=== PATIENT | female | born 1965 | race Caucasian/White ===

== ENCOUNTER 2016-09-18 08:17 | Inpatient (IN) | payer OTHER ==
--- NOTE | 2016-09-18 08:24 | PDOC ---
History of Present Illness - General Chief Complaint: Respiratory Stated Complaint: FEVER,CHILLS Time Seen by Provider: 09/18/16 08:22 History Source: Patient Exam Limitations: No Limitations - History of Present Illness Initial Comments: 09/18/16 08:30 This is a 50 yo F with a history oc Mental retardation, hypothyroidism, prior admission for pneumonia and sepsis Pt has an aspiration risk based on swallowing evaluation and eats pureed foods Pt presents with her aid due to shivering Pt temp checked and noted to be 100.3 No influenza in fellow residents Pt has a history of recurrent pneumonia PMH: Mental retardation, hypothyroidism PSH: denies Meds: please see MAR ALL: Naltrexone Social: lives at a detention 09/18/16 08:31 Limited given pt mental retardation This was obtained from staff members GENERAL/CONSTITUTIONAL: Yes:fever No: weakness, loss of appetite. HEAD, EYES, EARS, NOSE AND THROAT: No: change in vision, ear pain, discharge, sore throat, throat swelling. CARDIOVASCULAR: No: chest pain, syncope RESPIRATORY: Yes: cough No: shortness of breath, wheezing GASTROINTESTINAL: No: nausea, vomiting, diarrhea, abdominal pain GENITOURINARY: No: dysuria, hematuria, frequency, urgency, flank pain. MUSCULOSKELETAL: No: back pain, neck pain, joint pain, muscle swelling or pain SKIN : No: rahs NEUROLOGIC: No: headache, vertigo, paresthesias, weakness ENDOCRINE: No: unexplained weight gain or loss HEMATOLOGIC/LYMPHATIC: No: anemia, easy bleeding, swelling nodes. GENERAL: The patient is in no acute distress. HEAD: Normal with no signs of trauma. EYES: PERRLA, EOMI, sclera anicteric, conjunctiva clear. ENT: Ears normal, nares patent, oropharynx clear without exudates. Moist mucous membranes. NECK: Normal range of motion, supple without lymphadenopathy, JVD, or masses. LUNGS: Bilateral rhonchi at bases, No wheezes, and no crackles. HEART: Tachycardiac, regular, ? murmur LSB ABDOMEN: Soft, nontender, normoactive bowel sounds. No guarding, no rebound. No masses palpable. EXTREMITIES: Normal range of motion, no edema. No clubbing or cyanosis. No erythema, or tenderness. NEUROLOGICAL: Cranial nerves II through XII grossly intact. Normal speech. No focal neurological deficits. MUSCULOSKELETAL: Back non-tender to palpation, no CVA tenderness SKIN: Warm, Dry, normal turgor, no rashes or lesions noted. 09/18/16 09:14 Past History - Past Medical History Allergies/Adverse Reactions: Allergies Allergy/AdvReac Type Severity Reaction Status Date / Time naltrexone HCl [From Trexan] Allergy Unknown Verified 09/18/16 08:19 Home Medications: Ambulatory Orders Buspirone HCl [Buspar -] 15 mg PO TID 09/05/15 Cetirizine HCl 10 mg PO DAILY 09/05/15 Levothyroxine [Synthroid -] 75 mcg PO DAILY 09/05/15 Lovastatin 20 mg PO DAILY 09/05/15 Alendronate Sodium [Binosto] 70 mg PO WEEKLY 09/06/15 Omeprazole [Prilosec] 20 mg PO BID 12/17/15 Aripiprazole [Abilify] 20 mg PO DAILY 07/04/16 Montelukast Na [Singulair -] 10 mg PO HS 07/04/16 Albuterol 2.5/Ipratropium 0.5 [Duoneb -] 1 amp NEB Q4H PRN #0 amp 08/12/16 Acetaminophen [Tylenol] 325 mg PO QID PRN 09/18/16 Aripiprazole [Abilify] 20 mg PO DAILY 09/18/16 Ascorbate Calcium [Vitamin C] 500 mg PO DAILY 09/18/16 Calcium Carb/Vitamin D3/Vit K1 [Calcium + D Soft Chewable Tab] 1 each PO DAILY 09/18/16 Sodium Chloride 1,000 mg PO TID 09/18/16 Valproate Sodium [Depakene -] 25 ml PO HS 09/18/16 Asthma: Yes Hypercholesterolemia: Yes Psychiatric Problems: Yes (INTELLECTUAL DISABILITY, BEHAVIOR DISORDER) Thyroid Disease: Yes (hypo) - Surgical History Abdominal Surgery: No - Immunization History Immunization Up to Date: Yes - Psycho/Social/Smoking Cessation Hx Anxiety: No Suicidal Ideation: No Smoking History: Never smoked Have you smoked in the past 12 months: No Hx Alcohol Use: No Drug/Substance Use Hx: No Substance Use Type: None Hx Substance Use Treatment: No Heart Score/ECG Review #1 ECG reviewed & interpreted by me at: 10:27 09/18/16 10:27 Twelve-lead EKG was performed and reviewed by me. There is normal sinus rhythm with a tachycardiac rate of 105 bpm. The axis is normal. The intervals are normal - pr:134ms, QRS:72ms, QTc:401ms. J point elevation v2, v3. T wave flattening V4-v6 ED Treatment Course - LABORATORY CBC & Chemistry Diagram: 09/18/16 08:28 09/18/16 08:49 Medical Decision Making - Medical Decision Making 09/18/16 08:32 Selected Entries 09/18/16 08:18 Temperature 101 F H Pulse Rate 132 H Blood Pressure 117/63 O2 Sat by Pulse 94 L Oximetry (%) 09/18/16 09:19 09/18/16 09:49 Laboratory Tests 09/18/16 09/18/16 09/18/16 08:28 08:39 08:40 WBC 32.5 H* D Hgb 10.9 Hct 33.5 Plt Count 382 D VBG pH 7.37 POC VBG pCO2 48.4 POC VBG pO2 26.6 L Sodium Potassium Chloride Carbon Dioxide BUN Creatinine Random Glucose Ur Leukocyte Esterase Trace H Urine RBC 0-3 Urine WBC 0-3 09/18/16 08:49 WBC Hgb Hct Plt Count VBG pH POC VBG pCO2 POC VBG pO2 Sodium 133 L D Potassium 4.6 Chloride 98 D Carbon Dioxide 26 D BUN 15 Creatinine 1.0 D Random Glucose 180 H D Ur Leukocyte Esterase Urine RBC Urine WBC CXR: RUL infiltrates noted Pt ordered for vanc and Zosyn (based on chart review) Call placed to hospitalist Given pt history of resp failure and acute decompensation would rather have pt at [facility] 09/18/16 10:34 Pt BP dropped to 78/50 Will give additional fluids Case reviewed with Dr Davis Accepted to ICU 09/18/16 10:34 *DC/Admit/Observation/Transfer Diagnosis at time of Disposition: Sepsis Qualifiers: Sepsis type: sepsis due to unspecified organism Qualified Code(s): A41.9 - Sepsis, unspecified organism Pneumonia Qualifiers: Pneumonia type: due to unspecified organism Laterality: right Lung location: upper lobe of lung Qualified Code(s): J18.9 - Pneumonia, unspecified organism - Discharge Dispostion Condition at time of disposition: Guarded Admit: Yes
[2016-09-18 08:25] VITALS: BMI 23.4
[2016-09-18] MEDS ORDERED: SODIUM CHLORIDE 1,000 ML IV STA ×2 (08:28→10:15)
[2016-09-18] MEDS ORDERED: IBUPROFEN 800 MG/8 ML IJ IVPB ONE ×2 (08:32→09:01)
[2016-09-18 08:47] LABS: URINE APPEARANCE Clear; URINE BILIRUBIN Negative (NEGATIVE); URINE BLOOD Negative (NEGATIVE); URINE GLUCOSE (UA) Negative (NEGATIVE); URINE KETONE Negative (NEGATIVE); URINE NITRITE Negative (NEGATIVE); URINE PROTEIN Negative (NEGATIVE); URINE UROBILINOGEN 0.2 E.U/dl (0.2-1.0)
[2016-09-18 08:50] LABS: URINE COLOR YELLOW; URINE LEUK ESTERASE TRACE (NEGATIVE)
[2016-09-18 08:51] LABS: URINE BACTERIA FEW /hpf (NEGATIVE); URINE RBC 0-3 /hpf (0-3); URINE WBC 0-3 (3-5)
[2016-09-18 09:01] LABS: MEAN PLT VOLUME 8.3 fl (7.5-11.1)
[2016-09-18 09:09] LABS: MCH 30.2 pg (25.7-33.7); MCHC 32.7 g/dl (32.0-36.0); MEAN CELL VOLUME 92.4 fl (80-96); PLATELET COUNT 382 K/MM3 (134-434); RDW 20.8 % (11.6-15.6)
[2016-09-18 09:15] LABS: VENOUS PH 7.37 (7.31-7.41)
[2016-09-18 09:17] LABS: VENOUS BLOOD GAS HCO3 27.5 meq/L (22-29)
[2016-09-18 09:23] LABS: WHITE BLOOD COUNT 32.5 K/mm3 (4.0-10.0)
[2016-09-18 09:37] LABS: ACTIVATED PTT 26.4 SECONDS (24.0-38.9)
[2016-09-18] MEDS ORDERED: MEROPENEM 1 GM in DEXTROSE 5%-WATER - 250 ML IVPB ONE (09:37)
[2016-09-18] MEDS ORDERED: VANCOMYCIN 1,000 MG in DEXTROSE 5%-WATER - 250 ML IVPB ONE (09:37)
[2016-09-18 09:40] LABS: ALBUMIN 2.8 g/dl (3.5-5.0); BILIRUBIN,TOTAL 0.9 mg/dl (0.2-1.0); CALCIUM 8.6 mg/dl (8.4-10.2)
[2016-09-18] MEDS ORDERED: PIPERACILLIN/TAZOB 3.375 GM/50 ML PRE-DOCKED IVPB ONE (09:48)
[2016-09-18] MEDS ORDERED: PIPERACILLIN/TAZOBACTAM 3.375 GM VIAL IVPB ONE (09:56)
[2016-09-18] MEDS ORDERED: VANCOMYCIN 1,000 MG VIAL (RESTRICTED TO ID ONLY) ONE (09:56)
[2016-09-18 10:03] LABS: CPK(DFH) 84 IU/L (26-140)
[2016-09-18 10:10] LABS: INR 1.2 (0.82-1.09); PROTHROMBIN TIME (PATIENT) 13.1 SEC (10.2-13.0)
[2016-09-18 10:53] LABS: TROPONIN I (DFP) < 0.03 ng/ml (0.03-0.50)
[2016-09-18] MEDS ORDERED: SODIUM CHLORIDE 1,000 ML IV ONE (11:35)
--- NOTE | 2016-09-18 14:29 | HP ---
PCP: Emery Cadet CHIEF COMPLAINT: Shivering HISTORY OF PRESENT ILLNESS: This is a 50-year-old woman who was brought in to the ER today because she was noted to be shivering and was found to have a temp of 100.3. She has a history of Down syndrome and mental retardation and is unable to provide a history. She has a history of recurrent pneumonia, aspiration. In the ER, her temp was 101 and HR 132. Chest x-ray showed a right- sided infiltrate. She was treated with Zosyn and Vancomycin. PAST MEDICAL HISTORY Hyperlipidemia Hypothyroidism Hyponatremia Down syndrome PAST SURGICAL HISTORY Unobtainable Allergies naltrexone HCl [From Trexan] Allergy (Unknown, Verified 09/18/16 08:19) HOME MEDICATIONS 3 Medication Instructions Recorded Buspirone HCl [Buspar -] 15 mg PO TID 09/05/15 Cetirizine HCl 10 mg PO DAILY 09/05/15 Levothyroxine [Synthroid -] 75 mcg PO DAILY 09/05/15 Lovastatin 20 mg PO DAILY 09/05/15 Alendronate Sodium [Binosto] 70 mg PO WEEKLY 09/06/15 Omeprazole [Prilosec] 20 mg PO BID 12/17/15 Aripiprazole [Abilify] 20 mg PO DAILY 07/04/16 Montelukast Na [Singulair -] 10 mg PO HS 07/04/16 Albuterol 2.5/Ipratropium 0.5 1 amp NEB Q4H PRN #0 amp 08/12/16 [Duoneb -] Acetaminophen [Tylenol] 325 mg PO QID PRN 09/18/16 Aripiprazole [Abilify] 20 mg PO DAILY 09/18/16 Ascorbate Calcium [Vitamin C] 500 mg PO DAILY 09/18/16 Calcium Carb/Vitamin D3/Vit K1 1 each PO DAILY 09/18/16 [Calcium + D Soft Chewable Tab] Sodium Chloride 1,000 mg PO TID 09/18/16 Valproate Sodium [Depakene -] 25 ml PO HS 09/18/16 Social History Smoking: Never smoked Alcohol: None Drugs: None Recent Travel: No Family History: Unobtainable REVIEW OF SYSTEMS Unobtainable PHYSICAL EXAMINATION Vital Signs Period Temp Pulse Resp BP Sys/Chinchilla Pulse Ox Last 24 Hr 98.3 F-101 F 75-132 16-26 78-126/41-92 94-98 GENERAL: Awake, alert, non-verbal, in no acute distress. HEAD: Normal with no signs of trauma. EYES: Pupils equal, round and reactive to light, sclerae anicteric, conjunctivae clear. EARS, NOSE, THROAT: Ears normal, nares patent, oropharynx clear without exudates. Moist mucous membranes. NECK: Normal range of motion, supple without lymphadenopathy, JVD, or masses. LUNGS: Breath sounds equal, bibasilar crackles. No wheezes. No accessory muscle use. HEART: Regular rate and rhythm, normal S1 and S2 without murmur, rub or gallop. ABDOMEN: Soft, no apparent tenderness, not distended, normoactive bowel sounds, no guarding, no rebound, no masses. No hepatomegaly or splenomegaly. MUSCULOSKELETAL: Normal range of motion at all joints. No bony deformities or tenderness. No CVA tenderness. UPPER EXTREMITIES: 2+ pulses, warm, well-perfused. No cyanosis. No clubbing. Cap refill <2 seconds. No peripheral edema. LOWER EXTREMITIES: 2+ pulses, warm, well-perfused. No calf tenderness. No peripheral edema. NEUROLOGICAL: Unable to assess. PSYCHIATRIC: Unable to assess. SKIN: Warm, dry, normal turgor, no rashes or lesions noted. Laboratory Tests 09/18/16 09/18/16 09/18/16 08:28 08:39 08:40 WBC 32.5 H* D RBC 3.62 Hgb 10.9 Hct 33.5 MCV 92.4 MCHC 32.7 RDW 20.8 H Plt Count 382 D MPV 8.3 Neutrophils % 64.0 D Lymphocytes % 3.0 L D Monocytes % 2.0 L Band Neutrophils 31.0 H D INR PTT (Actin FS) VBG pH 7.37 POC VBG pCO2 48.4 POC VBG pO2 26.6 L Sodium Potassium Chloride Carbon Dioxide Anion Gap BUN Creatinine Creat Clearance w eGFR Random Glucose Lactic Acid Calcium Total Bilirubin AST ALT Alkaline Phosphatase Creatine Kinase Troponin I Total Protein Albumin Urine Color Yellow Urine Appearance Clear Urine pH 7.0 Ur Specific [place] 1.015 Urine Protein Negative Urine Glucose (UA) Negative Urine Ketones Negative Urine Blood Negative Urine Nitrite Negative Urine Bilirubin Negative Urine Urobilinogen 0.2 e.u/dl Ur Leukocyte Esterase Trace H Urine RBC 0-3 Urine WBC 0-3 Ur Epithelial Cells Few Urine Bacteria Few Blood Type Antibody Screen 09/18/16 09/18/16 09/18/16 08:49 08:49 08:49 WBC RBC Hgb Hct MCV MCHC RDW Plt Count MPV Neutrophils % Lymphocytes % Monocytes % Band Neutrophils INR 1.20 PTT (Actin FS) 26.4 VBG pH POC VBG pCO2 POC VBG pO2 Sodium 133 L D Potassium 4.6 Chloride 98 D Carbon Dioxide 26 D Anion Gap 9 BUN 15 Creatinine 1.0 D Creat Clearance w eGFR 58.45 Random Glucose 180 H D Lactic Acid 2.810 H* Calcium 8.6 Total Bilirubin 0.9 D AST 42 D ALT 10 D Alkaline Phosphatase 60 Creatine Kinase Troponin I Total Protein 7.0 Albumin 2.8 L Urine Color Urine Appearance Urine pH Ur Specific [place] Urine Protein Urine Glucose (UA) Urine Ketones Urine Blood Urine Nitrite Urine Bilirubin Urine Urobilinogen Ur Leukocyte Esterase Urine RBC Urine WBC Ur Epithelial Cells Urine Bacteria Blood Type Antibody Screen 09/18/16 09/18/16 09/18/16 08:49 09:38 12:30 WBC RBC Hgb Hct MCV MCHC RDW Plt Count MPV Neutrophils % Lymphocytes % Monocytes % Band Neutrophils INR PTT (Actin FS) VBG pH POC VBG pCO2 POC VBG pO2 Sodium Potassium Chloride Carbon Dioxide Anion Gap BUN Creatinine Creat Clearance w eGFR Random Glucose Lactic Acid 1.353 Calcium Total Bilirubin AST ALT Alkaline Phosphatase Creatine Kinase 84 Troponin I < 0.03 L Total Protein Albumin Urine Color Urine Appearance Urine pH Ur Specific [place] Urine Protein Urine Glucose (UA) Urine Ketones Urine Blood Urine Nitrite Urine Bilirubin Urine Urobilinogen Ur Leukocyte Esterase Urine RBC Urine WBC Ur Epithelial Cells Urine Bacteria Blood Type B POSITIVE Antibody Screen Negative EKG: Sinus tachycardia, rate 105, no ischemic changes. Chest x-ray: Infiltrates at both bases. ASSESSMENT/PLAN: This is a 50-year-old woman with a history of hypothyroidism, hyperlipidemia, hyponatremia, Down syndrome, and recurrent pneumonia likely from aspiration who was brought in to the ER for shivering and a temp of 100.3. In the ER, she was found to have temp 101, HR 132, WBC 32.5 with 31% bands, sodium 133, lactic acid 2.81. She is being admitted now for treatment of an emergent condition. 1. Sepsis secondary to healthcare-associated pneumonia, probable aspiration - Admit to ICU - Continue Zosyn, Vancomycin - DuoNeb as needed - IV fluid - ID consult - Pulmonary/critical care consult 2. Lactic acidemia - Secondary to sepsis - Improved with IV fluid 3. Hyponatremia - IV normal saline - Continue sodium chloride tabs 4. Hypothyroidism - Continue Synthroid 5. Hyperlipidemia - Continue Mevacor 6. Down syndrome with severe mental retardation - Continue Jimmy Phillips BuSpar Visit type - Emergency Visit Emergency Visit: Yes ED Registration Date: 09/18/16 Care time: The patient presented to the Emergency Department on the above date and was hospitalized for further evaluation of their emergent condition. - New Patient This patient is new to me today: Yes Date on this admission: 09/18/16 - Critical Care Critical Care patient: Yes Total Critical Care Time (in minutes): 45 Critical Care Statement: The care of this patient involved high complexity decision making to prevent further life threatening deterioration of the patient 's condition and/or to evalute & treat vital organ system(s) failure or risk of failure.
[2016-09-18] MEDS ORDERED: ALBUTEROL SO4 2.5/IPRATROPIUM 0.5 INH SOL 3 ML VIAL.NEB. NEB PRN (14:30)
[2016-09-18] MEDS ORDERED: ACETAMINOPHEN 325 MG TABLET (FP) PO PRN (14:32)
[2016-09-18] MEDS ORDERED: ONDANSETRON 4 MG/2 ML VIAL IVPB PRN (14:32)
[2016-09-18] MEDS ORDERED: SODIUM CHLORIDE 1,000 ML IV SCH (14:45)
--- NOTE | 2016-09-18 15:15 | EKG ---
Test Reason : Blood Pressure : / mmHG Vent. Rate : 105 BPM Atrial Rate : 105 BPM P-R Int : 134 ms QRS Dur : 072 ms QT Int : 304 ms P-R-T Axes : 065 047 078 degrees QTc Int : 401 ms SINUS TACHYCARDIA MINIMAL VOLTAGE CRITERIA FOR LVH, MAY BE NORMAL VARIANT NONSPECIFIC T WAVE ABNORMALITY ABNORMAL ECG WHEN COMPARED WITH ECG OF 31-JUL-2016 15:27, Criteria for septal infarct is not present Confirmed by TRAVIS HYATT, UZMA ([id number]) on 09/18/2016 3:14:39 PM Referred By: MERY BUCKLEY Confirmed By:UZMA ROBLES MD
--- NOTE | 2016-09-18 15:40 | CONSULT ---
Consult Consult Specialty:: PULMONARY/CCM Referred by:: Dr. Solis Reason for Consultation:: sepsis - History of Present Illness Chief Complaint: fever History of Present Illness: 50yo female with h/o mental retardation, hypothyroidism, recurrent pneumonia, [facility] resident who presents with fever. She is unable to provide further history at this time. Febrile to 101 on admission, found to have bibasilar infiltrates on CXR. Hypotensive and with lactic acidosis, started on IVF and transferred to the ICU for further monitoring. Per aide, no sick contacts at the [facility]. She is on a pureed diet normally. 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) Pulmonary: Yes: Pneumonia Gastrointestinal: Yes: Other (see CT-chest results regarding esophageal dilation ) Endocrine: Yes: Hypothyroidism - Alcohol/Substance Use Hx Alcohol Use: No History of Substance Use: reports: None - Smoking History Smoking history: Never smoked Have you smoked in the past 12 months: No - Social History ADL: Support Services Occupation: disabled History of Recent Travel: No Home Medications - Allergies Allergies/Adverse Reactions: Allergies Allergy/AdvReac Type Severity Reaction Status Date / Time naltrexone HCl [From Trexan] Allergy Unknown Verified 09/18/16 08:19 - Home Medications Home Medications: Ambulatory Orders Buspirone HCl [Buspar -] 15 mg PO TID 09/05/15 Cetirizine HCl 10 mg PO DAILY 09/05/15 Levothyroxine [Synthroid -] 75 mcg PO DAILY 09/05/15 Lovastatin 20 mg PO DAILY 09/05/15 Alendronate Sodium [Binosto] 70 mg PO WEEKLY 09/06/15 Omeprazole [Prilosec] 20 mg PO BID 12/17/15 Aripiprazole [Abilify] 20 mg PO DAILY 07/04/16 Montelukast Na [Singulair -] 10 mg PO HS 07/04/16 Albuterol 2.5/Ipratropium 0.5 [Duoneb -] 1 amp NEB Q4H PRN #0 amp 08/12/16 Acetaminophen [Tylenol] 325 mg PO QID PRN 09/18/16 Aripiprazole [Abilify] 20 mg PO DAILY 09/18/16 Ascorbate Calcium [Vitamin C] 500 mg PO DAILY 09/18/16 Calcium Carb/Vitamin D3/Vit K1 [Calcium + D Soft Chewable Tab] 1 each PO DAILY 09/18/16 Sodium Chloride 1,000 mg PO TID 09/18/16 Valproate Sodium [Depakene -] 25 ml PO HS 09/18/16 Family Disease History - Family Disease History Family History: Unable to Obtain Review of Systems Unable to obtain ROS, reason: pt nonverbal Physical Exam Vital Sings: Vital Signs Temperature 98.3 F 09/18/16 12:35 Pulse Rate 75 09/18/16 12:35 Respiratory Rate 25 H 09/18/16 12:35 Blood Pressure 126/92 09/18/16 12:35 O2 Sat by Pulse Oximetry (%) 95 09/18/16 13:09 Constitutional: Yes: Calm Eyes: Yes: Conjunctiva Clear, EOM Intact HENT: Yes: Atraumatic, Normocephalic Neck: Yes: Supple, Trachea Midline Cardiovascular: Yes: Regular Rate and Rhythm Respiratory: Yes: Rales (scattered) ...Clubbing: No Gastrointestinal: Yes: Normal Bowel Sounds, Soft. No: Tenderness Peripheral Pulses WNL: No Imaging - Results Chest X-ray: Report Reviewed, Image Reviewed (bibasilar infiltrates) Problem List - Problems (1) Pneumonia Code(s): J18.9 - PNEUMONIA, UNSPECIFIED ORGANISM Qualifiers: Pneumonia type: due to unspecified organism Laterality: right Lung location: upper lobe of lung Qualified Code(s): J18.9 - Pneumonia, unspecified organism (2) Severe sepsis Code(s): A41.9 - SEPSIS, UNSPECIFIED ORGANISM R65.20 - SEVERE SEPSIS WITHOUT SEPTIC SHOCK (3) Lactic acidosis Code(s): E87.2 - ACIDOSIS (4) Hyponatremia Code(s): E87.1 - HYPO-OSMOLALITY AND HYPONATREMIA (5) Hypothyroidism Code(s): E03.9 - HYPOTHYROIDISM, UNSPECIFIED Qualifiers: Hypothyroidism type: acquired Qualified Code(s): E03.9 - Hypothyroidism, unspecified (6) Mental retardation Code(s): F79 - UNSPECIFIED INTELLECTUAL DISABILITIES Assessment/Plan Recurrent Pneumonia r/o Aspiration Severe Sepsis Lactic Acidosis Mental Retardation Hypothyroidism - antibiotics to cover health care acquired organisms - f/u cultures - flu swab - IVF resuscitation - monitor urine output, creatinine - aspiration precautions - PO as tolerated - DVT prophylaxis - ICU monitoring for now Thank you for this consult Michael Davis MD
[2016-09-18] MEDS: PIPERACILLIN/TAZOB 3.375 GM/50 ML PRE-DOCKED IVPB SCH ×2 (16:12→17:37)
--- NOTE | 2016-09-18 17:41 | CONSULT ---
Consult Consult Specialty:: infectious diseases Reason for Consultation:: fever,hypotension - History of Present Illness Chief Complaint: fever History of Present Illness: history obtained from the charts and the aid patient was found to be febrile in the snf and was brought to the hospital and was found to be hypotensive and was admitted to the hospital patient has been known to me and she gets repeated pneumonias because of her condition currently patient looks stable and according to the aid feeling better patients blood pressure is settling down patient has a history of megaoesophagus and multiple aspiration pna on work up patient had severe leukocytosis and lactic acidosis patient was in sepsis - History Source History Provided By: Medical Record Limitations to Obtaining History: Clinical Condition - 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) Pulmonary: Yes: Pneumonia Gastrointestinal: Yes: Other (see CT-chest results regarding esophageal dilation ) Endocrine: Yes: Hypothyroidism - Alcohol/Substance Use Hx Alcohol Use: No History of Substance Use: reports: None - Smoking History Smoking history: Never smoked Have you smoked in the past 12 months: No - Social History ADL: Support Services Occupation: disabled History of Recent Travel: No Home Medications - Allergies Allergies/Adverse Reactions: Allergies Allergy/AdvReac Type Severity Reaction Status Date / Time naltrexone HCl [From Trexan] Allergy Unknown Verified 09/18/16 08:19 - Home Medications Home Medications: Ambulatory Orders Buspirone HCl [Buspar -] 15 mg PO TID 09/05/15 Cetirizine HCl 10 mg PO DAILY 09/05/15 Levothyroxine [Synthroid -] 75 mcg PO DAILY 09/05/15 Lovastatin 20 mg PO DAILY 09/05/15 Alendronate Sodium [Binosto] 70 mg PO WEEKLY 09/06/15 Omeprazole [Prilosec] 20 mg PO BID 12/17/15 Aripiprazole [Abilify] 20 mg PO DAILY 07/04/16 Montelukast Na [Singulair -] 10 mg PO HS 07/04/16 Albuterol 2.5/Ipratropium 0.5 [Duoneb -] 1 amp NEB Q4H PRN #0 amp 08/12/16 Acetaminophen [Tylenol] 325 mg PO QID PRN 09/18/16 Aripiprazole [Abilify] 20 mg PO DAILY 09/18/16 Ascorbate Calcium [Vitamin C] 500 mg PO DAILY 09/18/16 Calcium Carb/Vitamin D3/Vit K1 [Calcium + D Soft Chewable Tab] 1 each PO DAILY 09/18/16 Sodium Chloride 1,000 mg PO TID 09/18/16 Valproate Sodium [Depakene -] 25 ml PO HS 09/18/16 Review of Systems - Review of Systems Constitutional: reports: Fever Eyes: reports: No Symptoms HENT: reports: No Symptoms Neck: reports: No Symptoms Cardiovascular: reports: No Symptoms Respiratory: reports: No Symptoms Gastrointestinal: reports: No Symptoms Genitourinary: reports: No Symptoms Neurological: reports: No Symptoms Physical Exam Vital Signs: Vital Signs Temperature 98.7 F 09/18/16 14:00 Pulse Rate 82 09/18/16 14:00 Respiratory Rate 32 H 09/18/16 14:00 Blood Pressure 98/58 09/18/16 14:00 O2 Sat by Pulse Oximetry (%) 95 09/18/16 13:09 Constitutional: Yes: No Distress, Calm Eyes: Yes: Conjunctiva Clear Cardiovascular: Yes: Regular Rate and Rhythm Respiratory: Yes: Regular, Poor Air Entry Gastrointestinal: Yes: Normal Bowel Sounds, Soft Musculoskeletal: Yes: WNL Extremities: Yes: WNL Neurological: Yes: Alert, Other Psychiatric: Yes: Alert Imaging - Results Chest X-ray: Report Reviewed, Image Reviewed Assessment/Plan Problem List - Problems (1) Pneumonia Code(s): J18.9 - PNEUMONIA, UNSPECIFIED ORGANISM Qualifiers: Pneumonia type: due to unspecified organism Laterality: right Lung location: upper lobe of lung Qualified Code(s): J18.9 - Pneumonia, unspecified organism (2) Severe sepsis Code(s): A41.9 - SEPSIS, UNSPECIFIED ORGANISM R65.20 - SEVERE SEPSIS WITHOUT SEPTIC SHOCK (3) Lactic acidosis Code(s): E87.2 - ACIDOSIS (4) Hyponatremia Code(s): E87.1 - HYPO-OSMOLALITY AND HYPONATREMIA (5) Hypothyroidism Code(s): E03.9 - HYPOTHYROIDISM, UNSPECIFIED Qualifiers: Hypothyroidism type: acquired Qualified Code(s): E03.9 - Hypothyroidism, unspecified (6) Mental retardation Code(s): F79 - UNSPECIFIED INTELLECTUAL DISABILITIES plan we will continue zosyn for now follow lactic acid and wbc if either dont improve will add another abx await for cx to be back aspiration precautions cc time 40 min
[2016-09-18] MEDS: SODIUM CHLORIDE 1,000 ML IV SCH (17:45)
[2016-09-18] MEDS ORDERED: PT OWN MED DRAWER 7, Y5N ONE (21:26)
[2016-09-18] MEDS: MUPIROCIN 2% TOPICAL OINTMENT FOR DECOLONIZATION NS SCH (21:43)
[2016-09-18] MEDS: busPIRone HCL 5 MG TABLET PO SCH (21:43)
[2016-09-18] MEDS: MONTELUKAST NA 10 MG TABLET PO SCH (21:44)
[2016-09-18] MEDS: PANTOPRAZOLE 20 MG TABLET (FP) PO SCH (21:44)
[2016-09-18] MEDS: VALPROATE SODIUM 250 MG/5 ML UNIT DOSE CUP PO SCH (21:44)
[2016-09-18] MEDS: ATORVASTATIN CA 10 MG TABLET (FP) PO SCH (21:44)
[2016-09-18] MEDS: HEPARIN NA (PORCINE) 5,000 UNITS/ML 1ML VIAL SQ SCH (21:45)
[2016-09-18] MEDS: ARIPiprazole 10 MG TABLET PO SCH (21:45)
[2016-09-18] MEDS: SODIUM CHLORIDE 1 GM TABLET PO SCH (21:45)
[2016-09-18] MEDS: CHLORHEXIDINE GLUCONATE 4% CLEANSER FOR DECOLONIZATION TP SCH (21:45)
[2016-09-18] MEDS ORDERED: SODIUM CHLORIDE 1000 MG PO SCH (22:00)
[2016-09-18] MEDS ORDERED: ARIPiprazole 20 MG TABLET PO SCH (22:00)
[2016-09-18] MEDS ORDERED: [UNRECOGNIZED DRUG - OTHER] PO SCH (22:00)
[2016-09-18] MEDS ORDERED: PATIENT'S OWN MEDICATION (NON-FORMULARY) (Omeprazole Pediatric Solution 20 MG) PO SCH (22:00)
[2016-09-18] MEDS ORDERED: busPIRone HCL 10 MG TABLET (FP) PO SCH (22:00)
[2016-09-19] MEDS: PIPERACILLIN/TAZOB 3.375 GM/50 ML PRE-DOCKED IVPB SCH ×3 (01:34→17:35)
[2016-09-19] MEDS ORDERED: PT OWN MED DRAWER 7, Y5N ONE ×6 (05:24→15:07)
[2016-09-19] MEDS: busPIRone HCL 5 MG TABLET PO SCH ×3 (06:05→21:20)
[2016-09-19] MEDS: HEPARIN NA (PORCINE) 5,000 UNITS/ML 1ML VIAL SQ SCH ×3 (06:05→21:21)
[2016-09-19] MEDS: SODIUM CHLORIDE 1 GM TABLET PO SCH ×3 (06:07→21:23)
[2016-09-19 06:26] LABS: BASOPHIL 0.4 % (0-2.0); EOSINOPHIL 0.8 % (0-4.5); MCH 29.8 pg (25.7-33.7); MCHC 31.2 g/dl (32.0-36.0); MEAN CELL VOLUME 95.5 fl (80-96); MEAN PLT VOLUME 8.7 fl (7.5-11.1); NEUTROPHILS 85.5 % (42.8-82.8); PLATELET COUNT 304 K/MM3 (134-434); RDW 21.8 % (11.6-15.6); WHITE BLOOD COUNT 18.6 K/mm3 (4.0-10.0)
[2016-09-19] MEDS ORDERED: LEVOTHYROXINE NA 75 MCG TABLET (FP) PO SCH (07:00)
[2016-09-19] MEDS: SODIUM CHLORIDE 1,000 ML IV SCH (07:16)
[2016-09-19 07:49] LABS: ANISOCYTOSIS 2+; HYPOCHROMIA 1+; MICROCYTOSIS 1+
[2016-09-19 08:31] LABS: CALCIUM 7.4 mg/dL (8.5-10.1); CREATININE 0.7 mg/dL (0.55-1.02); MAGNESIUM 2.1 mg/dL (1.8-2.4); PHOSPHOROUS 2.7 mg/dL (2.5-4.9)
[2016-09-19] MEDS: PANTOPRAZOLE 20 MG TABLET (FP) PO SCH ×2 (09:51→21:23)
[2016-09-19] MEDS: MUPIROCIN 2% TOPICAL OINTMENT FOR DECOLONIZATION NS SCH (09:53)
[2016-09-19] MEDS ORDERED: LORATADINE 10 MG TABLET PO SCH (10:00)
[2016-09-19] MEDS ORDERED: ASCORBIC ACID 500 MG TABLET (FP) PO SCH (10:00)
[2016-09-19] MEDS ORDERED: PATIENT'S OWN MEDICATION (NON-FORMULARY) (Ascorbate Calcium [Vitamin C] 500 MG) PO SCH (10:00)
[2016-09-19] MEDS ORDERED: PATIENT'S OWN MEDICATION (NON-FORMULARY) (Cetirizine Hcl [Cetirizine Hcl] 10 MG) PO SCH (10:00)
[2016-09-19] MEDS ORDERED: PATIENT'S OWN MEDICATION (NON-FORMULARY) (Lovastatin [Lovastatin] 20 MG) PO SCH (10:00)
[2016-09-19] MEDS ORDERED: CALCIUM 500MG/VIT-D 200 UNITS COMBO TABLET (FP) PO SCH (10:00)
[2016-09-19] MEDS ORDERED: PATIENT'S OWN MEDICATION (NON-FORMULARY) (Calcium Carb/Vitamin D3/Vit K1 [Calcium + D Soft PO SCH (10:00)
[2016-09-19] MEDS ORDERED: SODIUM CHLORIDE 1,000 ML IV SCH (11:11)
--- NOTE | 2016-09-19 13:02 | PN ---
Teaching Attending Note Name of Resident: Juan Valerio ATTENDING PHYSICIAN STATEMENT I saw and evaluated the patient. I reviewed the resident's note and discussed the case with the resident. I agree with the resident's findings and plan as documented. SUBJECTIVE: Patient seen and examined in the ICU. Awake and responsive. Some dry cough is noted. CXR: some increase bibasilar effusions Intake & Output 09/16/16 09/17/16 09/18/16 09/19/16 23:59 23:59 23:59 23:59 Intake Total 3300 1000 Output Total 650 Balance 2650 1000 Weight 109 lb 12.643 oz Last Vital Signs Temp Pulse Resp BP Pulse Ox 98.4 F 54 L 16 86/49 95 09/19/16 07:35 09/19/16 10:00 09/19/16 10:00 09/19/16 10:00 09/19/16 09:00 Active Medications Acetaminophen (Tylenol -) 650 mg PO Q4H PRN PRN Reason: FEVER OR PAIN Albuterol/Ipratropium (Duoneb -) 1 amp NEB Q4H PRN PRN Reason: SHORTNESS OF BREATH Aripiprazole (Abilify) 20 mg PO [facility] Last Admin: 09/18/16 21:45 Dose: 20 mg Ascorbic Acid (Vitamin C -) 500 mg PO DAILY [facility] Last Admin: 09/19/16 09:51 Dose: 500 mg Atorvastatin Calcium (Lipitor -) 10 mg PO HS [facility] Last Admin: 09/18/16 21:44 Dose: 10 mg Buspirone HCl (Buspar -) 15 mg PO TID [facility] Last Admin: 09/19/16 06:05 Dose: 15 mg Calcium Carbonate/Cholecalciferol (Os-Christian 500+D -) 1 tab PO DAILY [facility] Last Admin: 09/19/16 09:50 Dose: 1 tab Chlorhexidine Gluconate (Hibiclens For Decolonization -) 1 applic TP [facility] Last Admin: 09/18/16 21:45 Dose: 1 applic Heparin Sodium (Porcine) (Heparin -) 5,000 unit SQ TID [facility] Last Admin: 09/19/16 06:05 Dose: 5,000 unit Levothyroxine Sodium (Synthroid -) 75 mcg PO ACBK [facility] Last Admin: 09/19/16 06:07 Dose: 75 mcg Loratadine (Claritin -) 10 mg PO DAILY [facility] Last Admin: 09/19/16 09:46 Dose: 10 mg Montelukast Sodium (Singulair -) 10 mg PO [facility] Last Admin: 09/18/16 21:44 Dose: 10 mg Mupirocin (Bactroban Ointment (For Decolonization) -) 1 applic NS BID [facility] Stop: 09/23/16 21:59 Last Admin: 09/19/16 09:53 Dose: 1 applic Ondansetron HCl (Zofran Injection) 4 mg IVPB Q4H PRN PRN Reason: NAUSEA Pantoprazole Sodium (Protonix -) 20 mg PO BID [facility] Last Admin: 09/19/16 09:51 Dose: 20 mg Piperacillin Sod/Tazobactam Sod (Zosyn 3.375gm Ivpb (Pre-Docked)) 3.375 gm IVPB Q8H-IV [facility] Last Admin: 09/19/16 09:51 Dose: 3.375 gm Sodium Chloride (Sodium Chloride Tablet -) 1 gm PO TID [facility] Last Admin: 09/19/16 06:07 Dose: 1 gm Valproate Sodium (Depakene -) 1,250 mg PO [facility] Last Admin: 09/18/16 21:44 Dose: 1,250 mg Constitutional: Yes: NAD Eyes: Yes: Conjunctiva Clear, EOM Intact HENT: Yes: Atraumatic, Normocephalic Neck: Yes: Supple, Trachea Midline Cardiovascular: Yes: Regular Rate and Rhythm Respiratory: Yes: Bibasilar rhonchi ...Clubbing: No Gastrointestinal: Yes: Normal Bowel Sounds, Soft. No: Tenderness Peripheral Pulses WNL: No Laboratory Results - last 24 hr 09/18/16 09/19/16 09/19/16 12:30 05:05 05:05 WBC 18.6 H D RBC 3.29 L Hgb 9.8 L D Hct 31.4 L MCV 95.5 MCHC 31.2 L RDW 21.8 H Plt Count 304 D MPV 8.7 Neutrophils % 85.5 H Lymphocytes % 8.6 D Monocytes % 4.7 Eosinophils % 0.8 Basophils % 0.4 Hypochromic-Microcytic 1+ Anisocytosis 2+ Microcytosis 1+ Macrocytosis 1+ Sodium 144 Potassium 4.6 D Chloride 108 H Carbon Dioxide 29 Anion Gap 7 L BUN 9 Creatinine 0.7 D Random Glucose 92 Lactic Acid 1.353 Calcium 7.4 L Phosphorus 2.7 D Magnesium 2.1 Problem List - Problems (1) Pneumonia Code(s): J18.9 - PNEUMONIA, UNSPECIFIED ORGANISM Qualifiers: Pneumonia type: due to unspecified organism Laterality: right Lung location: upper lobe of lung Qualified Code(s): J18.9 - Pneumonia, unspecified organism (2) Severe sepsis Code(s): A41.9 - SEPSIS, UNSPECIFIED ORGANISM R65.20 - SEVERE SEPSIS WITHOUT SEPTIC SHOCK (3) Lactic acidosis Code(s): E87.2 - ACIDOSIS (4) Hyponatremia Code(s): E87.1 - HYPO-OSMOLALITY AND HYPONATREMIA (5) Hypothyroidism Code(s): E03.9 - HYPOTHYROIDISM, UNSPECIFIED Qualifiers: Hypothyroidism type: acquired Qualified Code(s): E03.9 - Hypothyroidism, unspecified (6) Mental retardation Code(s): F79 - UNSPECIFIED INTELLECTUAL DISABILITIES Assessment/Plan Recurrent Pneumonia (?) Aspiration Severe Sepsis Lactic Acidosis Mental Retardation Hypothyroidism - antibiotics to cover health care acquired organisms - f/u cultures - flu swab - D/C IVF - monitor urine output, creatinine - aspiration precautions - PO as tolerated - DVT prophylaxis - Floor Dr Joshua CCTime 35"
--- NOTE | 2016-09-19 14:10 | PN ---
Progress Note, Physician History of Present Illness: patient doing much better no issues tolerated diet - Current Medication List Current Medications: Active Medications Acetaminophen (Tylenol -) 650 mg PO Q4H PRN PRN Reason: FEVER OR PAIN Albuterol/Ipratropium (Duoneb -) 1 amp NEB Q4H PRN PRN Reason: SHORTNESS OF BREATH Aripiprazole (Abilify) 20 mg PO [facility] Last Admin: 09/18/16 21:45 Dose: 20 mg Ascorbic Acid (Vitamin C -) 500 mg PO DAILY [facility] Last Admin: 09/19/16 09:51 Dose: 500 mg Atorvastatin Calcium (Lipitor -) 10 mg PO [facility] Last Admin: 09/18/16 21:44 Dose: 10 mg Buspirone HCl (Buspar -) 15 mg PO TID [facility] Last Admin: 09/19/16 06:05 Dose: 15 mg Calcium Carbonate/Cholecalciferol (Os-Christian 500+D -) 1 tab PO DAILY [facility] Last Admin: 09/19/16 09:50 Dose: 1 tab Chlorhexidine Gluconate (Hibiclens For Decolonization -) 1 applic TP [facility] Last Admin: 09/18/16 21:45 Dose: 1 applic Heparin Sodium (Porcine) (Heparin -) 5,000 unit SQ TID [facility] Last Admin: 09/19/16 06:05 Dose: 5,000 unit Levothyroxine Sodium (Synthroid -) 75 mcg PO ACBK [facility] Last Admin: 09/19/16 06:07 Dose: 75 mcg Loratadine (Claritin -) 10 mg PO DAILY [facility] Last Admin: 09/19/16 09:46 Dose: 10 mg Montelukast Sodium (Singulair -) 10 mg PO [facility] Last Admin: 09/18/16 21:44 Dose: 10 mg Mupirocin (Bactroban Ointment (For Decolonization) -) 1 applic NS BID [facility] Stop: 09/23/16 21:59 Last Admin: 09/19/16 09:53 Dose: 1 applic Ondansetron HCl (Zofran Injection) 4 mg IVPB Q4H PRN PRN Reason: NAUSEA Pantoprazole Sodium (Protonix -) 20 mg PO BID [facility] Last Admin: 09/19/16 09:51 Dose: 20 mg Piperacillin Sod/Tazobactam Sod (Zosyn 3.375gm Ivpb (Pre-Docked)) 3.375 gm IVPB Q8H-IV [facility] Last Admin: 09/19/16 09:51 Dose: 3.375 gm Sodium Chloride (Sodium Chloride Tablet -) 1 gm PO TID [facility] Last Admin: 09/19/16 06:07 Dose: 1 gm Valproate Sodium (Depakene -) 1,250 mg PO HS [facility] Last Admin: 09/18/16 21:44 Dose: 1,250 mg - Objective Vital Signs: Vital Signs Temperature 98.4 F 09/19/16 07:35 Pulse Rate 54 L 09/19/16 10:00 Respiratory Rate 16 09/19/16 10:00 Blood Pressure 86/49 09/19/16 10:00 O2 Sat by Pulse Oximetry (%) 95 09/19/16 09:00 Constitutional: Yes: No Distress, Calm Cardiovascular: Yes: Regular Rate and Rhythm Respiratory: Yes: Regular, Poor Air Entry Gastrointestinal: Yes: Normal Bowel Sounds, Soft Musculoskeletal: Yes: WNL Extremities: Yes: WNL Neurological: Yes: Alert, Other Labs: CBC, BMP 09/19/16 05:05 09/19/16 05:05 INR, PTT INR 1.20 (0.82-1.09) 09/18/16 08:49 Assessment/Plan Problem List - Problems (1) Pneumonia Code(s): J18.9 - PNEUMONIA, UNSPECIFIED ORGANISM Qualifiers: Pneumonia type: due to unspecified organism Laterality: right Lung location: upper lobe of lung Qualified Code(s): J18.9 - Pneumonia, unspecified organism (2) Severe sepsis Code(s): A41.9 - SEPSIS, UNSPECIFIED ORGANISM R65.20 - SEVERE SEPSIS WITHOUT SEPTIC SHOCK (3) Lactic acidosis Code(s): E87.2 - ACIDOSIS (4) Hyponatremia Code(s): E87.1 - HYPO-OSMOLALITY AND HYPONATREMIA (5) Hypothyroidism Code(s): E03.9 - HYPOTHYROIDISM, UNSPECIFIED Qualifiers: Hypothyroidism type: acquired Qualified Code(s): E03.9 - Hypothyroidism, unspecified (6) Mental retardation Code(s): F79 - UNSPECIFIED INTELLECTUAL DISABILITIES plan continue abx wbc trending down cx no growth so far aspiration precautions cc time 40 min
--- NOTE | 2016-09-19 16:03 | PN ---
Physical Exam: SUBJECTIVE: Patient seen and examined in the ICU. Non verbal at baseline, arousable with touch. Aid at bedside, states pt did not sleep well overnight. OBJECTIVE: Vital Signs Period Temp Pulse Resp BP Sys/Chinchilla Pulse Ox Last 24 Hr 97.2 F-99 F 50-120 12-24 86-149/47-95 95-100 Pe Neuro: awake, alert, cn 2-12intact, NAD HEENT: protruding tongue, epicanthal folds Pulm: diminished based R>L CV: s1 s2 rrr no mrg Abd: s nt nd + bs Ext: warm, no edema Laboratory Results - last 24 hr 09/19/16 09/19/16 05:05 05:05 WBC 18.6 H D RBC 3.29 L Hgb 9.8 L D Hct 31.4 L MCV 95.5 MCHC 31.2 L RDW 21.8 H Plt Count 304 D MPV 8.7 Neutrophils % 85.5 H Lymphocytes % 8.6 D Monocytes % 4.7 Eosinophils % 0.8 Basophils % 0.4 Hypochromic-Microcytic 1+ Anisocytosis 2+ Microcytosis 1+ Macrocytosis 1+ Sodium 144 Potassium 4.6 D Chloride 108 H Carbon Dioxide 29 Anion Gap 7 L BUN 9 Creatinine 0.7 D Random Glucose 92 Calcium 7.4 L Phosphorus 2.7 D Magnesium 2.1 Active Medications Generic Name Dose Route Start Last Admin Trade Name Freq PRN Reason Stop Dose Admin Acetaminophen 650 mg 09/18/16 14:32 Tylenol - PO Q4H PRN FEVER OR PAIN Albuterol/Ipratropium 1 amp 09/18/16 14:30 Duoneb - NEB Q4H PRN SHORTNESS OF BREATH Aripiprazole 20 mg 09/18/16 22:00 09/18/16 21:45 Abilify PO 20 mg HS [facility] Administration Ascorbic Acid 500 mg 09/19/16 10:00 09/19/16 09:51 Vitamin C - PO 500 mg DAILY [facility] Administration Atorvastatin Calcium 10 mg 09/18/16 22:00 09/18/16 21:44 Lipitor - PO 10 mg HS [facility] Administration Buspirone HCl 15 mg 09/18/16 22:00 09/19/16 15:02 Buspar - PO 15 mg TID [facility] Administration Calcium Carbonate/Cholecalciferol 1 tab 09/19/16 10:00 09/19/16 09:50 Os-Christian 500+D - PO 1 tab DAILY [facility] Administration Chlorhexidine Gluconate 1 applic 09/18/16 22:00 09/18/16 21:45 Hibiclens For Decolonization - TP 1 applic HS [facility] Administration Heparin Sodium (Porcine) 5,000 unit 09/18/16 22:00 09/19/16 15:03 Heparin - SQ 5,000 unit TID [facility] Administration Levothyroxine Sodium 75 mcg 09/19/16 07:00 09/19/16 06:07 Synthroid - PO 75 mcg ACBK [facility] Administration Loratadine 10 mg 09/19/16 10:00 09/19/16 09:46 Claritin - PO 10 mg DAILY [facility] Administration Montelukast Sodium 10 mg 09/18/16 22:00 09/18/16 21:44 Singulair - PO 10 mg HS [facility] Administration Mupirocin 1 applic 09/18/16 22:00 09/19/16 09:53 Bactroban Ointment (For Decolonization) - NS 09/23/16 21:59 1 applic BID [facility] Administration Ondansetron HCl 4 mg 09/18/16 14:32 Zofran Injection IVPB Q4H PRN NAUSEA Pantoprazole Sodium 20 mg 09/18/16 22:00 09/19/16 09:51 Protonix - PO 20 mg BID [facility] Administration Piperacillin Sod/Tazobactam Sod 3.375 gm 09/18/16 16:00 09/19/16 09:51 Zosyn 3.375gm Ivpb (Pre-Docked) IVPB 3.375 gm Q8H-IV [facility] Administration Sodium Chloride 1 gm 09/18/16 22:00 09/19/16 15:03 Sodium Chloride Tablet - PO 1 gm TID [facility] Administration Valproate Sodium 1,250 mg 09/18/16 22:00 09/18/16 21:44 Depakene - PO 1,250 mg HS [facility] Administration Assessment: 50 year old female with pmhx hypothyroidism, hyperlipidemia, hyponatremia, Down syndrome, and recurrent pneumonia likely from aspiration admitted with rigors and fever, found to be septic. Plan: 1. Sepsis secondary to healthcare-associated pneumonia, probable aspiration - Improved - Lactic acid wnl - Will stop fluids, worsening right pleural effusion - Continue Zosyn per ID - Duonebs PRN 2. Lactic acidemia - Secondary to sepsis; now resolved 3. Hyponatremia - Resolved - Continue sodium chloride tabs 4. Hypothyroidism - Continue Synthroid - Check TSH 5. Hyperlipidemia - Continue Mevacor 6. Down syndrome with severe mental retardation - Continue [facility] BuSpar Visit type - Emergency Visit Emergency Visit: Yes ED Registration Date: 09/18/16 Care time: The patient presented to the Emergency Department on the above date and was hospitalized for further evaluation of their emergent condition. - New Patient This patient is new to me today: Yes Date on this admission: 09/19/16 - Critical Care Critical Care patient: No
[2016-09-19] MEDS ORDERED: methylPREDNISolone NA SUCC 125 MG/2 ML VIAL IVPB ONE (18:47)
[2016-09-19] MEDS ORDERED: ALBUTEROL SO4 2.5/IPRATROPIUM 0.5 INH SOL 3 ML VIAL.NEB. NEB SCH (19:00)
[2016-09-19] MEDS: ARIPiprazole 10 MG TABLET PO SCH (21:20)
[2016-09-19] MEDS: VALPROATE SODIUM 250 MG/5 ML UNIT DOSE CUP PO SCH (21:21)
[2016-09-19] MEDS: ATORVASTATIN CA 10 MG TABLET (FP) PO SCH (21:22)
[2016-09-19] MEDS: CHLORHEXIDINE GLUCONATE 4% CLEANSER FOR DECOLONIZATION TP SCH (21:22)
[2016-09-19] MEDS: MONTELUKAST NA 10 MG TABLET PO SCH (21:23)
[2016-09-19] MEDS ORDERED: ONDANSETRON 4 MG/2 ML VIAL IVPB PRN (23:10)
[2016-09-20] MEDS: PIPERACILLIN/TAZOB 3.375 GM/50 ML PRE-DOCKED IVPB SCH ×3 (01:54→17:28)
[2016-09-20] MEDS: busPIRone HCL 5 MG TABLET PO SCH ×3 (05:36→23:02)
[2016-09-20] MEDS: SODIUM CHLORIDE 1 GM TABLET PO SCH ×3 (05:37→23:04)
[2016-09-20] MEDS: HEPARIN NA (PORCINE) 5,000 UNITS/ML 1ML VIAL SQ SCH ×2 (05:37→15:51)
[2016-09-20 05:47] LABS: BASOPHIL 0.2 % (0-2.0); MCH 29.9 pg (25.7-33.7); MCHC 31.7 g/dl (32.0-36.0); MEAN CELL VOLUME 94.2 fl (80-96); MEAN PLT VOLUME 8.5 fl (7.5-11.1); NEUTROPHILS 93.3 % (42.8-82.8); PLATELET COUNT 401 K/MM3 (134-434); RDW 21.5 % (11.6-15.6); WHITE BLOOD COUNT 17.8 K/mm3 (4.0-10.0)
[2016-09-20 06:10] LABS: CALCIUM 8.7 mg/dL (8.5-10.1); CREATININE 0.8 mg/dL (0.55-1.02); PHOSPHOROUS 3.2 mg/dL (2.5-4.9)
[2016-09-20 06:19] LABS: THYROID STIMULATING HORMONE 0.39 uIU/ml (0.358-3.74)
[2016-09-20] MEDS: LEVOTHYROXINE NA 75 MCG TABLET (FP) PO SCH (06:21)
[2016-09-20] MEDS ORDERED: MUPIROCIN 2% TOPICAL OINTMENT FOR DECOLONIZATION NS SCH (10:00)
[2016-09-20] MEDS ORDERED: PATIENT'S OWN MEDICATION (NON-FORMULARY) (Alendronate Sodium [Binosto] 70 MG) PO SCH (10:00)
[2016-09-20] MEDS: PANTOPRAZOLE 20 MG TABLET (FP) PO SCH ×2 (10:07→23:03)
[2016-09-20] MEDS: ASCORBIC ACID 500 MG TABLET (FP) PO SCH (10:08)
[2016-09-20] MEDS: CALCIUM 500MG/VIT-D 200 UNITS COMBO TABLET (FP) PO SCH (10:08)
[2016-09-20] MEDS: LORATADINE 10 MG TABLET PO SCH (10:08)
[2016-09-20] MEDS: AMOX TR/POT CLAV 875MG/125MG TABLETS (FP) PO SCH ×2 (11:30→18:00)
--- NOTE | 2016-09-20 11:36 | PN ---
Teaching Attending Note Name of Resident: Juan Valerio ATTENDING PHYSICIAN STATEMENT I saw and evaluated the patient. I reviewed the resident's note and discussed the case with the resident. I agree with the resident's findings and plan as documented. SUBJECTIVE: Patient seen and examined in the ICU. Awake and responsive. Some dry cough is noted. CXR: poor quality / bibasilar effusions Intake & Output 09/17/16 09/18/16 09/19/16 09/20/16 23:59 23:59 23:59 23:59 Intake Total 3300 2500 Output Total 650 Balance 2650 2500 Weight 109 lb 12.643 oz 107 lb 3 oz Last Vital Signs Temp Pulse Resp BP Pulse Ox 97.4 F L 108 H 22 150/88 92 L 09/20/16 06:00 09/20/16 10:40 09/20/16 10:00 09/20/16 10:00 09/20/16 10:40 Active Medications Acetaminophen (Tylenol -) 650 mg PO Q4H PRN PRN Reason: FEVER OR PAIN Albuterol/Ipratropium (Duoneb -) 1 amp NEB Q4H PRN PRN Reason: SHORTNESS OF BREATH Amoxicillin/Clavulanate Potassium (Augmentin - 875mg Tablet) 1 tab PO BIDWM [facility] Aripiprazole (Abilify) 20 mg PO HS [facility] Ascorbic Acid (Vitamin C -) 500 mg PO DAILY [facility] Last Admin: 09/20/16 10:08 Dose: 500 mg Atorvastatin Calcium (Lipitor -) 10 mg PO HS [facility] Buspirone HCl (Buspar -) 15 mg PO TID [facility] Last Admin: 09/20/16 05:36 Dose: 15 mg Calcium Carbonate/Cholecalciferol (Os-Christian 500+D -) 1 tab PO DAILY [facility] Last Admin: 09/20/16 10:08 Dose: 1 tab Chlorhexidine Gluconate (Hibiclens For Decolonization -) 1 applic TP HS [facility] Heparin Sodium (Porcine) (Heparin -) 5,000 unit SQ TID [facility] Last Admin: 09/20/16 05:37 Dose: 5,000 unit Levothyroxine Sodium (Synthroid -) 75 mcg PO ACBK [facility] Last Admin: 09/20/16 06:21 Dose: 75 mcg Loratadine (Claritin -) 10 mg PO DAILY [facility] Last Admin: 09/20/16 10:08 Dose: 10 mg Montelukast Sodium (Singulair -) 10 mg PO [facility] Mupirocin (Bactroban Ointment (For Decolonization) -) 1 applic NS BID [facility] Stop: 09/23/16 21:59 Last Admin: 09/20/16 10:08 Dose: 1 applic Ondansetron HCl (Zofran Injection) 4 mg IVPB Q4H PRN PRN Reason: NAUSEA Pantoprazole Sodium (Protonix -) 20 mg PO BID [facility] Last Admin: 09/20/16 10:07 Dose: 20 mg Sodium Chloride (Sodium Chloride Tablet -) 1 gm PO TID [facility] Last Admin: 09/20/16 05:37 Dose: 1 gm Valproate Sodium (Depakene -) 1,250 mg PO [facility] Constitutional: Yes: NAD Eyes: Yes: Conjunctiva Clear, EOM Intact HENT: Yes: Atraumatic, Normocephalic Neck: Yes: Supple, Trachea Midline Cardiovascular: Yes: Regular Rate and Rhythm Respiratory: Yes: Bibasilar rhonchi ...Clubbing: No Gastrointestinal: Yes: Normal Bowel Sounds, Soft. No: Tenderness Peripheral Pulses WNL: No Laboratory Results - last 24 hr 09/20/16 09/20/16 05:00 05:00 WBC 17.8 H RBC 3.82 Hgb 11.4 D Hct 36.0 MCV 94.2 MCHC 31.7 L RDW 21.5 H Plt Count 401 D MPV 8.5 Neutrophils % 93.3 H Lymphocytes % 5.5 L D Monocytes % 1.0 L Eosinophils % 0.0 D Basophils % 0.2 Sodium 140 Potassium 5.0 Chloride 102 Carbon Dioxide 31 Anion Gap 7 L BUN 9 Creatinine 0.8 Random Glucose 151 H D Calcium 8.7 Phosphorus 3.2 Magnesium 2.0 TSH 0.39 D Problem List - Problems (1) Pneumonia Code(s): J18.9 - PNEUMONIA, UNSPECIFIED ORGANISM Qualifiers: Pneumonia type: due to unspecified organism Laterality: right Lung location: upper lobe of lung Qualified Code(s): J18.9 - Pneumonia, unspecified organism (2) Severe sepsis Code(s): A41.9 - SEPSIS, UNSPECIFIED ORGANISM R65.20 - SEVERE SEPSIS WITHOUT SEPTIC SHOCK (3) Lactic acidosis Code(s): E87.2 - ACIDOSIS (4) Hyponatremia Code(s): E87.1 - HYPO-OSMOLALITY AND HYPONATREMIA (5) Hypothyroidism Code(s): E03.9 - HYPOTHYROIDISM, UNSPECIFIED Qualifiers: Hypothyroidism type: acquired Qualified Code(s): E03.9 - Hypothyroidism, unspecified (6) Mental retardation Code(s): F79 - UNSPECIFIED INTELLECTUAL DISABILITIES Assessment/Plan Recurrent Pneumonia (?) Aspiration Severe Sepsis Lactic Acidosis Mental Retardation Hypothyroidism - ABX per ID - Monitor off IVF - monitor urine output, creatinine - aspiration precautions - Daily assessment for Lasix need - PO as tolerated - DVT prophylaxis - Floor Dr Joshua CCTime 35"
[2016-09-20] MEDS: ALBUTEROL SO4 2.5/IPRATROPIUM 0.5 INH SOL 3 ML VIAL.NEB. NEB PRN (11:37)
--- NOTE | 2016-09-20 11:47 | PN ---
Physical Exam: SUBJECTIVE: Patient seen and examined in the ICU. Non verbal at baseline, arousable with touch. Aid at bedside, states pt did not sleep well overnight. She desaturated last night and fluids were stopped. Currently breathing well and comfortable. OBJECTIVE: Vital Signs Period Temp Pulse Resp BP Sys/Chinchilla Pulse Ox Last 24 Hr 97.4 F-98.8 F 52-120 16-24 109-150/54-95 92-96 GENERAL: Comfortable, NAD HEAD: Normal with no signs of trauma. HEENT: protruding tongue, epicanthal folds Pulm: diminished based R>L CV: s1 s2 rrr no mrg Abd: s nt nd + bs Ext: warm, no edema Laboratory Results - last 24 hr 09/20/16 09/20/16 05:00 05:00 WBC 17.8 H RBC 3.82 Hgb 11.4 D Hct 36.0 MCV 94.2 MCHC 31.7 L RDW 21.5 H Plt Count 401 D MPV 8.5 Neutrophils % 93.3 H Lymphocytes % 5.5 L D Monocytes % 1.0 L Eosinophils % 0.0 D Basophils % 0.2 Sodium 140 Potassium 5.0 Chloride 102 Carbon Dioxide 31 Anion Gap 7 L BUN 9 Creatinine 0.8 Random Glucose 151 H D Calcium 8.7 Phosphorus 3.2 Magnesium 2.0 TSH 0.39 D Active Medications Generic Name Dose Route Start Last Admin Trade Name Freq PRN Reason Stop Dose Admin Acetaminophen 650 mg 09/19/16 23:10 Tylenol - PO Q4H PRN FEVER OR PAIN Albuterol/Ipratropium 1 amp 09/19/16 23:10 09/20/16 11:37 Duoneb - NEB 1 amp Q4H PRN Administration SHORTNESS OF BREATH Amoxicillin/Clavulanate Potassium 1 tab 09/20/16 17:30 Augmentin - 875mg Tablet PO BIDWM [facility] Aripiprazole 20 mg 09/20/16 22:00 Abilify PO HS [facility] Ascorbic Acid 500 mg 09/20/16 10:00 09/20/16 10:08 Vitamin C - PO 500 mg DAILY [facility] Administration Atorvastatin Calcium 10 mg 09/20/16 22:00 Lipitor - PO HS [facility] Buspirone HCl 15 mg 09/20/16 06:00 09/20/16 05:36 Buspar - PO 15 mg TID [facility] Administration Calcium Carbonate/Cholecalciferol 1 tab 09/20/16 10:00 09/20/16 10:08 Os-Christian 500+D - PO 1 tab DAILY [facility] Administration Chlorhexidine Gluconate 1 applic 09/20/16 22:00 Hibiclens For Decolonization - TP HS [facility] Heparin Sodium (Porcine) 5,000 unit 09/20/16 06:00 09/20/16 05:37 Heparin - SQ 5,000 unit TID [facility] Administration Levothyroxine Sodium 75 mcg 09/20/16 07:00 09/20/16 06:21 Synthroid - PO 75 mcg ACBK [facility] Administration Loratadine 10 mg 09/20/16 10:00 09/20/16 10:08 Claritin - PO 10 mg DAILY [facility] Administration Montelukast Sodium 10 mg 09/20/16 22:00 Singulair - PO [facility] Mupirocin 1 applic 09/20/16 10:00 09/20/16 10:08 Bactroban Ointment (For Decolonization) - NS 09/23/16 21:59 1 applic BID [facility] Administration Ondansetron HCl 4 mg 09/19/16 23:10 Zofran Injection IVPB Q4H PRN NAUSEA Pantoprazole Sodium 20 mg 09/20/16 10:00 09/20/16 10:07 Protonix - PO 20 mg BID [facility] Administration Sodium Chloride 1 gm 09/20/16 06:00 09/20/16 05:37 Sodium Chloride Tablet - PO 1 gm TID [facility] Administration Valproate Sodium 1,250 mg 09/20/16 22:00 Depakene - PO [facility] ASSESSMENT/PLAN: 50 year old female with pmhx hypothyroidism, hyperlipidemia, hyponatremia, Down syndrome, and recurrent pneumonia likely from aspiration admitted with rigors and fever, found to be septic. Plan: NEURO: -at baseline. Pulmonary: - Duonebs PRN - Lactic acid wnl - Will stop fluids, worsening right pleural effusion ID: Sepsis secondary to healthcare-associated pneumonia, probable aspiration - Continue Zosyn per ID F/E/N -fluids held due to TACO -lytes WNL - mechanical soft diet. DISPO: to be transferred to [place] Visit type - Emergency Visit Emergency Visit: Yes ED Registration Date: 09/18/16 Care time: The patient presented to the Emergency Department on the above date and was hospitalized for further evaluation of their emergent condition. - New Patient This patient is new to me today: No - Critical Care Critical Care patient: Yes Total Critical Care Time (in minutes): 33 Critical Care Statement: The care of this patient involved high complexity decision making to prevent further life threatening deterioration of the patient 's condition and/or to evalute & treat vital organ system(s) failure or risk of failure.
--- NOTE | 2016-09-20 14:27 | PN ---
Progress Note, Physician History of Present Illness: patient keeps on pulling iv and not able to take abx iv because of that stable no distress calm - Current Medication List Current Medications: Active Medications Acetaminophen (Tylenol -) 650 mg PO Q4H PRN PRN Reason: FEVER OR PAIN Albuterol/Ipratropium (Duoneb -) 1 amp NEB Q4H PRN PRN Reason: SHORTNESS OF BREATH Last Admin: 09/20/16 11:37 Dose: 1 amp Amoxicillin/Clavulanate Potassium (Augmentin - 875mg Tablet) 1 tab PO BIDWM [facility] Aripiprazole (Abilify) 20 mg PO HS [facility] Ascorbic Acid (Vitamin C -) 500 mg PO DAILY [facility] Last Admin: 09/20/16 10:08 Dose: 500 mg Atorvastatin Calcium (Lipitor -) 10 mg PO HS [facility] Buspirone HCl (Buspar -) 15 mg PO TID [facility] Last Admin: 09/20/16 05:36 Dose: 15 mg Calcium Carbonate/Cholecalciferol (Os-Christian 500+D -) 1 tab PO DAILY [facility] Last Admin: 09/20/16 10:08 Dose: 1 tab Chlorhexidine Gluconate (Hibiclens For Decolonization -) 1 applic TP HS [facility] Heparin Sodium (Porcine) (Heparin -) 5,000 unit SQ TID [facility] Last Admin: 09/20/16 05:37 Dose: 5,000 unit Levothyroxine Sodium (Synthroid -) 75 mcg PO ACBK [facility] Last Admin: 09/20/16 06:21 Dose: 75 mcg Loratadine (Claritin -) 10 mg PO DAILY [facility] Last Admin: 09/20/16 10:08 Dose: 10 mg Montelukast Sodium (Singulair -) 10 mg PO HS [facility] Mupirocin (Bactroban Ointment (For Decolonization) -) 1 applic NS BID [facility] Stop: 09/23/16 21:59 Last Admin: 09/20/16 10:08 Dose: 1 applic Ondansetron HCl (Zofran Injection) 4 mg IVPB Q4H PRN PRN Reason: NAUSEA Pantoprazole Sodium (Protonix -) 20 mg PO BID [facility] Last Admin: 09/20/16 10:07 Dose: 20 mg Sodium Chloride (Sodium Chloride Tablet -) 1 gm PO TID [facility] Last Admin: 09/20/16 05:37 Dose: 1 gm Valproate Sodium (Depakene -) 1,250 mg PO HS [facility] - Objective Vital Signs: Vital Signs Temperature 97.4 F L 09/20/16 06:00 Pulse Rate 108 H 09/20/16 10:40 Respiratory Rate 22 09/20/16 10:00 Blood Pressure 150/88 09/20/16 10:00 O2 Sat by Pulse Oximetry (%) 92 L 09/20/16 10:40 Constitutional: Yes: No Distress, Calm Neck: Yes: Supple Cardiovascular: Yes: Regular Rate and Rhythm Respiratory: Yes: Regular, Poor Air Entry Musculoskeletal: Yes: WNL Extremities: Yes: WNL Integumentary: Yes: WNL Neurological: Yes: Alert Psychiatric: Yes: Alert, Other Labs: CBC, BMP 09/20/16 05:00 09/20/16 05:00 INR, PTT INR 1.20 (0.82-1.09) 09/18/16 08:49 - ....Imaging Chest X-ray: Report Reviewed, Image Reviewed Assessment/Plan Problem List - Problems (1) Pneumonia Code(s): J18.9 - PNEUMONIA, UNSPECIFIED ORGANISM Qualifiers: Pneumonia type: due to unspecified organism Laterality: right Lung location: upper lobe of lung Qualified Code(s): J18.9 - Pneumonia, unspecified organism (2) Severe sepsis Code(s): A41.9 - SEPSIS, UNSPECIFIED ORGANISM R65.20 - SEVERE SEPSIS WITHOUT SEPTIC SHOCK (3) Lactic acidosis Code(s): E87.2 - ACIDOSIS (4) Hyponatremia Code(s): E87.1 - HYPO-OSMOLALITY AND HYPONATREMIA (5) Hypothyroidism Code(s): E03.9 - HYPOTHYROIDISM, UNSPECIFIED Qualifiers: Hypothyroidism type: acquired Qualified Code(s): E03.9 - Hypothyroidism, unspecified (6) Mental retardation Code(s): F79 - UNSPECIFIED INTELLECTUAL DISABILITIES plan continue abx switched to oral wbc trending down but still on higher side cx no growth so far aspiration precautions if wbc does not come down will add clinda to the regimen cc time 40 min
[2016-09-20] MEDS ORDERED: PT OWN MED DRAWER 7, Y5N ONE ×3 (15:50→20:07)
--- NOTE | 2016-09-20 16:13 | PN ---
Physical Exam: SUBJECTIVE: Patient seen and examined. She ate lunch per aid. She appears calm, hand motions she did eat, pointed to mouth OBJECTIVE: Vital Signs Period Temp Pulse Resp BP Sys/Chinchilal Pulse Ox Last 24 Hr 97.4 F-98.2 F 52-113 18-24 126-150/78-94 92-96 PE Neuro: awake, alert, cn 2-12intact, NAD HEENT: protruding tongue, epicanthal folds Pulm: diminished based R>L CV: s1 s2 rrr no mrg Abd: s nt nd + bs Ext: warm, no edema Laboratory Results - last 24 hr 09/20/16 09/20/16 05:00 05:00 WBC 17.8 H RBC 3.82 Hgb 11.4 D Hct 36.0 MCV 94.2 MCHC 31.7 L RDW 21.5 H Plt Count 401 D MPV 8.5 Neutrophils % 93.3 H Lymphocytes % 5.5 L D Monocytes % 1.0 L Eosinophils % 0.0 D Basophils % 0.2 Sodium 140 Potassium 5.0 Chloride 102 Carbon Dioxide 31 Anion Gap 7 L BUN 9 Creatinine 0.8 Random Glucose 151 H D Calcium 8.7 Phosphorus 3.2 Magnesium 2.0 TSH 0.39 D Active Medications Generic Name Dose Route Start Last Admin Trade Name Freq PRN Reason Stop Dose Admin Acetaminophen 650 mg 09/19/16 23:10 Tylenol - PO Q4H PRN FEVER OR PAIN Albuterol/Ipratropium 1 amp 09/19/16 23:10 09/20/16 11:37 Duoneb - NEB 1 amp Q4H PRN Administration SHORTNESS OF BREATH Amoxicillin/Clavulanate Potassium 1 tab 09/20/16 17:30 Augmentin - 875mg Tablet PO BIDWM [facility] Aripiprazole 20 mg 09/20/16 22:00 Abilify PO HS [facility] Ascorbic Acid 500 mg 09/20/16 10:00 09/20/16 10:08 Vitamin C - PO 500 mg DAILY [facility] Administration Atorvastatin Calcium 10 mg 09/20/16 22:00 Lipitor - PO HS [facility] Buspirone HCl 15 mg 09/20/16 06:00 09/20/16 15:51 Buspar - PO 15 mg TID [facility] Administration Calcium Carbonate/Cholecalciferol 1 tab 09/20/16 10:00 09/20/16 10:08 Os-Christian 500+D - PO 1 tab DAILY [facility] Administration Chlorhexidine Gluconate 1 applic 09/20/16 22:00 Hibiclens For Decolonization - TP HS [facility] Heparin Sodium (Porcine) 5,000 unit 09/20/16 06:00 09/20/16 15:51 Heparin - SQ 5,000 unit TID [facility] Administration Levothyroxine Sodium 75 mcg 09/20/16 07:00 09/20/16 06:21 Synthroid - PO 75 mcg ACBK [facility] Administration Loratadine 10 mg 09/20/16 10:00 09/20/16 10:08 Claritin - PO 10 mg DAILY [facility] Administration Montelukast Sodium 10 mg 09/20/16 22:00 Singulair - PO HS [facility] Mupirocin 1 applic 09/20/16 10:00 09/20/16 10:08 Bactroban Ointment (For Decolonization) - NS 09/23/16 21:59 1 applic BID [facility] Administration Ondansetron HCl 4 mg 09/19/16 23:10 Zofran Injection IVPB Q4H PRN NAUSEA Pantoprazole Sodium 20 mg 09/20/16 10:00 09/20/16 10:07 Protonix - PO 20 mg BID [facility] Administration Sodium Chloride 1 gm 09/20/16 06:00 09/20/16 15:51 Sodium Chloride Tablet - PO 1 gm TID [facility] Administration Valproate Sodium 1,250 mg 09/20/16 22:00 Depakene - PO [facility] Assessment: 50 year old female with pmhx hypothyroidism, hyperlipidemia, hyponatremia, Down syndrome, and recurrent pneumonia likely from aspiration admitted with rigors and fever, found to be septic. Plan: 1. Sepsis secondary to healthcare-associated pneumonia, probable aspiration - Leukocytosis mild improvement - Pt continues to pull out IV - Zosyn stopped - Start [id number] BID - Add clinda if worsens per ID - CXR in am - Duonebs prn - Appreciate ID consult 2. Lactic acidemia - Secondary to sepsis; now resolved 3. Hyponatremia - Resolved - Continue sodium chloride tabs 4. Hypothyroidism - Continue Synthroid - TSH wnl 5. Hyperlipidemia - Continue Mevacor 6. Down syndrome with severe mental retardation - Continue Jimmy Phillips BuSpar Visit type - Emergency Visit Emergency Visit: Yes ED Registration Date: 09/18/16 Care time: The patient presented to the Emergency Department on the above date and was hospitalized for further evaluation of their emergent condition. - New Patient This patient is new to me today: No - Critical Care Critical Care patient: No
[2016-09-20] MEDS ORDERED: CHLORHEXIDINE GLUCONATE 4% CLEANSER FOR DECOLONIZATION TP SCH (22:00)
[2016-09-20] MEDS: ARIPiprazole 10 MG TABLET PO SCH (23:02)
[2016-09-20] MEDS: ATORVASTATIN CA 10 MG TABLET (FP) PO SCH (23:03)
[2016-09-20] MEDS: MONTELUKAST NA 10 MG TABLET PO SCH (23:04)
[2016-09-20] MEDS: VALPROATE SODIUM 250 MG/5 ML UNIT DOSE CUP PO SCH (23:05)
[2016-09-21] MEDS: busPIRone HCL 5 MG TABLET PO SCH ×3 (06:24→21:45)
[2016-09-21] MEDS: SODIUM CHLORIDE 1 GM TABLET PO SCH ×3 (06:24→21:48)
[2016-09-21] MEDS: LEVOTHYROXINE NA 75 MCG TABLET (FP) PO SCH (06:25)
[2016-09-21 07:57] LABS: MCH 31.1 pg (25.7-33.7); MEAN CELL VOLUME 94.1 fl (80-96); MEAN PLT VOLUME 8.3 fl (7.5-11.1); PLATELET COUNT 363 K/MM3 (134-434); RDW 21.5 % (11.6-15.6); WHITE BLOOD COUNT 23.6 K/mm3 (4.0-10.0)
[2016-09-21] MEDS ORDERED: PT OWN MED DRAWER 7, Y5N ONE ×2 (09:51→18:08)
[2016-09-21] MEDS: ENOXAPARIN NA (PORCINE) 40 MG/0.4 ML DISP.SYRIN SQ SCH (09:57)
[2016-09-21] MEDS: PANTOPRAZOLE 20 MG TABLET (FP) PO SCH ×2 (09:58→21:48)
[2016-09-21] MEDS: LORATADINE 10 MG TABLET PO SCH (09:58)
[2016-09-21] MEDS: AMOX TR/POT CLAV 875MG/125MG TABLETS (FP) PO SCH (09:58)
[2016-09-21] MEDS: ASCORBIC ACID 500 MG TABLET (FP) PO SCH (09:58)
[2016-09-21] MEDS: ACETAMINOPHEN 325 MG TABLET (FP) PO PRN ×2 (09:58→21:49)
[2016-09-21] MEDS: CALCIUM 500MG/VIT-D 200 UNITS COMBO TABLET (FP) PO SCH (09:58)
[2016-09-21] MEDS: ALBUTEROL SO4 2.5/IPRATROPIUM 0.5 INH SOL 3 ML VIAL.NEB. NEB PRN (10:15)
[2016-09-21 10:49] LABS: CALCIUM 8.3 mg/dL (8.5-10.1); CREATININE 0.8 mg/dL (0.55-1.02)
[2016-09-21 11:35] LABS: METAMYELOCYTE 1 % (0-2); PLATELET ESTIMATE NC (NORMAL)
[2016-09-21 11:36] LABS: ANISOCYTOSIS 1+; POLYCHROMASIA 1+
--- NOTE | 2016-09-21 12:19 | PN ---
Physical Exam: SUBJECTIVE: Patient seen and examined. Appears comfortable. No requiring supplemental o2. OBJECTIVE: Vital Signs Period Temp Pulse Resp BP Sys/Chinchilla Pulse Ox Last 24 Hr 97.2 F-98.9 F 88-134 16-20 122-147/70-88 95-96 PE Neuro: awake, alert, cn 2-12intact, NAD HEENT: protruding tongue, epicanthal folds Pulm: diminished based R>L CV: s1 s2 rrr no mrg Abd: s nt nd + bs Ext: warm, no edema Laboratory Results - last 24 hr 09/21/16 09/21/16 06:35 06:35 WBC 23.6 H D RBC 3.02 L D Hgb 9.4 L D Hct 28.4 L D MCV 94.1 MCHC 33.0 RDW 21.5 H Plt Count 363 MPV 8.3 Neutrophils % 65.0 D Lymphocytes % 11.0 D Monocytes % 9.0 D Eosinophils % 1.0 D Band Neutrophils 10.0 D Metamyelocytes 1 Differential Comment A Reactive Lymphocytes 3 Platelet Estimate Nc Platelet Comment No clotting detected Polychromasia 1+ Anisocytosis 1+ Macrocytosis 1+ Morphology Comment Slide scanned Sodium 134 L Potassium 5.5 H Chloride 98 Carbon Dioxide 30 Anion Gap 6 L BUN 15 D Creatinine 0.8 Random Glucose 108 H D Calcium 8.3 L Active Medications Generic Name Dose Route Start Last Admin Trade Name Freq PRN Reason Stop Dose Admin Acetaminophen 650 mg 09/19/16 23:10 09/21/16 09:58 Tylenol - PO 650 mg Q4H PRN Administration FEVER OR PAIN Albuterol/Ipratropium 1 amp 09/19/16 23:10 09/20/16 11:37 Duoneb - NEB 1 amp Q4H PRN Administration SHORTNESS OF BREATH Amoxicillin/Clavulanate Potassium 1 tab 09/20/16 17:30 09/21/16 09:58 Augmentin - 875mg Tablet PO 1 tab BIDWM [facility] Administration Aripiprazole 20 mg 09/20/16 22:00 09/20/16 23:02 Abilify PO 20 mg HS [facility] Administration Ascorbic Acid 500 mg 09/20/16 10:00 09/21/16 09:58 Vitamin C - PO 500 mg DAILY [facility] Administration Atorvastatin Calcium 10 mg 09/20/16 22:00 09/20/16 23:03 Lipitor - PO 10 mg HS [facility] Administration Buspirone HCl 15 mg 09/20/16 06:00 09/21/16 06:24 Buspar - PO 15 mg TID [facility] Administration Calcium Carbonate/Cholecalciferol 1 tab 09/20/16 10:00 09/21/16 09:58 Os-Christian 500+D - PO 1 tab DAILY [facility] Administration Clindamycin HCl 600 mg 09/21/16 12:15 Cleocin - PO Q8H [facility] Enoxaparin Sodium 40 mg 09/21/16 10:00 09/21/16 09:57 Lovenox - SQ 40 mg DAILY [facility] Administration Levothyroxine Sodium 75 mcg 09/20/16 07:00 09/21/16 06:25 Synthroid - PO 75 mcg ACBK [facility] Administration Loratadine 10 mg 09/20/16 10:00 09/21/16 09:58 Claritin - PO 10 mg DAILY [facility] Administration Montelukast Sodium 10 mg 09/20/16 22:00 09/20/16 23:04 Singulair - PO 10 mg HS [facility] Administration Ondansetron HCl 4 mg 09/19/16 23:10 Zofran Injection IVPB Q4H PRN NAUSEA Pantoprazole Sodium 20 mg 09/20/16 10:00 09/21/16 09:58 Protonix - PO 20 mg BID [facility] Administration Sodium Chloride 1 gm 09/20/16 06:00 09/21/16 06:24 Sodium Chloride Tablet - PO 1 gm TID [facility] Administration Valproate Sodium 1,250 mg 09/20/16 22:00 09/20/16 23:05 Depakene - PO 1,250 mg HS [facility] Administration Assessment: 50 year old female with pmhx hypothyroidism, hyperlipidemia, hyponatremia, Down syndrome, and recurrent pneumonia likely from aspiration admitted with rigors and fever, found to be septic. Plan: 1. Sepsis secondary to healthcare-associated pneumonia, probable aspiration - Worsening leukocytosis - Start clinda 600mg q8 - Continue Augmentin - D/w Surgical PA, will attempt to place central line and place restraints - Stat cxr - ID aware, will see pt 2. Lactic acidemia - Secondary to sepsis; now resolved 3. Electrolytes Hyponatremia - Will repeat BMP - Continue sodium chloride tabs Hyperkalemia 4. Hypothyroidism - Continue Synthroid 5. Hyperlipidemia - Continue Mevacor 6. Down syndrome with severe mental retardation - Continue Jimmy Phillips BuSpar Visit type - Emergency Visit Emergency Visit: Yes ED Registration Date: 09/18/16 Care time: The patient presented to the Emergency Department on the above date and was hospitalized for further evaluation of their emergent condition. - New Patient This patient is new to me today: No - Critical Care Critical Care patient: No
--- NOTE | 2016-09-21 12:53 | PN ---
Progress Note (short form) - Note Progress Note: PULMONARY CHART REVIEWED HEALTH AIDE IN ATTENDANCE LOW GRADE TEMP PALE/CHRONICALLY ILL ANICTERIC SCATTERED RIGHT RHONCHI S1S2 BS+ NO EDEMA LABS/MEDS/NOTES/IMAGING REVIEWED Recurrent Pneumonia (?) Aspiration Severe Sepsis Lactic Acidosis Mental Retardation Hypothyroidism - ABX per ID - Monitor off IVF - monitor urine output, creatinine - aspiration precautions - Daily assessment for Lasix need - PO as tolerated - DVT prophylaxis WILL FOLLOW THANK YOU Anselmo MARTINEZ MD
[2016-09-21] MEDS ORDERED: PIPERACILLIN/TAZOB 3.375 GM 50 ML IVPB ONE (13:00)
[2016-09-21 13:46] LABS: CALCIUM 8.4 mg/dL (8.5-10.1); CREATININE 0.9 mg/dL (0.55-1.02)
[2016-09-21] MEDS ORDERED: CLINDAMYCIN HCL 150 MG CAPSULE (FP) PO SCH (14:00)
--- NOTE | 2016-09-21 14:29 | PN ---
Progress Note, Physician History of Present Illness: patient with low grade temp increase in wbc - Current Medication List Current Medications: Active Medications Acetaminophen (Tylenol -) 650 mg PO Q4H PRN PRN Reason: FEVER OR PAIN Last Admin: 09/21/16 09:58 Dose: 650 mg Albuterol/Ipratropium (Duoneb -) 1 amp NEB Q4H PRN PRN Reason: SHORTNESS OF BREATH Last Admin: 09/21/16 10:15 Dose: 1 amp Aripiprazole (Abilify) 20 mg PO [facility] Last Admin: 09/20/16 23:02 Dose: 20 mg Ascorbic Acid (Vitamin C -) 500 mg PO DAILY [facility] Last Admin: 09/21/16 09:58 Dose: 500 mg Atorvastatin Calcium (Lipitor -) 10 mg PO [facility] Last Admin: 09/20/16 23:03 Dose: 10 mg Buspirone HCl (Buspar -) 15 mg PO TID [facility] Last Admin: 09/21/16 13:41 Dose: 15 mg Calcium Carbonate/Cholecalciferol (Os-Christian 500+D -) 1 tab PO DAILY [facility] Last Admin: 09/21/16 09:58 Dose: 1 tab Enoxaparin Sodium (Lovenox -) 40 mg SQ DAILY [facility] Last Admin: 09/21/16 09:57 Dose: 40 mg Piperacillin Sod/Tazobactam (Sod 3.375 gm/ Dextrose) 50 mls @ 100 mls/hr IVPB Q8H-IV [facility] Levothyroxine Sodium (Synthroid -) 75 mcg PO ACBK [facility] Last Admin: 09/21/16 06:25 Dose: 75 mcg Loratadine (Claritin -) 10 mg PO DAILY [facility] Last Admin: 09/21/16 09:58 Dose: 10 mg Montelukast Sodium (Singulair -) 10 mg PO HS [facility] Last Admin: 09/20/16 23:04 Dose: 10 mg Ondansetron HCl (Zofran Injection) 4 mg IVPB Q4H PRN PRN Reason: NAUSEA Pantoprazole Sodium (Protonix -) 20 mg PO BID [facility] Last Admin: 09/21/16 09:58 Dose: 20 mg Sodium Chloride (Sodium Chloride Tablet -) 1 gm PO TID [facility] Last Admin: 09/21/16 13:42 Dose: 1 gm Valproate Sodium (Depakene -) 1,250 mg PO HS [facility] Last Admin: 09/20/16 23:05 Dose: 1,250 mg - Objective Vital Signs: Vital Signs Temperature 99.2 F 09/21/16 10:00 Pulse Rate 108 H 09/21/16 10:00 Respiratory Rate 22 09/21/16 10:00 Blood Pressure 141/78 09/21/16 10:00 O2 Sat by Pulse Oximetry (%) 96 09/21/16 09:00 Constitutional: Yes: No Distress, Calm Cardiovascular: Yes: Regular Rate and Rhythm Respiratory: Yes: Regular, Poor Air Entry, Rhonchi Gastrointestinal: Yes: Normal Bowel Sounds, Soft Musculoskeletal: Yes: WNL Extremities: Yes: WNL Neurological: Yes: Alert Psychiatric: Yes: Alert Labs: CBC, BMP 09/21/16 06:35 09/21/16 12:45 INR, PTT INR 1.20 (0.82-1.09) 09/18/16 08:49 Assessment/Plan Problem List - Problems (1) Pneumonia Code(s): J18.9 - PNEUMONIA, UNSPECIFIED ORGANISM Qualifiers: Pneumonia type: due to unspecified organism Laterality: right Lung location: upper lobe of lung Qualified Code(s): J18.9 - Pneumonia, unspecified organism (2) Severe sepsis Code(s): A41.9 - SEPSIS, UNSPECIFIED ORGANISM R65.20 - SEVERE SEPSIS WITHOUT SEPTIC SHOCK (3) Lactic acidosis Code(s): E87.2 - ACIDOSIS (4) Hyponatremia Code(s): E87.1 - HYPO-OSMOLALITY AND HYPONATREMIA (5) Hypothyroidism Code(s): E03.9 - HYPOTHYROIDISM, UNSPECIFIED Qualifiers: Hypothyroidism type: acquired Qualified Code(s): E03.9 - Hypothyroidism, unspecified (6) Mental retardation Code(s): F79 - UNSPECIFIED INTELLECTUAL DISABILITIES plan switched abx back to iv suggest keeping patient npo
[2016-09-21] MEDS: PIPERACILLIN/TAZOB 3.375 GM 50 ML IVPB SCH (17:43)
[2016-09-21] MEDS ORDERED: PIPERACILLIN/TAZOB 3.375 GM 3.375 GM in DEXTROSE 5%-WATER - 50 ML IVPB SCH (18:00)
[2016-09-21] MEDS ORDERED: SODIUM CHLORIDE 1,000 ML IV SCH (19:15)
[2016-09-21] MEDS: ARIPiprazole 10 MG TABLET PO SCH (21:45)
[2016-09-21] MEDS: ATORVASTATIN CA 10 MG TABLET (FP) PO SCH (21:47)
[2016-09-21] MEDS: VALPROATE SODIUM 250 MG/5 ML UNIT DOSE CUP PO SCH (21:47)
[2016-09-21] MEDS: MONTELUKAST NA 10 MG TABLET PO SCH (21:48)
[2016-09-22] MEDS: PIPERACILLIN/TAZOB 3.375 GM 50 ML IVPB SCH ×4 (02:25→17:40)
[2016-09-22] MEDS: busPIRone HCL 5 MG TABLET PO SCH ×3 (05:54→22:41)
[2016-09-22] MEDS: SODIUM CHLORIDE 1 GM TABLET PO SCH ×3 (05:54→22:44)
[2016-09-22] MEDS: LEVOTHYROXINE NA 75 MCG TABLET (FP) PO SCH (06:41)
--- NOTE | 2016-09-22 08:40 | PN ---
Physical Exam: SUBJECTIVE: Patient seen and examined. She is awake in bed, playing with a backpack. Wet cough noted. Aid at bedside Events: Afebrile Per overnight RN, pt went wild and pull out IV OBJECTIVE: Vital Signs Period Temp Pulse Resp BP Sys/Chinchilla Pulse Ox Last 24 Hr 98.4 F-99.2 F 87-108 18-22 96-141/51-85 96-97 PE Neuro: awake, alert, cn 2-12 intact Pulm: diminished based R>L, left base crackles CV: s1 s2 rrr no mrg Abd: s nt nd + bs Ext: warm, no edema CBCD WBC 10.9 K/mm3 (4.0-10.0) H D 09/22/16 07:00 RBC 3.33 M/mm3 (3.60-5.2) L 09/22/16 07:00 Hgb 10.6 GM/dL (10.7-15.3) L D 09/22/16 07:00 Hct 31.3 % (32.4-45.2) L 09/22/16 07:00 MCV 94.0 fl (80-96) 09/22/16 07:00 MCHC 33.9 g/dl (32.0-36.0) 09/22/16 07:00 RDW 22.2 % (11.6-15.6) H 09/22/16 07:00 Plt Count 359 K/MM3 (134-434) 09/22/16 07:00 MPV 8.1 fl (7.5-11.1) 09/22/16 07:00 CMP Sodium 139 mmol/L (136-145) 09/22/16 07:00 Potassium 4.4 mmol/L (3.5-5.1) 09/22/16 07:00 Chloride 98 mmol/L (98-107) 09/22/16 07:00 Carbon Dioxide 35 mmol/L (21-32) H 09/22/16 07:00 Anion Gap 6 (8-16) L 09/22/16 07:00 BUN 16 mg/dL (7-18) 09/22/16 07:00 Creatinine 0.9 mg/dL (0.55-1.02) 09/22/16 07:00 Creat Clearance w eGFR 58.45 (>60) 09/18/16 08:49 Calcium 8.6 mg/dL (8.5-10.1) 09/22/16 07:00 Total Bilirubin 0.9 mg/dl (0.2-1.0) D 09/18/16 08:49 AST 42 U/L (10-42) D 09/18/16 08:49 ALT 10 U/L (10-40) D 09/18/16 08:49 Alkaline Phosphatase 60 U/L (32-92) 09/18/16 08:49 Total Protein 7.0 g/dl (6.4-8.3) 09/18/16 08:49 Albumin 2.8 g/dl (3.5-5.0) L 09/18/16 08:49 Active Medications Generic Name Dose Route Start Last Admin Trade Name Freq PRN Reason Stop Dose Admin Acetaminophen 650 mg 09/19/16 23:10 09/21/16 21:49 Tylenol - PO 650 mg Q4H PRN Administration FEVER OR PAIN Albuterol/Ipratropium 1 amp 09/19/16 23:10 09/21/16 10:15 Duoneb - NEB 1 amp Q4H PRN Administration SHORTNESS OF BREATH Aripiprazole 20 mg 09/20/16 22:00 09/21/16 21:45 Abilify PO 20 mg HS [facility] Administration Ascorbic Acid 500 mg 09/20/16 10:00 09/21/16 09:58 Vitamin C - PO 500 mg DAILY [facility] Administration Atorvastatin Calcium 10 mg 09/20/16 22:00 09/21/16 21:47 Lipitor - PO 10 mg HS [facility] Administration Buspirone HCl 15 mg 09/20/16 06:00 09/22/16 05:54 Buspar - PO 15 mg TID [facility] Administration Calcium Carbonate/Cholecalciferol 1 tab 09/20/16 10:00 09/21/16 09:58 Os-Christian 500+D - PO 1 tab DAILY [facility] Administration Enoxaparin Sodium 40 mg 09/21/16 10:00 09/21/16 09:57 Lovenox - SQ 40 mg DAILY [facility] Administration Piperacillin Sod/Tazobactam Sod 50 mls @ 100 mls/hr 09/21/16 18:00 09/22/16 02: 56 Zosyn 3.375gm Ivpb (Pre-Docked) IVPB Not Given Q8H-IV [facility] Levothyroxine Sodium 75 mcg 09/20/16 07:00 09/22/16 06:41 Synthroid - PO 75 mcg ACBK [facility] Administration Loratadine 10 mg 09/20/16 10:00 09/21/16 09:58 Claritin - PO 10 mg DAILY [facility] Administration Montelukast Sodium 10 mg 09/20/16 22:00 09/21/16 21:48 Singulair - PO 10 mg HS [facility] Administration Ondansetron HCl 4 mg 09/19/16 23:10 Zofran Injection IVPB Q4H PRN NAUSEA Pantoprazole Sodium 20 mg 09/20/16 10:00 09/21/16 21:48 Protonix - PO 20 mg BID [facility] Administration Sodium Chloride 1 gm 09/20/16 06:00 09/22/16 05:54 Sodium Chloride Tablet - PO 1 gm TID [facility] Administration Valproate Sodium 1,250 mg 09/20/16 22:00 09/21/16 21:47 Depakene - PO 1,250 mg HS [facility] Administration Assessment: 50 year old female with pmhx hypothyroidism, hyperlipidemia, hyponatremia, Down syndrome, and recurrent pneumonia likely from aspiration admitted with rigors and fever, found to be septic. Plan: 1. Sepsis secondary to healthcare-associated pneumonia, probable aspiration - WBC greatly improved - x1 dose zosyn yesterday - Will attempt to replace IV when calm, before switching to PO - If unable, will restart clindamycin and augmentin PO - Trial lasix prn d/t r lobe pleural changes - Await ID recs 2. Electrolytes Hyponatremia - Continue sodium chloride tabs Hyperkalemia 3. Hypothyroidism - Continue Synthroid 4. Hyperlipidemia - Continue Mevacor 5. Down syndrome with severe mental retardation - Continue Depakene, Abilify, BuSpar 6. Lactic acidemia - Secondary to sepsis; now resolved Visit type - Emergency Visit Emergency Visit: Yes ED Registration Date: 09/18/16 Care time: The patient presented to the Emergency Department on the above date and was hospitalized for further evaluation of their emergent condition. - New Patient This patient is new to me today: No - Critical Care Critical Care patient: No
[2016-09-22 08:41] LABS: MCH 31.9 pg (25.7-33.7); MCHC 33.9 g/dl (32.0-36.0); MEAN PLT VOLUME 8.1 fl (7.5-11.1); PLATELET COUNT 359 K/MM3 (134-434); RDW 22.2 % (11.6-15.6); WHITE BLOOD COUNT 10.9 K/mm3 (4.0-10.0)
[2016-09-22 09:06] LABS: CALCIUM 8.6 mg/dL (8.5-10.1); CREATININE 0.9 mg/dL (0.55-1.02)
[2016-09-22] MEDS: ASCORBIC ACID 500 MG TABLET (FP) PO SCH (09:50)
[2016-09-22] MEDS: LORATADINE 10 MG TABLET PO SCH (09:50)
[2016-09-22] MEDS: PANTOPRAZOLE 20 MG TABLET (FP) PO SCH ×2 (09:50→22:43)
[2016-09-22] MEDS: CALCIUM 500MG/VIT-D 200 UNITS COMBO TABLET (FP) PO SCH (09:50)
[2016-09-22] MEDS: ENOXAPARIN NA (PORCINE) 40 MG/0.4 ML DISP.SYRIN SQ SCH (09:50)
--- NOTE | 2016-09-22 09:56 | PN ---
Progress Note (short form) - Note Progress Note: PULMONARY CHART REVIEWED HEALTH AIDE IN ATTENDANCE AFEBRILE PALE/CHRONICALLY ILL ANICTERIC SCATTERED RIGHT RHONCHI S1S2 BS+ NO EDEMA LABS/MEDS/NOTES/IMAGING REVIEWED Recurrent Pneumonia (?) Aspiration Severe Sepsis Lactic Acidosis Mental Retardation Hypothyroidism - ABX per ID - Monitor off IVF - monitor urine output, creatinine - aspiration precautions - Daily assessment for Lasix need - PO as tolerated - DVT prophylaxis WILL FOLLOW THANK YOU Anselmo MARTINEZ MD
[2016-09-22 09:57] LABS: METAMYELOCYTE 9 % (0-2)
--- NOTE | 2016-09-22 13:48 | CONSULT ---
Admitting History and Physical - Primary Care Physician PCP: Nohemi Robb - Admission History of Present Illness: Per EMR: "HISTORY OF PRESENT ILLNESS: This is a 50-year-old woman who was brought in to the ER today because she was noted to be shivering and was found to have a temp of 100.3. She has a history of Down syndrome and mental retardation and is unable to provide a history. She has a history of recurrent pneumonia, aspiration. In the ER, her temp was 101 and HR 132. Chest x-ray showed a right- sided infiltrate. She was treated with Zosyn and Vancomycin. PAST MEDICAL HISTORY Hyperlipidemia Hypothyroidism Hyponatremia Down syndrome" Pt known to me from recurrent admissions. Previous rec on 08/09/16 were trial of : Dysphagia puree, magic cup, honey thick liquid on a tsp, a few tsp at a time,(5?), allowing time to pass through the esophagus, (possibly walking after PO intake), Small amounts throughout day/every hour. No PO intake within 2 hr of bedtime Pt overtly tolerated puree and honey thick liquid on a tsp from 09/18 to .With reported good tolerance 09/21-patient with low grade temp increase in wbc Made NPO. Pt calm. No overt congestion. Readily accepted pudding with good overt tolerance. Previous admission with suspicion for retrograde aspiratrion sec intermittently impaired esoph emptying. 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 MEDICAL ASSISTANT: Yes: Other (MR) Pulmonary: Yes: Pneumonia Gastrointestinal: Yes: Other (see CT-chest results regarding esophageal dilation ) Endocrine: Yes: Hypothyroidism - Smoking History Smoking history: Never smoked Have you smoked in the past 12 months: No - Alcohol/Substance Use Hx Alcohol Use: No History of Substance Use: reports: None - Social History ADL: Support Services Occupation: disabled History of Recent Travel: No History - Admission Reason For Visit: PNEUMONIA,SEPSIS - Diagnostics X-ray: Report Reviewed Modified Barium Swallow: Report Reviewed (08/05 trace aspiration on nectar. Impaired esophageal emptying, suspected to be intermittent.) - General Mental Status: Awake and Alert, Able to Follow Commands Attention: Intact Ability to Follow Directions: Fair Head/Neck Control: Good Speech Evaluation - Communication Primary Language: [place] Oral Expression Ability: Yes: Non-Verbal (sign language) - Language/Auditory Comprehension Observation: Comprehends Conversational Speech: Yes (understands some directives ) - Swallow Evaluation/Bedside Assessment Current Nutritional Intake: NPO Oral Secretions: Yes: WFL Dentition: Yes: Edentulous Facial Symmetry at Rest: Symmetrical Facial Symmetry on Retraction: Symmetrical Jaw Position: Open at Rest Against Resistance Closing: Normal Pucker Lips: Normal Smile: Normal Lingual Movement: Normal, Symmetric Lingual Speed of Movement: Normal Lingual Movement Strgth Against Opposition: Normal Lingual Movement Characteristics: Normal Laryngeal Movement: Labored,delay initiation Rate of Intake: WFL Bolus Size: WFL Oral Prep Time: WFL A-P Transit: WFL Pocketing: None Timing of Swallow: Delayed Coughing/Throat Clear: No Recommendations - Speech Evaluation, Impression/Plan Impression: Last MBS 08/05/16 trace aspiration on nectar. Impaired esophageal emptying, suspected to be intermittent. Retrograde aspiration risk suspected. Pt known to me from recurrent admissions. Previous rec on 08/09/16 were trial of : Dysphagia puree, magic cup, honey thick liquid on a tsp,. a few tsp at a time,(5?),. allowing time to pass through the esophagus,. (possibly walking after PO intake),. Small amounts throughout day/every hour. No PO intake within 2 hr of bedtime. Pt overtly tolerated puree and honey thick liquid on a tsp from 09/18 to 09/21.With reported good tolerance. 09/21-patient with low grade temp. increase in wbc. Made NPO. Pt calm. No overt congestion. Readily accepted pudding with good overt tolerance. Previous admission with suspicion for retrograde aspiratrion sec intermittently impaired esoph emptying. - Dysphagia Impressions/Plan Dysphagia Impressions: Ongoing Evaluation *Silent aspiration: cannot be R/O at bedside Recommendations: MBS w Esophagus (if persistant difficulty suspected), Other ( Dysphagia puree, magic cup, honey thick liquid on a tsp, a few tsp at a time,(5? ), allowing time to pass through the esophagus, (possibly walking after PO intake), Small amounts throughout day/every hour. No PO intake within 2 hr of bedtime (possibly walking after PO intake),) - Recommendations Diet Consistency: Dysphagia Pureed Medication Administration: Crushed with applesauce Liquids: Honey Thick (on tsp) Supplement: Magic Cup
[2016-09-22] MEDS ORDERED: PT OWN MED DRAWER 7, Y5N ONE ×2 (14:38→22:14)
--- NOTE | 2016-09-22 15:46 | PN ---
Progress Note, Physician History of Present Illness: patient looks much better no events - Current Medication List Current Medications: Active Medications Acetaminophen (Tylenol -) 650 mg PO Q4H PRN PRN Reason: FEVER OR PAIN Last Admin: 09/21/16 21:49 Dose: 650 mg Albuterol/Ipratropium (Duoneb -) 1 amp NEB Q4H PRN PRN Reason: SHORTNESS OF BREATH Last Admin: 09/21/16 10:15 Dose: 1 amp Aripiprazole (Abilify) 20 mg PO HS [facility] Last Admin: 09/21/16 21:45 Dose: 20 mg Ascorbic Acid (Vitamin C -) 500 mg PO DAILY [facility] Last Admin: 09/22/16 09:50 Dose: 500 mg Atorvastatin Calcium (Lipitor -) 10 mg PO HS [facility] Last Admin: 09/21/16 21:47 Dose: 10 mg Buspirone HCl (Buspar -) 15 mg PO TID [facility] Last Admin: 09/22/16 14:37 Dose: 15 mg Calcium Carbonate/Cholecalciferol (Os-Christian 500+D -) 1 tab PO DAILY [facility] Last Admin: 09/22/16 09:50 Dose: 1 tab Enoxaparin Sodium (Lovenox -) 40 mg SQ DAILY [facility] Last Admin: 09/22/16 09:50 Dose: 40 mg Piperacillin Sod/Tazobactam Sod (Zosyn 3.375gm Ivpb (Pre-Docked)) 50 mls @ 100 mls/hr IVPB Q8H-IV [facility] Last Admin: 09/22/16 09:50 Dose: 100 mls/hr Levothyroxine Sodium (Synthroid -) 75 mcg PO ACBK [facility] Last Admin: 09/22/16 06:41 Dose: 75 mcg Loratadine (Claritin -) 10 mg PO DAILY [facility] Last Admin: 09/22/16 09:50 Dose: 10 mg Montelukast Sodium (Singulair -) 10 mg PO HS [facility] Last Admin: 09/21/16 21:48 Dose: 10 mg Ondansetron HCl (Zofran Injection) 4 mg IVPB Q4H PRN PRN Reason: NAUSEA Pantoprazole Sodium (Protonix -) 20 mg PO BID [facility] Last Admin: 09/22/16 09:50 Dose: 20 mg Sodium Chloride (Sodium Chloride Tablet -) 1 gm PO TID [facility] Last Admin: 09/22/16 14:38 Dose: 1 gm Valproate Sodium (Depakene -) 1,250 mg PO HS [facility] Last Admin: 09/21/16 21:47 Dose: 1,250 mg - Objective Vital Signs: Vital Signs Temperature 98.2 F 09/22/16 10:00 Pulse Rate 92 H 09/22/16 15:32 Respiratory Rate 18 09/22/16 10:00 Blood Pressure 120/90 09/22/16 15:32 O2 Sat by Pulse Oximetry (%) 97 09/22/16 09:00 Constitutional: Yes: No Distress, Calm Neck: Yes: Supple Cardiovascular: Yes: Regular Rate and Rhythm Respiratory: Yes: Regular, Poor Air Entry Gastrointestinal: Yes: Normal Bowel Sounds, Soft Musculoskeletal: Yes: WNL Extremities: Yes: WNL Neurological: Yes: Alert, Other Labs: CBC, BMP 09/22/16 07:00 09/22/16 07:00 INR, PTT INR 1.20 (0.82-1.09) 09/18/16 08:49 Assessment/Plan Problem List - Problems (1) Pneumonia Code(s): J18.9 - PNEUMONIA, UNSPECIFIED ORGANISM Qualifiers: Pneumonia type: due to unspecified organism Laterality: right Lung location: upper lobe of lung Qualified Code(s): J18.9 - Pneumonia, unspecified organism (2) Severe sepsis Code(s): A41.9 - SEPSIS, UNSPECIFIED ORGANISM R65.20 - SEVERE SEPSIS WITHOUT SEPTIC SHOCK (3) Lactic acidosis Code(s): E87.2 - ACIDOSIS (4) Hyponatremia Code(s): E87.1 - HYPO-OSMOLALITY AND HYPONATREMIA (5) Hypothyroidism Code(s): E03.9 - HYPOTHYROIDISM, UNSPECIFIED Qualifiers: Hypothyroidism type: acquired Qualified Code(s): E03.9 - Hypothyroidism, unspecified (6) Mental retardation Code(s): F79 - UNSPECIFIED INTELLECTUAL DISABILITIES plan continue iv abx wbc trended down
[2016-09-22] MEDS: ARIPiprazole 10 MG TABLET PO SCH (22:41)
[2016-09-22] MEDS: VALPROATE SODIUM 250 MG/5 ML UNIT DOSE CUP PO SCH (22:42)
[2016-09-22] MEDS: ATORVASTATIN CA 10 MG TABLET (FP) PO SCH (22:42)
[2016-09-22] MEDS: MONTELUKAST NA 10 MG TABLET PO SCH (22:43)
[2016-09-22] MEDS: ACETAMINOPHEN 325 MG TABLET (FP) PO PRN (23:44)
[2016-09-23] MEDS: PIPERACILLIN/TAZOB 3.375 GM 50 ML IVPB SCH ×3 (01:48→17:22)
[2016-09-23] MEDS: busPIRone HCL 5 MG TABLET PO SCH ×3 (06:48→23:00)
[2016-09-23] MEDS: LEVOTHYROXINE NA 75 MCG TABLET (FP) PO SCH (06:49)
[2016-09-23] MEDS: SODIUM CHLORIDE 1 GM TABLET PO SCH ×3 (06:49→23:02)
[2016-09-23] MEDS: ACETAMINOPHEN 325 MG TABLET (FP) PO PRN ×2 (06:50→23:02)
[2016-09-23 07:04] LABS: MCH 31.2 pg (25.7-33.7); MEAN CELL VOLUME 94.5 fl (80-96); MEAN PLT VOLUME 7.9 fl (7.5-11.1); PLATELET COUNT 359 K/MM3 (134-434); RDW 21.9 % (11.6-15.6); WHITE BLOOD COUNT 9.6 K/mm3 (4.0-10.0)
--- NOTE | 2016-09-23 09:16 | PN ---
Progress Note (short form) - Note Progress Note: NAD on NC O2. No acute events overnight. Intake & Output 09/20/16 09/21/16 09/22/16 09/23/16 23:59 23:59 23:59 23:59 Intake Total 9200 954 9877 Balance 2486 817 4194 Weight 107 lb 3 oz 110 lb 107 lb 6.4 oz 107 lb 9.6 oz Last Vital Signs Temp Pulse Resp BP Pulse Ox 97.5 F L 76 18 170/95 98 09/23/16 06:00 09/23/16 06:00 09/23/16 06:00 09/23/16 06:00 09/22/16 21:00 Active Medications Acetaminophen (Tylenol -) 650 mg PO Q4H PRN PRN Reason: FEVER OR PAIN Last Admin: 09/23/16 06:50 Dose: 650 mg Albuterol/Ipratropium (Duoneb -) 1 amp NEB Q4H PRN PRN Reason: SHORTNESS OF BREATH Last Admin: 09/21/16 10:15 Dose: 1 amp Aripiprazole (Abilify) 20 mg PO HS [facility] Last Admin: 09/22/16 22:41 Dose: 20 mg Ascorbic Acid (Vitamin C -) 500 mg PO DAILY [facility] Last Admin: 09/22/16 09:50 Dose: 500 mg Atorvastatin Calcium (Lipitor -) 10 mg PO HS [facility] Last Admin: 09/22/16 22:42 Dose: 10 mg Buspirone HCl (Buspar -) 15 mg PO TID [facility] Last Admin: 09/23/16 06:48 Dose: 15 mg Calcium Carbonate/Cholecalciferol (Os-Christian 500+D -) 1 tab PO DAILY [facility] Last Admin: 09/22/16 09:50 Dose: 1 tab Enoxaparin Sodium (Lovenox -) 40 mg SQ DAILY [facility] Last Admin: 09/22/16 09:50 Dose: 40 mg Piperacillin Sod/Tazobactam Sod (Zosyn 3.375gm Ivpb (Pre-Docked)) 50 mls @ 100 mls/hr IVPB Q8H-IV [facility] Last Admin: 09/23/16 01:48 Dose: 100 mls/hr Levothyroxine Sodium (Synthroid -) 75 mcg PO ACBK [facility] Last Admin: 09/23/16 06:49 Dose: 75 mcg Loratadine (Claritin -) 10 mg PO DAILY [facility] Last Admin: 09/22/16 09:50 Dose: 10 mg Montelukast Sodium (Singulair -) 10 mg PO [facility] Last Admin: 09/22/16 22:43 Dose: 10 mg Ondansetron HCl (Zofran Injection) 4 mg IVPB Q4H PRN PRN Reason: NAUSEA Pantoprazole Sodium (Protonix -) 20 mg PO BID [facility] Last Admin: 09/22/16 22:43 Dose: 20 mg Sodium Chloride (Sodium Chloride Tablet -) 1 gm PO TID [facility] Last Admin: 09/23/16 06:49 Dose: 1 gm Valproate Sodium (Depakene -) 1,250 mg PO [facility] Last Admin: 09/22/16 22:42 Dose: 1,250 mg Constitutional: Yes: NAD Eyes: Yes: Conjunctiva Clear, EOM Intact HENT: Yes: Atraumatic, Normocephalic Neck: Yes: Supple, Trachea Midline Cardiovascular: Yes: Regular Rate and Rhythm Respiratory: Yes: Scattered Bibasilar rhonchi ...Clubbing: No Gastrointestinal: Yes: Normal Bowel Sounds, Soft. No: Tenderness Peripheral Pulses WNL: No Laboratory Results - last 24 hr 09/22/16 09/23/16 07:00 06:05 WBC 9.6 RBC 3.73 Hgb 11.6 Hct 35.3 MCV 94.5 MCHC 33.0 RDW 21.9 H Plt Count 359 MPV 7.9 Neutrophils % 52.0 Y Lymphocytes % 12.0 Y Monocytes % 7.0 Basophils % 2.0 D Band Neutrophils 3.0 D Metamyelocytes 9 H D Myelocytes 15 H D Nucleated RBCs 2 H Differential Comment Manual diff done Problem List - Problems (1) Pneumonia Code(s): J18.9 - PNEUMONIA, UNSPECIFIED ORGANISM Qualifiers: Pneumonia type: due to unspecified organism Laterality: right Lung location: upper lobe of lung Qualified Code(s): J18.9 - Pneumonia, unspecified organism (2) Severe sepsis Code(s): A41.9 - SEPSIS, UNSPECIFIED ORGANISM R65.20 - SEVERE SEPSIS WITHOUT SEPTIC SHOCK (3) Lactic acidosis Code(s): E87.2 - ACIDOSIS (4) Hyponatremia Code(s): E87.1 - HYPO-OSMOLALITY AND HYPONATREMIA (5) Hypothyroidism Code(s): E03.9 - HYPOTHYROIDISM, UNSPECIFIED Qualifiers: Hypothyroidism type: acquired Qualified Code(s): E03.9 - Hypothyroidism, unspecified (6) Mental retardation Code(s): F79 - UNSPECIFIED INTELLECTUAL DISABILITIES Assessment/Plan Recurrent Pneumonia (?) Aspiration Severe Sepsis Lactic Acidosis Mental Retardation Hypothyroidism - ABX per ID -> consider deescalate - Monitor off IVF - monitor urine output, creatinine - aspiration precautions - Daily assessment for Lasix need - PO as tolerated - DVT prophylaxis - D/C planning Dr Joshua
--- NOTE | 2016-09-23 10:03 | PN ---
Physical Exam: SUBJECTIVE: Patient seen and examined. Pt was sitting up in bed, in no acute distress, tolerating room air. Aide is at the bedside and provided the history since pt has developmental delays. Pt pulled out peripheral IV line. OBJECTIVE: Vital Signs Period Temp Pulse Resp BP Sys/Chinchilla Pulse Ox Last 24 Hr 97.5 F-98.9 F 76-92 16-18 120-170/60-95 98 GENERAL: The patient is awake, alert. She is has developmental delays (down syndrome), unable to participate in the exam. HEAD: Normal with no signs of trauma. EYES: conjunctiva clear. No ptosis. ENT: Ears normal, nares patent, oropharynx clear without exudates, NECK: Trachea midline, full range of motion, supple. LUNGS: Right lower lobe with rales, left lower lobe with fine crackles at the base, tolerating room air HEART: Regular rate and rhythm ABDOMEN: Soft, nontender, nondistended, normoactive bowel sounds, no guarding EXTREMITIES: 2+ pulses, warm, well-perfused, no edema. NEUROLOGICAL: Normal speech, gait not observed. PSYCH: At baseline SKIN: Warm, dry, normal turgor, no rashes or lesions noted Laboratory Results - last 24 hr 09/23/16 09/23/16 06:05 07:00 WBC 9.6 RBC 3.73 Hgb 11.6 Hct 35.3 MCV 94.5 MCHC 33.0 RDW 21.9 H Plt Count 359 MPV 7.9 Neutrophils % Y Lymphocytes % Y Sodium Cancelled Potassium Cancelled Chloride Cancelled Carbon Dioxide Cancelled Anion Gap Cancelled BUN Cancelled Creatinine Cancelled Creat Clearance w eGFR Cancelled Random Glucose Cancelled Calcium Cancelled Total Bilirubin Cancelled AST Cancelled ALT Cancelled Alkaline Phosphatase Cancelled Total Protein Cancelled Albumin Cancelled Active Medications Generic Name Dose Route Start Last Admin Trade Name Freq PRN Reason Stop Dose Admin Acetaminophen 650 mg 09/19/16 23:10 09/23/16 06:50 Tylenol - PO 650 mg Q4H PRN Administration FEVER OR PAIN Albuterol/Ipratropium 1 amp 09/19/16 23:10 09/21/16 10:15 Duoneb - NEB 1 amp Q4H PRN Administration SHORTNESS OF BREATH Aripiprazole 20 mg 09/20/16 22:00 09/22/16 22:41 Abilify PO 20 mg HS [facility] Administration Ascorbic Acid 500 mg 09/20/16 10:00 09/22/16 09:50 Vitamin C - PO 500 mg DAILY [facility] Administration Atorvastatin Calcium 10 mg 09/20/16 22:00 09/22/16 22:42 Lipitor - PO 10 mg HS [facility] Administration Buspirone HCl 15 mg 09/20/16 06:00 09/23/16 06:48 Buspar - PO 15 mg TID [facility] Administration Calcium Carbonate/Cholecalciferol 1 tab 09/20/16 10:00 09/22/16 09:50 Os-Christian 500+D - PO 1 tab DAILY [facility] Administration Enoxaparin Sodium 40 mg 09/21/16 10:00 09/22/16 09:50 Lovenox - SQ 40 mg DAILY [facility] Administration Piperacillin Sod/Tazobactam Sod 50 mls @ 100 mls/hr 09/21/16 18:00 09/23/16 01: 48 Zosyn 3.375gm Ivpb (Pre-Docked) IVPB 100 mls/hr Q8H-IV [facility] Administration Levothyroxine Sodium 75 mcg 09/20/16 07:00 09/23/16 06:49 Synthroid - PO 75 mcg ACBK [facility] Administration Loratadine 10 mg 09/20/16 10:00 09/22/16 09:50 Claritin - PO 10 mg DAILY [facility] Administration Montelukast Sodium 10 mg 09/20/16 22:00 09/22/16 22:43 Singulair - PO 10 mg HS [facility] Administration Ondansetron HCl 4 mg 09/19/16 23:10 Zofran Injection IVPB Q4H PRN NAUSEA Pantoprazole Sodium 20 mg 09/20/16 10:00 09/22/16 22:43 Protonix - PO 20 mg BID [facility] Administration Sodium Chloride 1 gm 09/20/16 06:00 09/23/16 06:49 Sodium Chloride Tablet - PO 1 gm TID [facility] Administration Valproate Sodium 1,250 mg 09/20/16 22:00 09/22/16 22:42 Depakene - PO 1,250 mg HS [facility] Administration ASSESSMENT/PLAN: Patient is a 50 year old female (from a [place] [facility]) with a significant past medical history of mental retardation, down syndrome, hypothyroidism and pneumonia. Patient is unable to provide a history as she has down syndrome with MR. She was brought into the ED on 09/18/2016. In the ER she was noted to have a temp of 101F, bibasilar infiltrates, hypotension with an elevated lactic acid. She was started on IV hydration, IV antibiotics and transferred to the ICU for closer monitoring. On 09/20/2016 she was transferred to a Med surg floor. ID: Sepsis secondary to Pneumonia - resolved Assessment/Plan: She is s/p ICU monitoring and has been on medical surgical since 09/20/2016. She is tolerating room air, vitals are stable, has adequate I&Os. As per ID, she will continue IV Zosyn and can be switched to Augmentin 875mg tomorrow WBC normalized Blood cultures and urine cultures negative Lactic Acidosis - resolved Assessment/Plan: On admission lactic levels were 2.8, since have resolved Neuro: Down Syndrome/MR Assessment/Plan: Back to baseline as per her aide. F.E.N: Fluids: honey thickened fluids - aspiration precautions Electrolytes: within normal limits Hyponatremia: resolved, on sodium tablets Hypothyroidism: On Synthroid 75mcgs Hyperlipidemia: On Lipitor Hyperkalemia: resolved Nutrition: Dysphagia pureed, aspiration precautions Prophylaxis: DVT: Lovenox 40mg daily GI: daily colace Disposition: Anticipate discharge tomorrow on PO antibiotics. Full code. Visit type - Emergency Visit Emergency Visit: Yes ED Registration Date: 09/18/16 Care time: The patient presented to the Emergency Department on the above date and was hospitalized for further evaluation of their emergent condition. - New Patient This patient is new to me today: Yes Date on this admission: 09/23/16 - Critical Care Critical Care patient: No - Discharge Referral Referred to [facility] Med P.C.: No
--- NOTE | 2016-09-23 11:42 | PN ---
Progress Note, [employer] - Note Progress Note: Selected Entries 09/22/16 09/22/16 09/22/16 06:00 10:00 15:32 Lunch NPO Temperature 98.4 F 98.2 F 09/22/16 09/22/16 09/23/16 17:42 21:00 01:00 Lunch Temperature 98.5 F 98.8 F 98.9 F 09/23/16 06:00 Lunch Temperature 97.5 F L Laboratory Tests 09/22/16 09/23/16 07:00 06:05 WBC 10.9 H D 9.6 Puree and honey thick liquids initiated last night. Nurse Rn Bsn walked her after dinner. Completed and tolerated breakfast as well. Counseled staff re swallowing rec.
[2016-09-23] MEDS: LORATADINE 10 MG TABLET PO SCH (11:43)
[2016-09-23] MEDS: CALCIUM 500MG/VIT-D 200 UNITS COMBO TABLET (FP) PO SCH (11:43)
[2016-09-23] MEDS: ENOXAPARIN NA (PORCINE) 40 MG/0.4 ML DISP.SYRIN SQ SCH (11:44)
[2016-09-23] MEDS: ASCORBIC ACID 500 MG TABLET (FP) PO SCH (11:44)
[2016-09-23] MEDS: PANTOPRAZOLE 20 MG TABLET (FP) PO SCH ×2 (11:44→23:01)
[2016-09-23 11:49] LABS: METAMYELOCYTE 10 % (0-2)
--- NOTE | 2016-09-23 13:06 | PN ---
Progress Note, Physician History of Present Illness: patient doing better has remained stable - Current Medication List Current Medications: Active Medications Acetaminophen (Tylenol -) 650 mg PO Q4H PRN PRN Reason: FEVER OR PAIN Last Admin: 09/23/16 06:50 Dose: 650 mg Albuterol/Ipratropium (Duoneb -) 1 amp NEB Q4H PRN PRN Reason: SHORTNESS OF BREATH Last Admin: 09/21/16 10:15 Dose: 1 amp Aripiprazole (Abilify) 20 mg PO HS [facility] Last Admin: 09/22/16 22:41 Dose: 20 mg Ascorbic Acid (Vitamin C -) 500 mg PO DAILY [facility] Last Admin: 09/23/16 11:44 Dose: 500 mg Atorvastatin Calcium (Lipitor -) [address] [facility] Last Admin: 09/22/16 22:42 Dose: 10 mg Buspirone HCl (Buspar -) 15 mg PO TID [facility] Last Admin: 09/23/16 06:48 Dose: 15 mg Calcium Carbonate/Cholecalciferol (Os-Christian 500+D -) 1 tab PO DAILY [facility] Last Admin: 09/23/16 11:43 Dose: 1 tab Enoxaparin Sodium (Lovenox -) 40 mg SQ DAILY [facility] Last Admin: 09/23/16 11:44 Dose: 40 mg Piperacillin Sod/Tazobactam Sod (Zosyn 3.375gm Ivpb (Pre-Docked)) 50 mls @ 100 mls/hr IVPB Q8H-IV [facility] Last Admin: 09/23/16 12:22 Dose: 100 mls/hr Levothyroxine Sodium (Synthroid -) 75 mcg PO ACBK [facility] Last Admin: 09/23/16 06:49 Dose: 75 mcg Loratadine (Claritin -) 10 mg PO DAILY [facility] Last Admin: 09/23/16 11:43 Dose: 10 mg Montelukast Sodium (Singulair -) 10 mg PO HS [facility] Last Admin: 09/22/16 22:43 Dose: 10 mg Ondansetron HCl (Zofran Injection) 4 mg IVPB Q4H PRN PRN Reason: NAUSEA Pantoprazole Sodium (Protonix -) 20 mg PO BID [facility] Last Admin: 09/23/16 11:44 Dose: 20 mg Sodium Chloride (Sodium Chloride Tablet -) 1 gm PO TID [facility] Last Admin: 09/23/16 06:49 Dose: 1 gm Valproate Sodium (Depakene -) 1,250 mg PO HS [facility] Last Admin: 09/22/16 22:42 Dose: 1,250 mg - Objective Vital Signs: Vital Signs Temperature 97.5 F L 09/23/16 06:00 Pulse Rate 76 09/23/16 06:00 Respiratory Rate 18 09/23/16 06:00 Blood Pressure 170/95 09/23/16 06:00 O2 Sat by Pulse Oximetry (%) 98 09/22/16 21:00 Constitutional: Yes: No Distress, Calm Cardiovascular: Yes: Regular Rate and Rhythm Respiratory: Yes: Regular, CTA Bilaterally Gastrointestinal: Yes: Normal Bowel Sounds, Soft Musculoskeletal: Yes: WNL Extremities: Yes: WNL Neurological: Yes: Alert, Other Psychiatric: Yes: Alert Labs: CBC, BMP 09/23/16 06:05 09/23/16 07:00 INR, PTT INR 1.20 (0.82-1.09) 09/18/16 08:49 Assessment/Plan Problem List - Problems (1) Pneumonia Code(s): J18.9 - PNEUMONIA, UNSPECIFIED ORGANISM Qualifiers: Pneumonia type: due to unspecified organism Laterality: right Lung location: upper lobe of lung Qualified Code(s): J18.9 - Pneumonia, unspecified organism (2) Severe sepsis Code(s): A41.9 - SEPSIS, UNSPECIFIED ORGANISM R65.20 - SEVERE SEPSIS WITHOUT SEPTIC SHOCK (3) Lactic acidosis Code(s): E87.2 - ACIDOSIS (4) Hyponatremia Code(s): E87.1 - HYPO-OSMOLALITY AND HYPONATREMIA (5) Hypothyroidism Code(s): E03.9 - HYPOTHYROIDISM, UNSPECIFIED Qualifiers: Hypothyroidism type: acquired Qualified Code(s): E03.9 - Hypothyroidism, unspecified (6) Mental retardation Code(s): F79 - UNSPECIFIED INTELLECTUAL DISABILITIES plan continue iv abx wbc normal will change to oral tomorrow incentive mason avoid aspiration
[2016-09-23] MEDS ORDERED: PT OWN MED DRAWER 7, Y5N ONE (22:17)
[2016-09-23] MEDS: ARIPiprazole 10 MG TABLET PO SCH (22:59)
[2016-09-23] MEDS: ATORVASTATIN CA 10 MG TABLET (FP) PO SCH (23:01)
[2016-09-23] MEDS: VALPROATE SODIUM 250 MG/5 ML UNIT DOSE CUP PO SCH (23:01)
[2016-09-23] MEDS: MONTELUKAST NA 10 MG TABLET PO SCH (23:02)
[2016-09-24] MEDS: PIPERACILLIN/TAZOB 3.375 GM 50 ML IVPB SCH ×2 (02:19→09:55)
[2016-09-24 06:36] VITALS: BP 152/92; PULSE 78; TEMP 98.6
[2016-09-24] MEDS: busPIRone HCL 5 MG TABLET PO SCH (06:45)
[2016-09-24] MEDS: LEVOTHYROXINE NA 75 MCG TABLET (FP) PO SCH (06:46)
[2016-09-24] MEDS: SODIUM CHLORIDE 1 GM TABLET PO SCH (06:46)
[2016-09-24 08:29] LABS: MCH 31.9 pg (25.7-33.7); MCHC 33.8 g/dl (32.0-36.0); MEAN CELL VOLUME 94.4 fl (80-96); MEAN PLT VOLUME 7.9 fl (7.5-11.1); PLATELET COUNT 332 K/MM3 (134-434)
[2016-09-24 08:30] LABS: ALBUMIN 2.4 g/dl (3.4-5.0); CALCIUM 8.2 mg/dL (8.5-10.1)
--- NOTE | 2016-09-24 08:34 | DS ---
Physical Exam: SUBJECTIVE: Patient seen and examined. Pt was sitting up in bed, in no acute distress, tolerating room air. Aide is at the bedside and provided the history since pt has developmental delays. OBJECTIVE: Vital Signs Period Temp Pulse Resp BP Sys/Chinchilla Pulse Ox Last 24 Hr 97.3 F-98.9 F 76-82 16-22 112-152/61-92 93-95 PHYSICAL EXAM GENERAL: The patient is awake, alert. She is has developmental delays (down syndrome), unable to participate in the exam. HEAD: Normal with no signs of trauma. EYES: conjunctiva clear. No ptosis. ENT: Ears normal, nares patent, oropharynx clear without exudates, NECK: Trachea midline, full range of motion, supple. LUNGS: Right lower lobe with rales, left lower lobe with fine crackles at the base, tolerating room air HEART: Regular rate and rhythm ABDOMEN: Soft, nontender, nondistended, normoactive bowel sounds, no guarding EXTREMITIES: 2+ pulses, warm, well-perfused, no edema. NEUROLOGICAL: Normal speech, gait not observed. PSYCH: At baseline SKIN: Warm, dry, normal turgor, no rashes or lesions noted LABS Laboratory Results - last 24 hr 09/23/16 09/23/16 06:05 07:00 WBC 9.6 RBC 3.73 Hgb 11.6 Hct 35.3 MCV 94.5 MCHC 33.0 RDW 21.9 H Plt Count 359 MPV 7.9 Neutrophils % 28.0 L D Lymphocytes % 21.0 D Monocytes % 8.0 Eosinophils % 6.0 H D Band Neutrophils 9.0 D Metamyelocytes 10 H Myelocytes 16 H Differential Comment Manual diff done Reactive Lymphocytes 2 D Sodium Cancelled Potassium Cancelled Chloride Cancelled Carbon Dioxide Cancelled Anion Gap Cancelled BUN Cancelled Creatinine Cancelled Creat Clearance w eGFR Cancelled Random Glucose Cancelled Calcium Cancelled Total Bilirubin Cancelled AST Cancelled ALT Cancelled Alkaline Phosphatase Cancelled Total Protein Cancelled Albumin Cancelled HOSPITAL COURSE: Date of Admission:09/18/16 Date of Discharge: 09/24/16 ASSESSMENT/PLAN: Patient is a 50 year old female (from a snf) with a significant past medical history of mental retardation, down syndrome, hypothyroidism and pneumonia. Patient is unable to provide a history as she has down syndrome with MR. She was brought into the ED on 09/18/2016. In the ER she was noted to have a temp of 101F, bibasilar infiltrates, hypotension with an elevated lactic acid. She was started on IV hydration, IV antibiotics and transferred to the ICU for closer monitoring. On 09/20/2016 she was transferred to a Med surg floor. ID: Sepsis secondary to Pneumonia - resolved Assessment/Plan: She is s/p ICU monitoring and has been on medical surgical since 09/20/2016. She is tolerating room air, vitals are stable, has adequate I&Os. To continue Augmentin 875mg - 125 BID for 4 days Blood cultures and urine cultures negative Lactic Acidosis - resolved Assessment/Plan: On admission lactic levels were 2.8, since have resolved Neuro: Down Syndrome/MR Assessment/Plan: Back to baseline as per her aide. F.E.N: Fluids: honey thickened fluids - aspiration precautions to continue in snf Electrolytes: within normal limits Hyponatremia: resolved Hypothyroidism: On Synthroid 75mcgs Hyperlipidemia: On Lipitor Hyperkalemia: resolved Nutrition: Dysphagia pureed, aspiration precautions, honey thick Disposition: Stable for discharge back to snf. Full code. 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) Down's syndrome (Chronic) Hyperlipidemia (Chronic) Hyponatremia (Chronic) Hypothyroidism (Chronic) Mental retardation (Chronic) Psychiatric disorder (Chronic) Condition: Stable - Instructions Diet, Activity, Other Instructions: Diet Recommendations: Dysphagia pureed diet with magic cup honey thick liquid on a tablespoon a few times per day allow time to pass through the esophagus small amounts throughout the day/hour Nothing to eat within 2 hours of bedtime to avoid aspiration Allow pt to sit up when eating, do not place flat after eating, wait apx 2 hours before laying flat needs supervision Return to the ER if you experience any of the following: Shortness of breath Fevers Disposition: HOME - Home Medications Comprehensive Discharge Medication List: Ambulatory Orders Buspirone HCl [Buspar -] 15 mg PO TID 09/05/15 Cetirizine HCl 10 mg PO DAILY 09/05/15 Levothyroxine [Synthroid -] 75 mcg PO DAILY 09/05/15 Lovastatin 20 mg PO DAILY 09/05/15 Alendronate Sodium [Binosto] 70 mg PO WEEKLY 09/06/15 Omeprazole [Prilosec] 20 mg PO BID 12/17/15 Aripiprazole [Abilify] 20 mg PO DAILY 07/04/16 Montelukast Na [Singulair -] 10 mg PO HS 07/04/16 Albuterol 2.5/Ipratropium 0.5 [Duoneb -] 1 amp NEB Q4H PRN #0 amp 08/12/16 Acetaminophen [Tylenol] 325 mg PO QID PRN 09/18/16 Aripiprazole [Abilify] 20 mg PO DAILY 09/18/16 Ascorbate Calcium [Vitamin C] 500 mg PO DAILY 09/18/16 Calcium Carb/Vitamin D3/Vit K1 [Calcium + D Soft Chewable Tab] 1 each PO DAILY 09/18/16 Sodium Chloride 1,000 mg PO TID 09/18/16 Valproate Sodium [Depakene -] 25 ml PO HS 09/18/16 Amoxicillin/Potassium Clav [Amox-Clav 875-125 mg Tablet] 1 each PO BID #8 tablet 09/24/16 This patient is new to me today: No Emergency Visit: Yes ED Registration Date: 09/18/16 Care time: The patient presented to the Emergency Department on the above date and was hospitalized for further evaluation of their emergent condition. Critical Care patient: No - Discharge Referral Referred to [facility] Med P.C.: No
[2016-09-24 08:35] LABS: BILIRUBIN,TOTAL 0.3 mg/dL (0.2-1.0); TOT PROT 6.3 g/dl (6.4-8.2)
--- NOTE | 2016-09-24 09:06 | PN ---
Progress Note (short form) - Note Progress Note: NAD. No acute events overnight. Afebrile. Intake & Output 09/21/16 09/22/16 09/23/16 09/24/16 23:59 23:59 23:59 23:59 Intake Total 900 1472 1420 230 Balance 900 1472 1420 230 Weight 110 lb 107 lb 6.4 oz 107 lb 9.6 oz 108 lb 4.8 oz Last Vital Signs Temp Pulse Resp BP Pulse Ox 98.6 F 78 18 152/92 95 09/24/16 06:00 09/24/16 06:00 09/24/16 06:00 09/24/16 06:00 09/23/16 21:00 Active Medications Acetaminophen (Tylenol -) 650 mg PO Q4H PRN PRN Reason: FEVER OR PAIN Last Admin: 09/23/16 23:02 Dose: 650 mg Albuterol/Ipratropium (Duoneb -) 1 amp NEB Q4H PRN PRN Reason: SHORTNESS OF BREATH Last Admin: 09/21/16 10:15 Dose: 1 amp Aripiprazole (Abilify) 20 mg PO HS [facility] Last Admin: 09/23/16 22:59 Dose: 20 mg Ascorbic Acid (Vitamin C -) 500 mg PO DAILY [facility] Last Admin: 09/23/16 11:44 Dose: 500 mg Atorvastatin Calcium (Lipitor -) 10 mg PO HS [facility] Last Admin: 09/23/16 23:01 Dose: 10 mg Buspirone HCl (Buspar -) 15 mg PO TID [facility] Last Admin: 09/24/16 06:45 Dose: 15 mg Calcium Carbonate/Cholecalciferol (Os-Christian 500+D -) 1 tab PO DAILY [facility] Last Admin: 09/23/16 11:43 Dose: 1 tab Docusate Sodium (Colace -) 100 mg PO DAILY [facility] Enoxaparin Sodium (Lovenox -) 40 mg SQ DAILY [facility] Last Admin: 09/23/16 11:44 Dose: 40 mg Piperacillin Sod/Tazobactam Sod (Zosyn 3.375gm Ivpb (Pre-Docked)) 50 mls @ 100 mls/hr IVPB Q8H-IV [facility] Last Admin: 09/24/16 02:19 Dose: 100 mls/hr Levothyroxine Sodium (Synthroid -) 75 mcg PO ACBK [facility] Last Admin: 09/24/16 06:46 Dose: 75 mcg Loratadine (Claritin -) 10 mg PO DAILY [facility] Last Admin: 09/23/16 11:43 Dose: 10 mg Montelukast Sodium (Singulair -) 10 mg PO HS [facility] Last Admin: 09/23/16 23:02 Dose: 10 mg Ondansetron HCl (Zofran Injection) 4 mg IVPB Q4H PRN PRN Reason: NAUSEA Pantoprazole Sodium (Protonix -) 20 mg PO BID [facility] Last Admin: 09/23/16 23:01 Dose: 20 mg Sodium Chloride (Sodium Chloride Tablet -) 1 gm PO TID [facility] Last Admin: 09/24/16 06:46 Dose: 1 gm Valproate Sodium (Depakene -) 1,250 mg PO [facility] Last Admin: 09/23/16 23:01 Dose: 1,250 mg Constitutional: Yes: NAD Eyes: Yes: Conjunctiva Clear, EOM Intact HENT: Yes: Atraumatic, Normocephalic Neck: Yes: Supple, Trachea Midline Cardiovascular: Yes: Regular Rate and Rhythm Respiratory: Yes: Scattered Bibasilar rhonchi ...Clubbing: No Gastrointestinal: Yes: Normal Bowel Sounds, Soft. No: Tenderness Peripheral Pulses WNL: No Laboratory Results - last 24 hr 09/23/16 09/23/16 09/24/16 06:05 07:00 06:20 WBC 8.0 RBC 3.33 L Hgb 10.6 L Hct 31.5 L MCV 94.4 MCHC 33.8 RDW 22.0 H Plt Count 332 MPV 7.9 Neutrophils % 28.0 L D Y Lymphocytes % 21.0 D Y Monocytes % 8.0 Eosinophils % 6.0 H D Band Neutrophils 9.0 D Metamyelocytes 10 H Myelocytes 16 H Differential Comment Manual diff done Reactive Lymphocytes 2 D Sodium Cancelled Potassium Cancelled Chloride Cancelled Carbon Dioxide Cancelled Anion Gap Cancelled BUN Cancelled Creatinine Cancelled Creat Clearance w eGFR Cancelled Random Glucose Cancelled Calcium Cancelled Total Bilirubin Cancelled AST Cancelled ALT Cancelled Alkaline Phosphatase Cancelled Total Protein Cancelled Albumin Cancelled 09/24/16 06:20 WBC RBC Hgb Hct MCV MCHC RDW Plt Count MPV Neutrophils % Lymphocytes % Monocytes % Eosinophils % Band Neutrophils Metamyelocytes Myelocytes Differential Comment Reactive Lymphocytes Sodium 139 Potassium 4.8 Chloride 102 Carbon Dioxide 32 Anion Gap 5 L BUN 13 Creatinine 1.0 Creat Clearance w eGFR 58.45 Random Glucose 72 L D Calcium 8.2 L Total Bilirubin 0.3 D AST 15 ALT 9 L D Alkaline Phosphatase 57 D Total Protein 6.3 L Albumin 2.4 L Problem List - Problems (1) Pneumonia Code(s): J18.9 - PNEUMONIA, UNSPECIFIED ORGANISM Qualifiers: Pneumonia type: due to unspecified organism Laterality: right Lung location: upper lobe of lung Qualified Code(s): J18.9 - Pneumonia, unspecified organism (2) Severe sepsis Code(s): A41.9 - SEPSIS, UNSPECIFIED ORGANISM R65.20 - SEVERE SEPSIS WITHOUT SEPTIC SHOCK (3) Lactic acidosis Code(s): E87.2 - ACIDOSIS (4) Hyponatremia Code(s): E87.1 - HYPO-OSMOLALITY AND HYPONATREMIA (5) Hypothyroidism Code(s): E03.9 - HYPOTHYROIDISM, UNSPECIFIED Qualifiers: Hypothyroidism type: acquired Qualified Code(s): E03.9 - Hypothyroidism, unspecified (6) Mental retardation Code(s): F79 - UNSPECIFIED INTELLECTUAL DISABILITIES Assessment/Plan Recurrent Pneumonia (?) Aspiration Severe Sepsis Lactic Acidosis Mental Retardation Hypothyroidism - ABX per ID -> PO - aspiration precautions - PO as tolerated - DVT prophylaxis - D/C planning Dr Joshua
[2016-09-24] MEDS ORDERED: PT OWN MED DRAWER 7, Y5N ONE (09:50)
[2016-09-24] MEDS: LORATADINE 10 MG TABLET PO SCH (09:54)
[2016-09-24] MEDS: PANTOPRAZOLE 20 MG TABLET (FP) PO SCH (09:54)
[2016-09-24] MEDS: ENOXAPARIN NA (PORCINE) 40 MG/0.4 ML DISP.SYRIN SQ SCH (09:54)
[2016-09-24] MEDS: CALCIUM 500MG/VIT-D 200 UNITS COMBO TABLET (FP) PO SCH (09:54)
[2016-09-24] MEDS: ASCORBIC ACID 500 MG TABLET (FP) PO SCH (09:55)
[2016-09-24] MEDS ORDERED: DOCUSATE SODIUM 100 MG CAPSULE (FP) PO SCH (10:00)
[2016-09-24 11:41] LABS: METAMYELOCYTE 8 % (0-2)
--- NOTE | 2016-09-24 13:01 | PN ---
Progress Note, Physician History of Present Illness: patient doing better has remained stable - Objective Vital Signs: Vital Signs Temperature 98.6 F 09/24/16 06:00 Pulse Rate 78 09/24/16 06:00 Respiratory Rate 18 09/24/16 09:00 Blood Pressure 152/92 09/24/16 06:00 O2 Sat by Pulse Oximetry (%) 95 09/24/16 09:00 Constitutional: Yes: No Distress, Calm Neck: Yes: Supple Cardiovascular: Yes: Regular Rate and Rhythm Respiratory: Yes: Regular, CTA Bilaterally Gastrointestinal: Yes: Normal Bowel Sounds, Soft Musculoskeletal: Yes: WNL Extremities: Yes: WNL Neurological: Yes: Alert Psychiatric: Yes: Alert Labs: CBC, BMP 09/24/16 06:20 09/24/16 06:20 INR, PTT INR 1.20 (0.82-1.09) 09/18/16 08:49 Assessment/Plan Problem List - Problems (1) Pneumonia Code(s): J18.9 - PNEUMONIA, UNSPECIFIED ORGANISM Qualifiers: Pneumonia type: due to unspecified organism Laterality: right Lung location: upper lobe of lung Qualified Code(s): J18.9 - Pneumonia, unspecified organism (2) Severe sepsis Code(s): A41.9 - SEPSIS, UNSPECIFIED ORGANISM R65.20 - SEVERE SEPSIS WITHOUT SEPTIC SHOCK (3) Lactic acidosis Code(s): E87.2 - ACIDOSIS (4) Hyponatremia Code(s): E87.1 - HYPO-OSMOLALITY AND HYPONATREMIA (5) Hypothyroidism Code(s): E03.9 - HYPOTHYROIDISM, UNSPECIFIED Qualifiers: Hypothyroidism type: acquired Qualified Code(s): E03.9 - Hypothyroidism, unspecified (6) Mental retardation Code(s): F79 - UNSPECIFIED INTELLECTUAL DISABILITIES plan oral abx as planned rest as per priamry team
== END 2016-09-24 12:55 | disposition home or self-care (01) | DRG 871 ==
LOC: FER 08:17 → JICU 12:19 → J8W 09-20 20:17
PROVIDERS: ADMIT Internal Medicine; ATTEND Nurse Practitioner Family
DX: A41.9 Sepsis, unspecified organism (principal); J69.0 Pneumonitis due to inhalation of food and vomit; F72 Severe intellectual disabilities; E87.2 Acidosis; E87.1 Hypo-osmolality and hyponatremia; Q90.9 Down syndrome, unspecified; E03.9 Hypothyroidism, unspecified; J45.909 Unspecified asthma, uncomplicated; F91.9 Conduct disorder, unspecified; E78.5 Hyperlipidemia, unspecified; E87.5 Hyperkalemia
CPT/HCPCS: 36415; 71010-TC; 80048; 80053; 81003; 81015; 82550; 82803; 83605; 83735; 84100; 84443; 84484; 85025; 85610; 85730; 86850; 86900; 86901; 87040; 87086; 87254; 87804; 93005; 94640; 99283-25; J1644

== ENCOUNTER 2016-10-15 13:04 | Inpatient (IN) | payer OTHER ==
[2016-10-15 13:22] VITALS: BMI 19.7
--- NOTE | 2016-10-15 13:36 | PDOC ---
History of Present Illness - General Chief Complaint: SIRS, Suspected/Possible Stated Complaint: FEVER Time Seen by Provider: 10/15/16 13:26 History Source: Patient Exam Limitations: No Limitations - History of Present Illness Initial Comments: 10/15/16 13:50 Patient is a 51 year old female with PMH of Down syndrome, Hypothyroid, HTN/HLD & recurrent aspiration pneumonias who presents to ED with fever. She is a resident of [facility]. Patient is unable to give any history or answer any questions due to her condition. She was sent to ED with a 102.9 fever and O2 saturation of 87%. She has been seen multiple times in last 6months for recurrent pneumonia, attributed to aspiration. She is at her baseline mental status. Past History - Travel Traveled outside of the country in the last 30 days: No Close contact w/someone who was outside of country & ill: No - Past Medical History Allergies/Adverse Reactions: Allergies Allergy/AdvReac Type Severity Reaction Status Date / Time naltrexone HCl [From Trexan] Allergy Unknown Verified 10/15/16 13:12 Home Medications: Ambulatory Orders Buspirone HCl [Buspar -] 15 mg PO TID 09/05/15 Cetirizine HCl 10 mg PO HS 09/05/15 Levothyroxine [Synthroid -] 75 mcg PO DAILY 09/05/15 Lovastatin 20 mg PO DAILY 09/05/15 Alendronate Sodium [Binosto] 70 mg PO WEEKLY 09/06/15 Omeprazole [Prilosec] 20 mg PO BID 12/17/15 Montelukast Na [Singulair -] 10 mg PO HS 07/04/16 Acetaminophen [Tylenol] 325 mg PO QID PRN 09/18/16 Aripiprazole [Abilify] 20 mg PO DAILY 09/18/16 Ascorbate Calcium [Vitamin C] 500 mg PO DAILY 09/18/16 Sodium Chloride 1,000 mg PO TID 09/18/16 Valproate Sodium [Depakene -] 25 ml PO HS 09/18/16 Albuterol 2.5/Ipratropium 0.5 [Duoneb -] 1 amp NEB BID 10/15/16 Calcium Carbonate/Vitamin D3 [Calcium 600 + Vit D Tablet] 1 each PO DAILY Asthma: Yes Hypercholesterolemia: Yes Psychiatric Problems: Yes (INTELLECTUAL DISABILITY, BEHAVIOR DISORDER) Thyroid Disease: Yes (hypo) Other medical history: recurrent aspiration PNA - Surgical History Abdominal Surgery: No - Family Disease History Comment:: 10/15/16 13:53 unknown - Immunization History Immunization Up to Date: Yes - Psycho/Social/Smoking Cessation Hx Anxiety: No Suicidal Ideation: No Smoking History: Never smoked Have you smoked in the past 12 months: No Hx Alcohol Use: No Drug/Substance Use Hx: No Substance Use Type: None Hx Substance Use Treatment: No Review of Systems - Review of Systems Able to Perform ROS?: No Is the patient limited Marshallese proficient: Yes *Physical Exam - Vital Signs Last Vital Signs Temp Pulse Resp BP Pulse Ox 102.9 F H 117 H 15 128/68 87 L 10/15/16 13:12 10/15/16 13:12 10/15/16 13:12 10/15/16 13:12 10/15/16 13:12 - Physical Exam General Appearance: Yes: Nourished, Appropriately Dressed HEENT: positive: EOMI, WAGNER, TMs Normal, Other (no pharyngeal erythema or exudate noted on limited oral exam) Neck: positive: Trachea midline, Normal Thyroid, Supple Respiratory/Chest: positive: Other (diminished breath sounds bilaterally with mild diffuse wheezing noted). negative: Respiratory Distress, Accessory Muscle Use Cardiovascular: positive: Regular Rhythm, S1, S2, Tachycardia Gastrointestinal/Abdominal: positive: Normal Bowel Sounds, Flat, Soft Musculoskeletal: positive: Normal Inspection Extremity: positive: Normal Inspection, Normal Range of Motion Integumentary: positive: Normal Color, Dry, Warm Neurologic: positive: consumer safety inspector II-XII NML intact, Normal Mood/Affect, Motor Strength 5/5 ED Treatment Course - LABORATORY CBC & Chemistry Diagram: 10/15/16 14:29 10/15/16 14:29 Medical Decision Making - Medical Decision Making 10/15/16 13:55 Patient unable to give history of report complaints. SIRS criteria met, will order septic workup and start IVF administration. Given recent medical history, suspect pneumonia. 10/15/16 15:28 WBC 16 with left shift. Lactic acid elevated at 2.7. CXR shows RLL infiltrate ( residual from last admission). Patient started on Vancomycin, Zosyn & Tamiflu. ID Dr Wheeler consulted. Will discuss case with hospitalist service for likely admission to med-surg. 10/15/16 15:[address] Solis. Agrees with plan to admit patient. *DC/Admit/Observation/Transfer Diagnosis at time of Disposition: Acute onset sepsis - Discharge Dispostion Admit: Yes
[2016-10-15] MEDS ORDERED: SODIUM CHLORIDE 1,000 ML IV STA (13:45)
--- NOTE | 2016-10-15 14:01 | PDOC ---
Attending Attestation - Resident Resident Name: Bud Burger - ED Attending Attestation I have performed the following: I have examined & evaluated the patient, The case was reviewed & discussed with the resident, I agree w/resident's findings & plan, Exceptions are as noted - HPI HPI: 51 yo F history Down syndrome, hypothyroid, HTN, HL presents with fever, sent by senior care. Patient is nonverbal at baseline, unable to offer any history. She was noted to have a temperature of 105, O2Sat 87%. Sent for evaluation. - Physicial Exam PE: GENERAL: Awake, alert, in no acute distress. HEAD: No signs of trauma EYES: PERRLA, EOMI, sclera anicteric, conjunctiva clear ENT: Auricles normal inspection, hearing grossly normal, nares patent, oropharynx clear without exudates. Dry mucosa NECK: Normal ROM, supple, no lymphadenopathy, JVD, or masses LUNGS: Breath sounds equal, clear to auscultation bilaterally. No wheezes, and no crackles HEART: Regular rate and rhythm, normal S1 and S2, no murmurs, rubs or gallops ABDOMEN: Soft, nontender, normoactive bowel sounds. No guarding, no rebound. No masses EXTREMITIES: Normal range of motion, no edema. No clubbing or cyanosis. No cords, erythema, or tenderness NEUROLOGICAL: Limited by mental status. SKIN: Warm, Dry, normal turgor, no rashes or lesions noted. - Medical Decision Making Pt with fever, tachycardia. No obvious consolidation on CXR. Will do full sepsis workup, flu swab.
[2016-10-15 14:29] LABS: VENOUS BLOOD GAS HCO3 26.6 meq/L (22-29); VENOUS PH 7.43 (7.31-7.41)
[2016-10-15] MEDS ORDERED: ACETAMINOPHEN 1000 MG/100 ML VIAL (NON FORMULARY) IVPB ONE (14:31)
[2016-10-15] MEDS ORDERED: ACETAMINOPHEN INJECTION 100 ML IVPB ONE (14:31)
[2016-10-15 14:39] LABS: BASOPHIL 0.3 % (0-2.0); EOSINOPHIL 0.1 % (0-4.5); MCH 30.3 pg (25.7-33.7); MCHC 32.2 g/dl (32.0-36.0); NEUTROPHILS 91.5 % (42.8-82.8); PLATELET COUNT 192 K/MM3 (134-434); RDW 20.6 % (11.6-15.6); WHITE BLOOD COUNT 16.4 K/mm3 (4.0-10.0)
[2016-10-15 14:51] LABS: INR 1.01 (0.82-1.09); PROTHROMBIN TIME (PATIENT) 11.1 SEC (9.98-11.88)
[2016-10-15 14:53] LABS: ACTIVATED PTT 25.5 SECONDS (26.9-34.4)
[2016-10-15 15:08] LABS: URINE APPEARANCE CLEAR; URINE BILIRUBIN NEGATIVE (NEGATIVE); URINE BLOOD NEGATIVE (NEGATIVE); URINE COLOR STRAW; URINE GLUCOSE (UA) NEGATIVE (NEGATIVE); URINE KETONE NEGATIVE (NEGATIVE); URINE LEUK ESTERASE NEGATIVE (NEGATIVE); URINE NITRITE NEGATIVE (NEGATIVE); URINE PROTEIN NEGATIVE (NEGATIVE); URINE UROBILINOGEN NEGATIVE E.U./dl (0.2-1.0)
[2016-10-15 15:17] LABS: ALBUMIN 3.5 g/dl (3.4-5.0); ANION GAP 12 (8-16); BILIRUBIN,TOTAL 0.3 mg/dL (0.2-1.0); CALCIUM 8.9 mg/dL (8.5-10.1); CO2 26 mmol/L (21-32); GLUCOSE,RANDOM 120 mg/dL (74-106); SGOT/AST 25 U/L (15-37)
[2016-10-15 15:20] LABS: ALK PHOS 78 U/L (45-117); SGPT/ALT 18 U/L (12-78); TROPONIN I < 0.02 ng/ml (0.00-0.05)
[2016-10-15] MEDS ORDERED: VANCOMYCIN 1,000 MG in DEXTROSE 5%-WATER - 250 ML IVPB ONE (15:27)
[2016-10-15] MEDS ORDERED: VANCOMYCIN 1 GRAM (PRE-DOCKED) 250 ML IVPB ONE (15:32)
[2016-10-15] MEDS ORDERED: PIPERACILLIN/TAZOB 3.375 GM 50 ML IVPB ONE (15:33)
[2016-10-15] MEDS: PIPERACILLIN/TAZOB 3.375 GM/50 ML PRE-DOCKED IVPB SCH (15:43)
--- NOTE | 2016-10-15 16:21 | HP ---
PCP: Emery Cadet CHIEF COMPLAINT: Fever HISTORY OF PRESENT ILLNESS: This is a 51-year-old woman who was brought in to the ER today because she was noted to have a fever. She is unable to provide a history. She has a history of aspiration and recurrent pneumonia. She was admitted here 09/18-09/24 with sepsis secondary to aspiration pneumonia. PAST MEDICAL HISTORY Hyperlipidemia Hypothyroidism Hyponatremia Down syndrome PAST SURGICAL HISTORY Unobtainable Allergies naltrexone HCl [From Trexan] Allergy (Unknown, Verified 10/15/16 13:12) HOME MEDICATIONS 3 Medication Instructions Recorded Buspirone HCl [Buspar -] 15 mg PO TID 09/05/15 Cetirizine HCl 10 mg PO HS 09/05/15 Levothyroxine [Synthroid -] 75 mcg PO DAILY 09/05/15 Lovastatin 20 mg PO DAILY 09/05/15 Alendronate Sodium [Binosto] 70 mg PO WEEKLY 09/06/15 Omeprazole [Prilosec] 20 mg PO BID 12/17/15 Montelukast Na [Singulair -] 10 mg PO HS 07/04/16 Acetaminophen [Tylenol] 325 mg PO QID PRN 09/18/16 Aripiprazole [Abilify] 20 mg PO DAILY 09/18/16 Ascorbate Calcium [Vitamin C] 500 mg PO DAILY 09/18/16 Sodium Chloride 1,000 mg PO TID 09/18/16 Valproate Sodium [Depakene -] 25 ml PO HS 09/18/16 Albuterol 2.5/Ipratropium 0.5 1 amp NEB BID 10/15/16 [Duoneb -] Calcium Carbonate/Vitamin D3 1 each PO DAILY 10/15/16 [Calcium 600 + Vit D Tablet] Social History: Smoking: Never smoked Alcohol: None Drugs: None Recent Travel: No Family History: Unobtainable REVIEW OF SYSTEMS Unobtainable PHYSICAL EXAMINATION Vital Signs Period Temp Pulse Resp BP Sys/Chinchilla Pulse Ox Last 24 Hr 102.9 F 111-117 15-18 128/68 87-98 GENERAL: Awake, alert, non-verbal, in no acute distress. HEAD: Normal with no signs of trauma. EYES: Pupils equal, round and reactive to light, sclerae anicteric, conjunctivae clear. EARS, NOSE, THROAT: Ears normal, nares patent, oropharynx clear without exudates. Moist mucous membranes. NECK: Normal range of motion, supple without lymphadenopathy, JVD, or masses. LUNGS: Breath sounds equal, bibasilar crackles. No wheezes. No accessory muscle use. HEART: Tachycardic, normal S1 and S2, (+) 2/6 systolic murmur. ABDOMEN: Soft, no apparent tenderness, not distended, normoactive bowel sounds, no guarding, no rebound, no masses. No hepatomegaly or splenomegaly. MUSCULOSKELETAL: Normal range of motion at all joints. No bony deformities or tenderness. No CVA tenderness. UPPER EXTREMITIES: 2+ pulses, warm, well-perfused. No cyanosis. No clubbing. Cap refill <2 seconds. No peripheral edema. LOWER EXTREMITIES: 2+ pulses, warm, well-perfused. No calf tenderness. No peripheral edema. NEUROLOGICAL: Unable to assess. PSYCHIATRIC: Unable to assess. SKIN: Fine erythematous papular rash on both legs with excoriations. Laboratory Results - last 24 hr 10/15/16 10/15/16 10/15/16 14:20 14:29 14:29 WBC 16.4 H D RBC 4.34 D Hgb 13.1 D Hct 40.8 D MCV 94.0 MCHC 32.2 RDW 20.6 H Plt Count 192 D MPV 9.0 D Neutrophils % 91.5 H D Lymphocytes % 3.3 L D Monocytes % 4.8 Eosinophils % 0.1 D Basophils % 0.3 INR 1.01 D PTT (Actin FS) 25.5 L VBG pH 7.43 H POC VBG pCO2 40.9 L POC VBG pO2 53.3 H D Sodium Potassium Chloride Carbon Dioxide Anion Gap BUN Creatinine Creat Clearance w eGFR Random Glucose Lactic Acid Calcium Total Bilirubin AST ALT Alkaline Phosphatase Creatine Kinase Troponin I Total Protein Albumin Urine Color Urine Appearance Urine pH Ur Specific [place] Urine Protein Urine Glucose (UA) Urine Ketones Urine Blood Urine Nitrite Urine Bilirubin Urine Urobilinogen Ur Leukocyte Esterase Blood Type Antibody Screen Spec Expiration Date 10/15/16 10/15/16 10/15/16 14:29 14:29 14:29 WBC RBC Hgb Hct MCV MCHC RDW Plt Count MPV Neutrophils % Lymphocytes % Monocytes % Eosinophils % Basophils % INR PTT (Actin FS) VBG pH POC VBG pCO2 POC VBG pO2 Sodium 136 Potassium 4.5 Chloride 98 Carbon Dioxide 26 Anion Gap 12 BUN 18 D Creatinine 1.0 Creat Clearance w eGFR 58.22 Random Glucose 120 H D Lactic Acid 2.725 H* Calcium 8.9 Total Bilirubin 0.3 AST 25 D ALT 18 D Alkaline Phosphatase 78 D Creatine Kinase 47 Troponin I < 0.02 Total Protein 9.0 H D Albumin 3.5 D Urine Color Urine Appearance Urine pH Ur Specific [place] Urine Protein Urine Glucose (UA) Urine Ketones Urine Blood Urine Nitrite Urine Bilirubin Urine Urobilinogen Ur Leukocyte Esterase Blood Type Cancelled Antibody Screen Cancelled Spec Expiration Date Cancelled 10/15/16 14:45 WBC RBC Hgb Hct MCV MCHC RDW Plt Count MPV Neutrophils % Lymphocytes % Monocytes % Eosinophils % Basophils % INR PTT (Actin FS) VBG pH POC VBG pCO2 POC VBG pO2 Sodium Potassium Chloride Carbon Dioxide Anion Gap BUN Creatinine Creat Clearance w eGFR Random Glucose Lactic Acid Calcium Total Bilirubin AST ALT Alkaline Phosphatase Creatine Kinase Troponin I Total Protein Albumin Urine Color Straw Urine Appearance Clear Urine pH 8.0 Ur Specific [place] 1.014 Urine Protein Negative Urine Glucose (UA) Negative Urine Ketones Negative Urine Blood Negative Urine Nitrite Negative Urine Bilirubin Negative Urine Urobilinogen Negative Ur Leukocyte Esterase Negative Blood Type Antibody Screen Spec Expiration Date Home Medications Medication Instructions Recorded Buspirone HCl [Buspar -] 15 mg PO TID 09/05/15 Cetirizine HCl 10 mg PO HS 09/05/15 Levothyroxine [Synthroid -] 75 mcg PO DAILY 09/05/15 Lovastatin 20 mg PO DAILY 09/05/15 Alendronate Sodium [Binosto] 70 mg PO WEEKLY 09/06/15 Omeprazole [Prilosec] 20 mg PO BID 12/17/15 Montelukast Na [Singulair -] 10 mg PO HS 07/04/16 Acetaminophen [Tylenol] 325 mg PO QID PRN 09/18/16 Aripiprazole [Abilify] 20 mg PO DAILY 09/18/16 Ascorbate Calcium [Vitamin C] 500 mg PO DAILY 09/18/16 Sodium Chloride 1,000 mg PO TID 09/18/16 Valproate Sodium [Depakene -] 25 ml PO HS 09/18/16 Albuterol 2.5/Ipratropium 0.5 1 amp NEB BID 10/15/16 [Duoneb -] Calcium Carbonate/Vitamin D3 1 each PO DAILY 10/15/16 [Calcium 600 + Vit D Tablet] Chest x-ray: Right base infiltrate. EKG: Sinus tachycardia, rate 111. ASSESSMENT/PLAN: This is a 51-year-old woman with a history of hyperlipidemia, hypothyroidism, hyponatremia, Down syndrome, aspiration, recurrent pneumonia who presented to the ER with fever. She had a temp 102.9, tachycardia 117, WBC 16.4, lactic acid 2.725. She is being admitted now for treatment of an emergent condition. 1. Sepsis secondary to healthcare-associated pneumonia, probable aspiration - Zosyn, Vancomycin given in ER - Oxygen - DuoNeb as needed - IV fluid - Recheck lactic acid - ID consult 2. History of hyponatremia - Continue sodium chloride tabs 3. Hypothyroidism - Continue Synthroid 4. Hyperlipidemia - Continue Mevacor 5. Down syndrome with severe mental retardation - Continue Jimmy Phillips BuSpar Visit type - Emergency Visit Emergency Visit: Yes ED Registration Date: 10/15/16 Care time: The patient presented to the Emergency Department on the above date and was hospitalized for further evaluation of their emergent condition. - New Patient This patient is new to me today: Yes Date on this admission: 10/15/16 - Critical Care Critical Care patient: No
[2016-10-15] MEDS ORDERED: ACETAMINOPHEN 325 MG TABLET (FP) PO PRN (16:24)
[2016-10-15] MEDS ORDERED: ALBUTEROL SO4 2.5/IPRATROPIUM 0.5 INH SOL 3 ML VIAL.NEB. NEB PRN (16:24)
[2016-10-15] MEDS ORDERED: PATIENT'S OWN MEDICATION (NON-FORMULARY) (Alendronate Sodium [Binosto] 70 MG) PO SCH (16:30)
[2016-10-15] MEDS ORDERED: ONDANSETRON 4 MG/2 ML VIAL IVPB PRN (16:54)
--- NOTE | 2016-10-15 17:44 | EKG ---
Test Reason : Blood Pressure : / mmHG Vent. Rate : 111 BPM Atrial Rate : 111 BPM P-R Int : 128 ms QRS Dur : 070 ms QT Int : 300 ms P-R-T Axes : 068 060 075 degrees QTc Int : 408 ms SINUS TACHYCARDIA MINIMAL VOLTAGE CRITERIA FOR LVH, MAY BE NORMAL VARIANT BORDERLINE ECG WHEN COMPARED WITH ECG OF 18-SEP-2016 09:16, T WAVE VARIATION Confirmed by ALBERTO FELICIANO MD ([id number]) on 10/15/2016 5:44:02 PM Referred By: Confirmed By:ALBERTO FELICIANO MD
[2016-10-15] MEDS: SODIUM CHLORIDE 1,000 ML IV SCH (20:31)
[2016-10-15] MEDS ORDERED: OSELTAMIVIR PHOSPHATE 75 MG CAPSULE PO SCH (22:00)
[2016-10-15] MEDS: VALPROATE SODIUM 250 MG/5 ML UNIT DOSE CUP PO SCH (22:15)
[2016-10-15] MEDS: ATORVASTATIN CA 10 MG TABLET (FP) PO SCH (22:17)
[2016-10-15] MEDS: busPIRone HCL 5 MG TABLET PO SCH (22:17)
[2016-10-15] MEDS: PANTOPRAZOLE 20 MG TABLET (FP) PO SCH (22:17)
[2016-10-15] MEDS: SODIUM CHLORIDE 1 GM TABLET PO SCH (22:17)
[2016-10-15] MEDS: MONTELUKAST NA 10 MG TABLET PO SCH (22:17)
[2016-10-15] MEDS: LORATADINE 10 MG TABLET PO SCH (22:17)
[2016-10-15] MEDS: HEPARIN NA (PORCINE) 5,000 UNITS/ML 1ML VIAL SQ SCH (22:18)
[2016-10-16] MEDS: PIPERACILLIN/TAZOB 3.375 GM/50 ML PRE-DOCKED IVPB SCH (02:38)
[2016-10-16] MEDS: busPIRone HCL 5 MG TABLET PO SCH ×2 (06:43→14:59)
[2016-10-16] MEDS: LEVOTHYROXINE NA 75 MCG TABLET (FP) PO SCH (06:43)
[2016-10-16] MEDS: SODIUM CHLORIDE 1,000 ML IV SCH ×2 (06:43→17:23)
[2016-10-16] MEDS: SODIUM CHLORIDE 1 GM TABLET PO SCH ×2 (06:44→14:58)
[2016-10-16] MEDS: HEPARIN NA (PORCINE) 5,000 UNITS/ML 1ML VIAL SQ SCH ×2 (06:44→14:59)
[2016-10-16 07:02] LABS: BASOPHIL 1.1 % (0-2.0); EOSINOPHIL 0.7 % (0-4.5); MCH 30.6 pg (25.7-33.7); MCHC 32.6 g/dl (32.0-36.0); MEAN CELL VOLUME 94.1 fl (80-96); MEAN PLT VOLUME 8.4 fl (7.5-11.1); PLATELET COUNT 147 K/MM3 (134-434); RDW 20.8 % (11.6-15.6); WHITE BLOOD COUNT 19.7 K/mm3 (4.0-10.0)
[2016-10-16 07:42] LABS: CALCIUM 8.1 mg/dL (8.5-10.1); CREATININE 0.7 mg/dL (0.55-1.02)
[2016-10-16] MEDS: PIPERACILLIN/TAZOB 3.375 GM 50 ML IVPB SCH ×3 (07:42→17:21)
[2016-10-16] MEDS: ASCORBIC ACID 500 MG TABLET (FP) PO SCH (09:27)
[2016-10-16] MEDS: PANTOPRAZOLE 20 MG TABLET (FP) PO SCH (09:27)
[2016-10-16] MEDS: CALCIUM 500MG/VIT-D 200 UNITS COMBO TABLET (FP) PO SCH (09:28)
[2016-10-16] MEDS ORDERED: PT OWN MED DRAWER 7, Y5N ONE ×3 (09:29→23:05)
[2016-10-16] MEDS ORDERED: ARIPiprazole 20 MG TABLET PO SCH (10:00)
--- NOTE | 2016-10-16 14:11 | PN ---
Progress Note (short form) - Note Progress Note: SUBJECTIVE: The patient was seen and examined at the bedside, she is non-verbal at baseline. Lactic acid wnl Current Medications Generic Name Dose Route Start Last Admin Trade Name Freq PRN Reason Stop Dose Admin Acetaminophen 325 mg 10/15/16 16:24 Tylenol - PO Q4H PRN PAIN Albuterol/Ipratropium 1 amp 10/15/16 16:24 Duoneb - NEB Q6H PRN SHORT OF BREATH/WHEEZING Aripiprazole 20 mg 10/16/16 10:00 10/16/16 09:32 Abilify PO 20 mg DAILY WENDY Administration Ascorbic Acid 500 mg 10/16/16 10:00 10/16/16 09:27 Vitamin C - PO 500 mg DAILY WENDY Administration Atorvastatin Calcium 10 mg 10/15/16 22:00 10/15/16 22:17 Lipitor - PO 10 mg HS WENDY Administration Buspirone HCl 15 mg 10/15/16 22:00 10/16/16 06:43 Buspar - PO 15 mg TID WENDY Administration Calcium Carbonate/Cholecalciferol 1 tab 10/16/16 10:00 10/16/16 09:28 Os-Christian 500+D - PO 1 tab DAILY WENYD Administration Heparin Sodium (Porcine) 5,000 unit 10/15/16 22:00 10/16/16 06:44 Heparin - SQ 5,000 unit TID WENDY Administration Sodium Chloride 1,000 mls @ 100 mls/hr 10/15/16 17:00 10/16/16 06:43 Normal Saline - IV 100 mls/hr ASDIR WENDY Administration Piperacillin Sod/Tazobactam Sod 50 mls @ 100 mls/hr 10/16/16 02:00 10/16/16 09: 27 Zosyn 3.375gm Ivpb (Pre-Docked) IVPB 100 mls/hr Q8H-IV WENDY Administration Levothyroxine Sodium 75 mcg 10/16/16 07:00 10/16/16 06:43 Synthroid - PO 75 mcg DAILY@0700 WENDY Administration Loratadine 10 mg 10/15/16 22:00 10/15/16 22:17 Claritin - PO 10 mg HS WENDY Administration Montelukast Sodium 10 mg 10/15/16 22:00 10/15/16 22:17 Singulair - PO 10 mg HS WENDY Administration Ondansetron HCl 4 mg 10/15/16 16:54 Zofran Injection IVPB Q6H PRN NAUSEA Pantoprazole Sodium 20 mg 10/15/16 22:00 10/16/16 09:27 Protonix - PO 20 mg BID WENDY Administration Sodium Chloride 1 gm 10/15/16 22:00 10/16/16 06:44 Sodium Chloride Tablet - PO 1 gm TID WENDY Administration Valproate Sodium 1,250 mg 10/15/16 22:00 10/15/16 22:15 Depakene - PO 1,250 mg HS WENDY Administration OBJECTIVE: Vital Signs Period Temp Pulse Resp BP Sys/Chinchilla Pulse Ox Last 24 Hr 98.1 F-98.5 F 60-87 16-18 108-142/47-96 96-98 Physical Exam: Neuro: awake, alert, cn 2-12 intact Pulm: Decreased breath sounds bilaterally CV: RRR, S1S2 Abd: s nt nd + bs Ext: warm, no edema CBCD WBC 19.7 K/mm3 (4.0-10.0) H 10/16/16 06:50 RBC 3.61 M/mm3 (3.60-5.2) 10/16/16 06:50 Hgb 11.0 GM/dL (10.7-15.3) D 10/16/16 06:50 Hct 33.9 % (32.4-45.2) D 10/16/16 06:50 MCV 94.1 fl (80-96) 10/16/16 06:50 MCHC 32.6 g/dl (32.0-36.0) 10/16/16 06:50 RDW 20.8 % (11.6-15.6) H 10/16/16 06:50 Plt Count 147 K/MM3 (134-434) D 10/16/16 06:50 MPV 8.4 fl (7.5-11.1) 10/16/16 06:50 CMP Sodium 141 mmol/L (136-145) 10/16/16 06:50 Potassium 4.0 mmol/L (3.5-5.1) 10/16/16 06:50 Chloride 106 mmol/L (98-107) 10/16/16 06:50 Carbon Dioxide 28 mmol/L (21-32) 10/16/16 06:50 Anion Gap 7 (8-16) L 10/16/16 06:50 BUN 12 mg/dL (7-18) D 10/16/16 06:50 Creatinine 0.7 mg/dL (0.55-1.02) D 10/16/16 06:50 Creat Clearance w eGFR 58.22 (>60) 10/15/16 14:29 Random Glucose 84 mg/dL (74-106) D 10/16/16 06:50 Calcium 8.1 mg/dL (8.5-10.1) L 10/16/16 06:50 Total Bilirubin 0.3 mg/dL (0.2-1.0) 10/15/16 14:29 AST 25 U/L (15-37) D 10/15/16 14:29 ALT 18 U/L (12-78) D 10/15/16 14:29 Alkaline Phosphatase 78 U/L (45-117) D 10/15/16 14:29 Total Protein 9.0 g/dl (6.4-8.2) H D 10/15/16 14:29 Albumin 3.5 g/dl (3.4-5.0) D 10/15/16 14:29 CARDIAC ENZYMES Creatine Kinase 47 IU/L (26-192) 10/15/16 14:29 Troponin I < 0.02 ng/ml (0.00-0.05) 10/15/16 14:29 Microbiology 10/15/16 14:29 Nasopharyngeal Swab Respiratory Virus Panel - Preliminary 10/15/16 14:45 Urine - Urine Clean Catch Urine Culture - Preliminary Proteus Species 10/15/16 14:29 Nasopharyngeal Swab Influenza Types A,B Antigen (MARY) - Final 10/15/16 14:29 Nasopharyngeal Swab - Final Assessment: This is a 51 year old female with PMHx of hypothyroidism, hyperlipidemia, hyponatremia, Down syndrome, and recurrent pneumonia likely from aspiration who presented to the ED with fevers Plan: 1) ID: Severe sepsis 2/2 HCAP, probable aspiration - WBC worsening - Afebrile - Lactic acid resolved - Continue Zosyn per ID - F/u ID consult 2) Endocrine: Hypothyroidism - Continue Synthroid 3) Cardiology: Hyperlipidemia - Continue Lipitor 4) Down syndrome with severe mental retardation - Continue Depakene, Abilify, BuSpar 5) F/E/N: - Monitor electrolytes - Dysphagia pureed with honey thick liquids 6) Prophylaxis: - Heparin 5,000u sq tid - OOB ambulating 7) Dispo: - Requires continued inpatient care CODE STATUS: FULL CODE Visit type - Emergency Visit Emergency Visit: Yes ED Registration Date: 10/15/16 Care time: The patient presented to the Emergency Department on the above date and was hospitalized for further evaluation of their emergent condition. - New Patient This patient is new to me today: Yes Date on this admission: 10/16/16 - Critical Care Critical Care patient: No
--- NOTE | 2016-10-16 16:07 | CONSULT ---
Consult Consult Specialty:: infectious diseases Reason for Consultation:: pneumonia - History of Present Illness Chief Complaint: feve cough History of Present Illness: 51-year-old woman who was brought in because she was noted to have a fever. 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) Pulmonary: Yes: Pneumonia Gastrointestinal: Yes: Other (see CT-chest results regarding esophageal dilation ) Endocrine: Yes: Hypothyroidism - Alcohol/Substance Use Hx Alcohol Use: No History of Substance Use: reports: None - Smoking History Smoking history: Never smoked Have you smoked in the past 12 months: No - Social History ADL: Support Services Occupation: disabled History of Recent Travel: No Home Medications - Allergies Allergies/Adverse Reactions: Allergies Allergy/AdvReac Type Severity Reaction Status Date / Time naltrexone HCl [From Trexan] Allergy Unknown Verified 10/15/16 13:12 - Home Medications Home Medications: Ambulatory Orders Buspirone HCl [Buspar -] 15 mg PO TID 09/05/15 Cetirizine HCl 10 mg PO HS 09/05/15 Levothyroxine [Synthroid -] 75 mcg PO DAILY 09/05/15 Lovastatin 20 mg PO DAILY 09/05/15 Alendronate Sodium [Binosto] 70 mg PO WEEKLY 09/06/15 Omeprazole [Prilosec] 20 mg PO BID 12/17/15 Montelukast Na [Singulair -] 10 mg PO HS 07/04/16 Acetaminophen [Tylenol] 325 mg PO Q6H PRN 09/18/16 Aripiprazole [Abilify] 20 mg PO DAILY 09/18/16 Ascorbate Calcium [Vitamin C] 500 mg PO DAILY 09/18/16 Sodium Chloride 1,000 mg PO TID 09/18/16 Valproate Sodium [Depakene -] 25 ml PO HS 09/18/16 Albuterol 2.5/Ipratropium 0.5 [Duoneb -] 1 amp NEB BID 10/15/16 Calcium Carbonate/Vitamin D3 [Calcium 600 + Vit D Tablet] 1 each PO DAILY Review of Systems Unable to obtain ROS, reason: unable to obtain Physical Exam Vital Signs: Vital Signs Temperature 100.0 F H 10/16/16 14:17 Pulse Rate 85 10/16/16 14:17 Respiratory Rate 21 10/16/16 14:17 Blood Pressure 121/68 10/16/16 14:17 O2 Sat by Pulse Oximetry (%) 96 10/16/16 09:00 Constitutional: Yes: Well Nourished, No Distress, Calm HENT: Yes: Atraumatic Neck: Yes: Supple, Trachea Midline Cardiovascular: Yes: Regular Rate and Rhythm Respiratory: Yes: Regular, Poor Air Entry, Rhonchi Gastrointestinal: Yes: Normal Bowel Sounds, Soft Musculoskeletal: Yes: WNL Extremities: Yes: WNL Integumentary: Yes: WNL Wound/Incision: Yes: Other Neurological: Yes: Alert Psychiatric: Yes: Alert Labs: CBC, BMP 10/16/16 06:50 10/16/16 06:50 Imaging - Results Chest X-ray: Report Reviewed, Image Reviewed Assessment/Plan 1. Sepsis secondary to healthcare-associated pneumonia, probable aspiratio 2. History of hyponatremia 3. Hypothyroidism 4. Hyperlipidemia 5. Down syndrome with severe mental retardation patient reeived vanco and zosyn plan [place] top vanco continue zosyn incentive mason rest as per primary
[2016-10-17] MEDS: PANTOPRAZOLE 20 MG TABLET (FP) PO SCH ×3 (00:18→21:18)
[2016-10-17] MEDS: HEPARIN NA (PORCINE) 5,000 UNITS/ML 1ML VIAL SQ SCH ×4 (00:18→21:17)
[2016-10-17] MEDS: MONTELUKAST NA 10 MG TABLET PO SCH ×2 (00:25→21:19)
[2016-10-17] MEDS: LORATADINE 10 MG TABLET PO SCH ×2 (00:25→21:19)
[2016-10-17] MEDS: ATORVASTATIN CA 10 MG TABLET (FP) PO SCH ×2 (00:25→21:18)
[2016-10-17] MEDS: SODIUM CHLORIDE 1 GM TABLET PO SCH ×4 (00:27→21:17)
[2016-10-17] MEDS ORDERED: PANTOPRAZOLE SOD 40 MG SUSPENSION PACKET PO SCH (00:35)
[2016-10-17] MEDS: busPIRone HCL 5 MG TABLET PO SCH ×4 (00:42→21:17)
[2016-10-17] MEDS: VALPROATE SODIUM 250 MG/5 ML UNIT DOSE CUP PO SCH ×2 (00:43→21:19)
[2016-10-17] MEDS: PIPERACILLIN/TAZOB 3.375 GM 50 ML IVPB SCH ×3 (03:22→17:39)
[2016-10-17] MEDS: SODIUM CHLORIDE 1,000 ML IV SCH (05:32)
[2016-10-17 07:40] LABS: BASOPHIL 0.6 % (0-2.0); EOSINOPHIL 0.7 % (0-4.5); MCH 30.8 pg (25.7-33.7); MCHC 32.8 g/dl (32.0-36.0); MEAN CELL VOLUME 93.8 fl (80-96); MEAN PLT VOLUME 8.9 fl (7.5-11.1); NEUTROPHILS 77.2 % (42.8-82.8); PLATELET COUNT 148 K/MM3 (134-434); RDW 20.3 % (11.6-15.6); WHITE BLOOD COUNT 13.5 K/mm3 (4.0-10.0)
[2016-10-17] MEDS: LEVOTHYROXINE NA 75 MCG TABLET (FP) PO SCH (07:48)
[2016-10-17] MEDS ORDERED: PT OWN MED DRAWER 7, Y5N ONE ×2 (08:44→15:12)
[2016-10-17] MEDS: ASCORBIC ACID 500 MG TABLET (FP) PO SCH (09:23)
[2016-10-17] MEDS: CALCIUM 500MG/VIT-D 200 UNITS COMBO TABLET (FP) PO SCH (09:23)
[2016-10-17] MEDS: ARIPiprazole 10 MG TABLET PO SCH (09:23)
--- NOTE | 2016-10-17 14:28 | PN ---
Progress Note (short form) - Note Progress Note: SUBJECTIVE: The patient was seen and examined ambulating the halls with her aid. Low grade temps overnight Hgb 13.1->9.7, on IV fluids, may be dilutional. Will d/c IV fluids, patient tolerating po, and recheck in AM. Current Medications Generic Name Dose Route Start Last Admin Trade Name Freq PRN Reason Stop Dose Admin Acetaminophen 325 mg 10/15/16 16:24 10/17/16 00:17 Tylenol - PO 325 mg Q4H PRN Administration PAIN Albuterol/Ipratropium 1 amp 10/15/16 16:24 Duoneb - NEB Q6H PRN SHORT OF BREATH/WHEEZING Aripiprazole 20 mg 10/17/16 10:00 10/17/16 09:23 Abilify PO 20 mg DAILY WENDY Administration Ascorbic Acid 500 mg 10/16/16 10:00 10/17/16 09:23 Vitamin C - PO 500 mg DAILY WENDY Administration Atorvastatin Calcium 10 mg 10/15/16 22:00 10/17/16 00:25 Lipitor - PO 10 mg HS WENDY Administration Buspirone HCl 15 mg 10/15/16 22:00 10/17/16 07:47 Buspar - PO 15 mg TID WENDY Administration Calcium Carbonate/Cholecalciferol 1 tab 10/16/16 10:00 10/17/16 09:23 Os-Christian 500+D - PO 1 tab DAILY WENDY Administration Heparin Sodium (Porcine) 5,000 unit 10/15/16 22:00 10/17/16 07:47 Heparin - SQ 5,000 unit TID WENDY Administration Piperacillin Sod/Tazobactam Sod 50 mls @ 100 mls/hr 10/16/16 02:00 10/17/16 09: 22 Zosyn 3.375gm Ivpb (Pre-Docked) IVPB 100 mls/hr Q8H-IV WENDY Administration Levothyroxine Sodium 75 mcg 10/16/16 07:00 10/17/16 07:48 Synthroid - PO 75 mcg DAILY@0700 WENDY Administration Loratadine 10 mg 10/15/16 22:00 10/17/16 00:25 Claritin - PO 10 mg HS WENDY Administration Montelukast Sodium 10 mg 10/15/16 22:00 10/17/16 00:25 Singulair - PO 10 mg HS WENDY Administration Ondansetron HCl 4 mg 10/15/16 16:54 Zofran Injection IVPB Q6H PRN NAUSEA Pantoprazole Sodium 20 mg 10/17/16 09:26 10/17/16 12:04 Protonix - PO Not Given BID WENDY Sodium Chloride 1 gm 10/15/16 22:00 10/17/16 07:47 Sodium Chloride Tablet - PO 1 gm TID WENDY Administration Valproate Sodium 1,250 mg 10/15/16 22:00 10/17/16 00:43 Depakene - PO 1,250 mg HS WENDY Administration OBJECTIVE: Vital Signs Period Temp Pulse Resp BP Sys/Chinchilla Pulse Ox Last 24 Hr 98.7 F-100.1 F 74-83 18-20 99-134/47-73 96 Physical Exam: Neuro: awake, alert, cn 2-12 intact Pulm: Decreased breath sounds bilaterally CV: RRR, S1S2 Abd: s nt nd + bs Ext: warm, no edema CBCD WBC 13.5 K/mm3 (4.0-10.0) H D 10/17/16 07:00 RBC 3.16 M/mm3 (3.60-5.2) L 10/17/16 07:00 Hgb 9.7 GM/dL (10.7-15.3) L D 10/17/16 07:00 Hct 29.7 % (32.4-45.2) L 10/17/16 07:00 MCV 93.8 fl (80-96) 10/17/16 07:00 MCHC 32.8 g/dl (32.0-36.0) 10/17/16 07:00 RDW 20.3 % (11.6-15.6) H 10/17/16 07:00 Plt Count 148 K/MM3 (134-434) 10/17/16 07:00 MPV 8.9 fl (7.5-11.1) 10/17/16 07:00 CMP Sodium 141 mmol/L (136-145) 10/16/16 06:50 Potassium 4.0 mmol/L (3.5-5.1) 10/16/16 06:50 Chloride 106 mmol/L (98-107) 10/16/16 06:50 Carbon Dioxide 28 mmol/L (21-32) 10/16/16 06:50 Anion Gap 7 (8-16) L 10/16/16 06:50 BUN 12 mg/dL (7-18) D 10/16/16 06:50 Creatinine 0.7 mg/dL (0.55-1.02) D 10/16/16 06:50 Creat Clearance w eGFR 58.22 (>60) 10/15/16 14:29 Random Glucose 84 mg/dL (74-106) D 10/16/16 06:50 Calcium 8.1 mg/dL (8.5-10.1) L 10/16/16 06:50 Total Bilirubin 0.3 mg/dL (0.2-1.0) 10/15/16 14:29 AST 25 U/L (15-37) D 10/15/16 14:29 ALT 18 U/L (12-78) D 10/15/16 14:29 Alkaline Phosphatase 78 U/L (45-117) D 10/15/16 14:29 Total Protein 9.0 g/dl (6.4-8.2) H D 10/15/16 14:29 Albumin 3.5 g/dl (3.4-5.0) D 10/15/16 14:29 CARDIAC ENZYMES Creatine Kinase 47 IU/L (26-192) 10/15/16 14:29 Troponin I < 0.02 ng/ml (0.00-0.05) 10/15/16 14:29 Microbiology 10/15/16 14:29 Blood - Peripheral Venous Blood Culture - Preliminary NO GROWTH OBTAINED AFTER 24 HOURS, INCUBATION TO CONTINUE FOR 4 DAYS. 10/15/16 14:29 Blood - Peripheral Venous Blood Culture - Preliminary NO GROWTH OBTAINED AFTER 24 HOURS, INCUBATION TO CONTINUE FOR 4 DAYS. 10/15/16 14:29 Nasopharyngeal Swab Respiratory Virus Panel - Preliminary 10/15/16 14:45 Urine - Urine Clean Catch Urine Culture - Preliminary Proteus Species 10/15/16 14:29 Nasopharyngeal Swab Influenza Types A,B Antigen (MARY) - Final 10/15/16 14:29 Nasopharyngeal Swab - Final Assessment: This is a 51 year old female with PMHx of hypothyroidism, hyperlipidemia, hyponatremia, Down syndrome, and recurrent pneumonia likely from aspiration who presented to the ED with fevers Plan: 1) ID: Severe sepsis 2/2 HCAP, probable aspiration - Low grade temps overnight - WBC trending down - Blood cultures with NGTD - Influenza A&B negative - Respiratory virus panel pending - Lactic acid resolved - Continue Zosyn per ID - Appreciate 2) Endocrine: Hypothyroidism - Continue Synthroid 3) Cardiology: Hyperlipidemia - Continue Lipitor 4) Down syndrome with severe mental retardation - Continue Jimmy Phillips BuSpar 5) F/E/N: - Monitor electrolytes - Dysphagia pureed with honey thick liquids 6) Prophylaxis: - Heparin 5,000u sq tid - OOB ambulating 7) Dispo: - Requires continued inpatient care CODE STATUS: FULL CODE Visit type - Emergency Visit Emergency Visit: Yes ED Registration Date: 10/15/16 Care time: The patient presented to the Emergency Department on the above date and was hospitalized for further evaluation of their emergent condition. - New Patient This patient is new to me today: No - Critical Care Critical Care patient: No
[2016-10-18] MEDS: PIPERACILLIN/TAZOB 3.375 GM 50 ML IVPB SCH ×3 (01:23→17:53)
[2016-10-18] MEDS: HEPARIN NA (PORCINE) 5,000 UNITS/ML 1ML VIAL SQ SCH ×3 (05:32→21:33)
[2016-10-18] MEDS: busPIRone HCL 5 MG TABLET PO SCH ×3 (05:32→21:33)
[2016-10-18] MEDS: SODIUM CHLORIDE 1 GM TABLET PO SCH ×3 (05:32→21:32)
[2016-10-18] MEDS: LEVOTHYROXINE NA 75 MCG TABLET (FP) PO SCH (06:06)
[2016-10-18 08:11] LABS: MCHC 32.8 g/dl (32.0-36.0); MEAN CELL VOLUME 94.4 fl (80-96); MEAN PLT VOLUME 9.2 fl (7.5-11.1); PLATELET COUNT 172 K/MM3 (134-434); RDW 20.3 % (11.6-15.6); WHITE BLOOD COUNT 9.8 K/mm3 (4.0-10.0)
[2016-10-18 08:35] LABS: ALBUMIN 2.4 g/dl (3.4-5.0); ALK PHOS 75 U/L (45-117); ANION GAP 8 (8-16); BILIRUBIN,TOTAL 0.2 mg/dL (0.2-1.0); CALCIUM 8.4 mg/dL (8.5-10.1); CO2 30 mmol/L (21-32); CREATININE 0.8 mg/dL (0.55-1.02); GLUCOSE,RANDOM 93 mg/dL (74-106); SGOT/AST 18 U/L (15-37); SGPT/ALT 17 U/L (12-78); TOT PROT 6.9 g/dl (6.4-8.2)
[2016-10-18 09:34] LABS: HYPOCHROMIA 1+; PLATELET ESTIMATE ADEQUATE (NORMAL); POLYCHROMASIA FEW
[2016-10-18] MEDS ORDERED: PT OWN MED DRAWER 7, Y5N ONE ×2 (09:49→14:38)
[2016-10-18] MEDS: PANTOPRAZOLE 20 MG TABLET (FP) PO SCH ×2 (09:54→21:32)
[2016-10-18] MEDS: CALCIUM 500MG/VIT-D 200 UNITS COMBO TABLET (FP) PO SCH (09:54)
[2016-10-18] MEDS: ARIPiprazole 10 MG TABLET PO SCH (09:54)
[2016-10-18] MEDS: ASCORBIC ACID 500 MG TABLET (FP) PO SCH (09:54)
--- NOTE | 2016-10-18 12:02 | PN ---
Physical Exam: SUBJECTIVE: Stopped by to examine patient a few times this morning but she was asleep. Spoke to aide who states patients did not sleep well last night. Saw patient at 1330 and now she is awake and sitting up eating her lunch. As per CATERING CONVENTION SERVICES MANAGER, pt appears at her baseline. Swallow/Speech Eval has been requested to see patient today. OBJECTIVE: Vital Signs Period Temp Pulse Resp BP Sys/Chinchilla Pulse Ox Last 24 Hr 97.3 F-98.9 F 66-82 16-20 104-151/56-95 96 GENERAL: The patient is awake, and has cognitive delays (down syndrome) HEAD: Normal with no signs of trauma. EYES: sclera anicteric, conjunctiva clear. No ptosis. ENT: Ears normal, nares patent, oropharynx clear without exudates, moist mucous membranes. NECK: Trachea midline, full range of motion, supple. LUNGS: Bilater upper lobes clear, bilateral lower lobes with diminished breath sounds. HEART: Regular rate and rhythm ABDOMEN: Soft, nontender, nondistended, normoactive bowel sounds, no guarding, no rebound, no hepatosplenomegaly, no masses. EXTREMITIES: 2+ pulses, warm, well-perfused, no edema. NEUROLOGICAL: walks with one person assist/fall risk/needs hand held assistance. PSYCH: Cognitive limits secondary to MR SKIN: Warm, dry, normal turgor, no rashes or lesions noted Laboratory Results - last 24 hr 10/18/16 10/18/16 06:00 07:30 WBC 9.8 RBC 3.38 L Hgb 10.5 L Hct 31.9 L MCV 94.4 MCHC 32.8 RDW 20.3 H Plt Count 172 MPV 9.2 Neutrophils % 78.0 Lymphocytes % 14.0 Monocytes % 7.0 Eosinophils % 1.0 Myelocytes 1 D Platelet Estimate Adequate Platelet Comment No clumping noted Polychromasia Few Hypochromic-Microcytic 1+ Sodium 140 Potassium 4.0 Chloride 102 Carbon Dioxide 30 Anion Gap 8 BUN 7 D Creatinine 0.8 Creat Clearance w eGFR > 60 Random Glucose 93 Calcium 8.4 L Total Bilirubin 0.2 D AST 18 D ALT 17 Alkaline Phosphatase 75 Total Protein 6.9 D Albumin 2.4 L D Active Medications Generic Name Dose Route Start Last Admin Trade Name Freq PRN Reason Stop Dose Admin Acetaminophen 325 mg 10/15/16 16:24 10/17/16 00:17 Tylenol - PO 325 mg Q4H PRN Administration PAIN Albuterol/Ipratropium 1 amp 10/15/16 16:24 Duoneb - NEB Q6H PRN SHORT OF BREATH/WHEEZING Aripiprazole 20 mg 10/17/16 10:00 10/18/16 09:54 Abilify PO 20 mg DAILY WENDY Administration Ascorbic Acid 500 mg 10/16/16 10:00 10/18/16 09:54 Vitamin C - PO 500 mg DAILY WENDY Administration Atorvastatin Calcium 10 mg 10/15/16 22:00 10/17/16 21:18 Lipitor - PO 10 mg HS WENDY Administration Buspirone HCl 15 mg 10/15/16 22:00 10/18/16 05:32 Buspar - PO 15 mg TID WENDY Administration Calcium Carbonate/Cholecalciferol 1 tab 10/16/16 10:00 10/18/16 09:54 Os-Christian 500+D - PO 1 tab DAILY WENDY Administration Heparin Sodium (Porcine) 5,000 unit 10/15/16 22:00 10/18/16 05:32 Heparin - SQ 5,000 unit TID WENDY Administration Piperacillin Sod/Tazobactam Sod 50 mls @ 100 mls/hr 10/16/16 02:00 10/18/16 09: 55 Zosyn 3.375gm Ivpb (Pre-Docked) IVPB 100 mls/hr Q8H-IV WENDY Administration Levothyroxine Sodium 75 mcg 10/16/16 07:00 10/18/16 06:06 Synthroid - PO 75 mcg DAILY@0700 WENDY Administration Loratadine 10 mg 10/15/16 22:00 10/17/16 21:19 Claritin - PO 10 mg HS WENDY Administration Montelukast Sodium 10 mg 10/15/16 22:00 10/17/16 21:19 Singulair - PO 10 mg HS WENDY Administration Ondansetron HCl 4 mg 10/15/16 16:54 Zofran Injection IVPB Q6H PRN NAUSEA Pantoprazole Sodium 20 mg 10/17/16 09:26 10/18/16 09:54 Protonix - PO 20 mg BID WENDY Administration Sodium Chloride 1 gm 10/15/16 22:00 10/18/16 05:32 Sodium Chloride Tablet - PO 1 gm TID WENDY Administration Valproate Sodium 1,250 mg 10/15/16 22:00 10/17/16 21:19 Depakene - PO 1,250 mg HS WENDY Administration ASSESSMENT/PLAN: Patient is a 51 year old female (from a [facility]) with a significant past medical history of mental retardation, down syndrome, hypothyroidism and recurrent pneumonia. She was brought into to the ED on 10/15/2016 with fever of 102.9F. She was also noted to have tachycardia, leukocytosis (WBC 16.4) and lactic acid levels of 2.725. She was recently hospitalized between 09/18/2016 - 09/24/2016 with sepsis and was treated with IV Zosyn. [facility] Augmentin 875mg - 125 BID for 4 more days. Imaging: Chest xray 10/15/2016 shows residual minimal atelectatic changes/infiltrates in right lung base, medially ID: Sepsis secondary to healthcare-associated pneumonia likely due to chronic aspiration Plan: On Zosyn (day#3) as per ID Lactic Acidosis - resolved Leukocytosis - improving low grade temps on 10/16/16, afebrile overnight, Supportive care with duonebs, and oxygen as needed She is currently tolerating room air, able to ambulate without dyspnea Blood cultures with no growth to date Swallow evaluation requested for further recommendations UTI: Urine cultures - with proteus mirabilis Plan: ID following, on Zosyn Neuro: Down Syndrome/MR Plan: At baseline, no behaviour disturbances reported, needs close monitoring, has aide at bedside On Ability 20mg daily, Buspar and Depakene Hematology: Anemia - acute Plan: Likely dilutional, hmg/hmt improving Monitor trend CBC in a.m. F.E.N: Fluids: honey thickened fluids - aspiration precautions - swallow eval pending Electrolytes: Hyponatremia: resolved, on sodium tablets TID Hypothyroidism: On Synthroid 75mcgs Hyperlipidemia: on Lipitor @ hs Hyperkalemia: none on this admission Nutrition: Pureed diet, honey thickened fluids, swallow recommendations pending Prophylaxis: DVT: Heparin TID GI: Protonix 20mg BID Disposition: Continues to require inpatient hospitalization. Full Code Visit type - Emergency Visit Emergency Visit: Yes ED Registration Date: 10/15/16 Care time: The patient presented to the Emergency Department on the above date and was hospitalized for further evaluation of their emergent condition. - New Patient This patient is new to me today: No - Critical Care Critical Care patient: No - Discharge Referral [facility]erred [facility] Med P.C.: No
--- NOTE | 2016-10-18 12:24 | CONSULT ---
Admitting History and Physical - Primary Care Physician PCP: Murphy Alex - Admission History of Present Illness: History of Present Illness: "Patient is a 51 year old female with PMH of Down syndrome, Hypothyroid, HTN/ HLD & recurrent aspiration pneumonias who presents to ED with fever. She is a resident of [facility]. Patient is unable to give any history or answer any questions due to her condition. She was sent to ED with a 102.9 fever and O2 saturation of 87%. She has been seen multiple times in last 6months for recurrent pneumonia, attributed to aspiration. She is at her baseline mental status." Pt known to me from recurrent admissions. Previous admission with suspicion for retrograde aspiratrion sec intermittently impaired esoph emptying. Last MBS 08/05/16 trace aspiration on nectar. Impaired esophageal emptying, suspected to be intermittent. Retrograde aspiration risk suspected. Previous rec on 08/09/16 were trial of : Dysphagia puree, magic cup, honey thick liquid on a tsp,. a few tsp at a time,(5?),. allowing time to pass through the esophagus,. (possibly walking after PO intake),. Small amounts throughout day/ every hour. No PO intake within 2 hr of bedtime. 09/24 puree and honey on tsp. History Source: Medical Record, Caregiver Limitations to Obtaining History: Other (nonverbal. 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) Pulmonary: Yes: Pneumonia Gastrointestinal: Yes: Other (see CT-chest results regarding esophageal dilation ) Endocrine: Yes: Hypothyroidism - Smoking History Smoking history: Never smoked Have you smoked in the past 12 months: No - Alcohol/Substance Use Hx Alcohol Use: No History of Substance Use: reports: None - Social History ADL: Support Services Occupation: disabled History of Recent Travel: No History - Admission Reason For Visit: SEPSIS - Diagnostics X-ray: Report Reviewed - General Mental Status: Awake and Alert, Able to Follow Commands Attention: Intact Ability to Follow Directions: Fair Head/Neck Control: Good - Hearing Hearing: Normal Speech Evaluation - Communication Primary Language: YORUBA (ASL) Oral Expression Ability: Yes: Non-Verbal (asl) - Language/Auditory Comprehension Follows: Yes: 1 Stage Simple Commands Observation: Comprehends Conversational Speech: Yes (understands some directives ) - Swallow Evaluation/Bedside Assessment Current Nutritional Intake: Dysphagia Pureed, Honey Textured Liquids Oral Secretions: Yes: Drooling Dentition: Yes: Edentulous Facial Symmetry at Rest: Symmetrical Facial Symmetry on Retraction: Symmetrical Facial Movement: Controlled Sensation: Normal Against Resistance Opening: Normal Against Resistance Closing: Normal Pucker Lips: Normal Smile: Normal Lingual Movement: Normal Lingual Speed of Movement: Normal Lingual Movement Strgth Against Opposition: Normal Lingual Movement Characteristics: Normal Velopharyngeal Movement: Normal Laryngeal Movement: Able to Palpate, Labored,delay initiation Rate of Intake: Impulsive Bolus Size: WFL Labial Seal: WFL Oral Prep Time: WFL A-P Transit: WFL Pocketing: None Timing of Swallow: Delayed Coughing/Throat Clear: No Change in Voice: No Recommendations - Speech Evaluation, Impression/Plan Impression: I dount think pt is experiencing anterograde aspiration, especially if staff at [facility] is providing puree and honey thick liquid, slowing rate of intake, using small spoon for reduced bolus size. Per layout inspector, she is however having "full meals" which may result in retrograde aspiration if esophagus is not emptyiong in a timely manner. Previous studies have shown good esoph empting asnd also significant hangup with esoph dilatation on CT. Pt did not cough on small, controlled sips of thin liquid for me. - Dysphagia Impressions/Plan *Silent aspiration: cannot be R/O at bedside Dysphagia Treatment Plan: Safe Rate, 1/2 tsp. at a time, Other ( a few tsp at a time, allowing time to pass through the esophagus,. (possibly walking during meal, after PO intake), Alternate puree with liquid. Several SMALL meals throughout the day. Pull off some of food from tray and continue to feed 15 min later. Small amounts throughout day/every hour. No PO intake within 2 hr of bedtime.) Recommendations: GI Consult (intermittent impaired esoph emptying?), MBS w Esophagus (repeat?) - Recommendations Diet Consistency: Dysphagia Pureed, Other Medication Administration: Crushed with applesauce Liquids: Ronda Thick Supplement: Other (ensure compact)
--- NOTE | 2016-10-18 17:53 | PN ---
Progress Note, Physician History of Present Illness: patient looking better resp status bettter no complaints looks comfortable - Current Medication List Current Medications: Active Medications Acetaminophen (Tylenol -) 325 mg PO Q4H PRN PRN Reason: PAIN Last Admin: 10/17/16 00:17 Dose: 325 mg Albuterol/Ipratropium (Duoneb -) 1 amp NEB Q6H PRN PRN Reason: SHORT OF BREATH/WHEEZING Aripiprazole (Abilify) 20 mg PO DAILY [facility] Last Admin: 10/18/16 09:54 Dose: 20 mg Ascorbic Acid (Vitamin C -) 500 mg PO DAILY [facility] Last Admin: 10/18/16 09:54 Dose: 500 mg Atorvastatin Calcium (Lipitor -) 10 mg PO [facility] Last Admin: 10/17/16 21:18 Dose: 10 mg Buspirone HCl (Buspar -) 15 mg PO TID [facility] Last Admin: 10/18/16 14:41 Dose: 15 mg Calcium Carbonate/Cholecalciferol (Os-Christian 500+D -) 1 tab PO DAILY [facility] Last Admin: 10/18/16 09:54 Dose: 1 tab Heparin Sodium (Porcine) (Heparin -) 5,000 unit SQ TID [facility] Last Admin: 10/18/16 14:41 Dose: 5,000 unit Piperacillin Sod/Tazobactam Sod (Zosyn 3.375gm Ivpb (Pre-Docked)) 50 mls @ 100 mls/hr IVPB Q8H-IV [facility] Last Admin: 10/18/16 09:55 Dose: 100 mls/hr Levothyroxine Sodium (Synthroid -) 75 mcg PO DAILY@0700 [facility] Last Admin: 10/18/16 06:06 Dose: 75 mcg Loratadine (Claritin -) 10 mg PO [facility] Last Admin: 10/17/16 21:19 Dose: 10 mg Montelukast Sodium (Singulair -) 10 mg PO [facility] Last Admin: 10/17/16 21:19 Dose: 10 mg Ondansetron HCl (Zofran Injection) 4 mg IVPB Q6H PRN PRN Reason: NAUSEA Pantoprazole Sodium (Protonix -) 20 mg PO BID [facility] Last Admin: 10/18/16 09:54 Dose: 20 mg Sodium Chloride (Sodium Chloride Tablet -) 1 gm PO TID [facility] Last Admin: 10/18/16 14:41 Dose: 1 gm Valproate Sodium (Depakene -) 1,250 mg PO HS WENDY Last Admin: 10/17/16 21:19 Dose: 1,250 mg - Objective Vital Signs: Vital Signs Temperature 97.9 F 10/18/16 14:26 Pulse Rate 74 10/18/16 14:26 Respiratory Rate 16 10/18/16 14:26 Blood Pressure 106/57 10/18/16 14:26 O2 Sat by Pulse Oximetry (%) 96 10/17/16 22:00 Constitutional: Yes: No Distress, Calm Neck: Yes: Supple Cardiovascular: Yes: Regular Rate and Rhythm Respiratory: Yes: Regular, Poor Air Entry Gastrointestinal: Yes: Normal Bowel Sounds, Soft Musculoskeletal: Yes: WNL Extremities: Yes: WNL Labs: CBC, BMP 10/18/16 06:00 10/18/16 07:30 INR, PTT INR 1.01 (0.82-1.09) D 10/15/16 14:29 Assessment/Plan 1. Sepsis secondary to healthcare-associated pneumonia, probable aspiratio 2. History of hyponatremia 3. Hypothyroidism 4. Hyperlipidemia 5. Down syndrome with severe mental retardation patient reeived vanco and zosyn plan continue zosyn will deescalate by sun incentive mason aspiration precautions
[2016-10-18] MEDS: MONTELUKAST NA 10 MG TABLET PO SCH (21:32)
[2016-10-18] MEDS: ATORVASTATIN CA 10 MG TABLET (FP) PO SCH (21:32)
[2016-10-18] MEDS: LORATADINE 10 MG TABLET PO SCH (21:33)
[2016-10-18] MEDS: VALPROATE SODIUM 250 MG/5 ML UNIT DOSE CUP PO SCH (21:33)
[2016-10-19] MEDS: PIPERACILLIN/TAZOB 3.375 GM 50 ML IVPB SCH ×3 (02:27→17:49)
[2016-10-19] MEDS: LEVOTHYROXINE NA 75 MCG TABLET (FP) PO SCH (06:04)
[2016-10-19] MEDS: SODIUM CHLORIDE 1 GM TABLET PO SCH ×3 (06:04→21:15)
[2016-10-19] MEDS: HEPARIN NA (PORCINE) 5,000 UNITS/ML 1ML VIAL SQ SCH ×3 (06:04→21:16)
[2016-10-19] MEDS: BUSPIRONE HCL 10 MG, BUSPIRONE HCL 5 MG PO SCH ×3 (06:04→21:18)
[2016-10-19 08:44] LABS: MCH 31.1 pg (25.7-33.7); MEAN CELL VOLUME 94.4 fl (80-96); MEAN PLT VOLUME 9.1 fl (7.5-11.1); PLATELET COUNT 213 K/MM3 (134-434); RDW 20.3 % (11.6-15.6); WHITE BLOOD COUNT 6.8 K/mm3 (4.0-10.0)
[2016-10-19 09:23] LABS: ALBUMIN 2.4 g/dl (3.4-5.0); ALK PHOS 81 U/L (45-117); ANION GAP 6 (8-16); BILIRUBIN,TOTAL 0.2 mg/dL (0.2-1.0); CALCIUM 8.8 mg/dL (8.5-10.1); CO2 33 mmol/L (21-32); CREATININE 0.9 mg/dL (0.55-1.02); GLUCOSE,RANDOM 93 mg/dL (74-106); SGOT/AST 12 U/L (15-37); SGPT/ALT 15 U/L (12-78); TOT PROT 6.9 g/dl (6.4-8.2)
[2016-10-19] MEDS ORDERED: PT OWN MED DRAWER 7, Y5N ONE ×2 (09:37→21:03)
[2016-10-19] MEDS: CALCIUM 500MG/VIT-D 200 UNITS COMBO TABLET (FP) PO SCH (09:53)
[2016-10-19] MEDS: ASCORBIC ACID 500 MG TABLET (FP) PO SCH (09:53)
[2016-10-19] MEDS: ARIPiprazole 10 MG TABLET PO SCH (09:56)
[2016-10-19 10:30] LABS: PLATELET COMMENT2 NO CLOTTING DETECTED; PLATELET COMMENT3 FEW LARGE PLTS; PLATELET ESTIMATE ADEQUATE (NORMAL)
[2016-10-19 10:31] LABS: ANISOCYTOSIS 1+; HYPOCHROMIA 1+
--- NOTE | 2016-10-19 11:29 | PN ---
Physical Exam: SUBJECTIVE: Patient seen and examined. Patent was asleep during my exam but easily arousable. She appears comfortable at rest and in acute distress. Aide at the bedside. OBJECTIVE: GENERAL: The patient is awake, and has cognitive delays (down syndrome) HEAD: Normal with no signs of trauma. EYES: sclera anicteric, conjunctiva clear. No ptosis. ENT: Ears normal, nares patent, oropharynx clear without exudates, moist mucous membranes. NECK: Trachea midline, full range of motion, supple. LUNGS: Bilateral upper lobes clear, bilateral lower lobes with diminished breath sounds. HEART: Regular rate and rhythm ABDOMEN: Soft, nontender, nondistended, normoactive bowel sounds, no guarding, no rebound, no hepatosplenomegaly, no masses. EXTREMITIES: 2+ pulses, warm, well-perfused, no edema. NEUROLOGICAL: walks with one person assist/fall risk/needs hand held assistance. PSYCH: Cognitive limits secondary to MR SKIN: Warm, dry, normal turgor, no rashes or lesions noted Vital Signs Period Temp Pulse Resp BP Sys/Chinchilla Pulse Ox Last 24 Hr 97.9 F-98.7 F 54-75 16-188 105-120/57-86 93-95 Laboratory Results - last 24 hr 10/19/16 10/19/16 07:00 07:00 WBC 6.8 D RBC 3.59 L Hgb 11.2 Hct 33.9 MCV 94.4 MCHC 33.0 RDW 20.3 H Plt Count 213 D MPV 9.1 Neutrophils % 52.0 D Lymphocytes % 30.0 D Monocytes % 6.0 Eosinophils % 1.0 Basophils % 1.0 Band Neutrophils 9.0 D Platelet Estimate Adequate Platelet Comment No clotting detected Hypochromic-Microcytic 1+ Anisocytosis 1+ Sodium 141 Potassium 4.2 Chloride 102 Carbon Dioxide 33 H Anion Gap 6 L BUN 12 D Creatinine 0.9 Creat Clearance w eGFR > 60 Random Glucose 93 Calcium 8.8 Total Bilirubin 0.2 AST 12 L D ALT 15 Alkaline Phosphatase 81 Total Protein 6.9 Albumin 2.4 L Active Medications Generic Name Dose Route Start Last Admin Trade Name Freq PRN Reason Stop Dose Admin Acetaminophen 325 mg 10/15/16 16:24 10/17/16 00:17 Tylenol - PO 325 mg Q4H PRN Administration PAIN Albuterol/Ipratropium 1 amp 10/15/16 16:24 Duoneb - NEB Q6H PRN SHORT OF BREATH/WHEEZING Aripiprazole 20 mg 10/17/16 10:00 10/19/16 09:56 Abilify PO 20 mg DAILY WENDY Administration Ascorbic Acid 500 mg 10/16/16 10:00 10/19/16 09:53 Vitamin C - PO 500 mg DAILY WENDY Administration Atorvastatin Calcium 10 mg 10/15/16 22:00 10/18/16 21:32 Lipitor - PO 10 mg HS WENDY Administration Buspirone HCl 10 mg/ Buspirone 15 mg 10/19/16 06:00 10/19/16 06:04 HCl 5 mg PO 15 mg TID WENDY Administration Calcium Carbonate/Cholecalciferol 1 tab 10/16/16 10:00 10/19/16 09:53 Os-Christian 500+D - PO 1 tab DAILY WENDY Administration Heparin Sodium (Porcine) 5,000 unit 10/15/16 22:00 10/19/16 06:04 Heparin - SQ 5,000 unit TID WENDY Administration Piperacillin Sod/Tazobactam Sod 50 mls @ 100 mls/hr 10/16/16 02:00 10/19/16 09: 53 Zosyn 3.375gm Ivpb (Pre-Docked) IVPB 100 mls/hr Q8H-IV WENDY Administration Levothyroxine Sodium 75 mcg 10/16/16 07:00 10/19/16 06:04 Synthroid - PO 75 mcg DAILY@0700 WENDY Administration Loratadine 10 mg 10/15/16 22:00 10/18/16 21:33 Claritin - PO 10 mg HS WENDY Administration Montelukast Sodium 10 mg 10/15/16 22:00 10/18/16 21:32 Singulair - PO 10 mg HS WENDY Administration Ondansetron HCl 4 mg 10/15/16 16:54 Zofran Injection IVPB Q6H PRN NAUSEA Pantoprazole Sodium 20 mg 10/19/16 10:00 Protonix Packets For Oral Suspension - PO BID WENDY Sodium Chloride 1 gm 10/15/16 22:00 10/19/16 06:04 Sodium Chloride Tablet - PO 1 gm TID WENDY Administration Valproate Sodium 1,250 mg 10/15/16 22:00 10/18/16 21:33 Depakene - PO 1,250 mg HS WENDY Administration ASSESSMENT/PLAN: Patient is a 51 year old female (from a [facility]) with a significant past medical history of mental retardation, down syndrome, hypothyroidism and recurrent pneumonia. She was brought into to the ED on 10/15/2016 with fever of 102.9F. She was also noted to have tachycardia, leukocytosis (WBC 16.4) and lactic acid levels of 2.725. She was recently hospitalized between 09/18/2016 - 09/24/2016 with sepsis and was treated with IV Zosyn. [facility] to the [facility] to continue Augmentin 875mg - 125 BID for 4 more days. Imaging: Chest xray 10/15/2016 shows residual minimal atelectatic changes/infiltrates in right lung base, medially ID: Sepsis secondary to healthcare-associated pneumonia likely due to chronic aspiration Plan: On Zosyn (day#4) as per ID Lactic Acidosis - resolved Leukocytosis - resolved TMAX 100.1F on 10/16/16, afebrile since Supportive care with duonebs, and oxygen as needed She is currently tolerating room air, able to ambulate without dyspnea Blood cultures with no growth to date Swallow evaluation yesterday UTI: Urine cultures - with proteus mirabilis Plan: ID following, on Zosyn Neuro: Down Syndrome/MR Plan: At baseline, no behaviour disturbances reported, needs close monitoring, has aide at bedside On Ability 20mg daily, Buspar and Depakene Safety risk Hematology: Anemia - resolved Plan: Monitor trend CBC in a.m. F.E.N: Fluids: tolerating PO fluids Electrolytes: Hyponatremia: resolved, on sodium tablets TID Hypothyroidism: On Synthroid 75mcgs Hyperlipidemia: on Lipitor @ hs Hyperkalemia: none on this admission Nutrition: Dysphagia Pureed Diet Consistency: [place] Thick Supplement: Ensure compact Prophylaxis: DVT: Heparin TID GI: Protonix 20mg BID Disposition: Continues to require inpatient hospitalization. Full Code Visit type - Emergency Visit Emergency Visit: Yes ED Registration Date: 10/15/16 Care time: The patient presented to the Emergency Department on the above date and was hospitalized for further evaluation of their emergent condition. - New Patient This patient is new to me today: No - Critical Care Critical Care patient: No - Discharge Referral Referred to [facility] Med P.C.: No
[2016-10-19] MEDS: PANTOPRAZOLE SOD 40 MG SUSPENSION PACKET PO SCH ×2 (13:18→21:16)
--- NOTE | 2016-10-19 15:19 | PN ---
Progress Note, Physician History of Present Illness: stable patient now breathing better - Current Medication List Current Medications: Active Medications Acetaminophen (Tylenol -) 325 mg PO Q4H PRN PRN Reason: PAIN Last Admin: 10/17/16 00:17 Dose: 325 mg Albuterol/Ipratropium (Duoneb -) 1 amp NEB Q6H PRN PRN Reason: SHORT OF BREATH/WHEEZING Aripiprazole (Abilify) 20 mg PO DAILY [facility] Last Admin: 10/19/16 09:56 Dose: 20 mg Ascorbic Acid (Vitamin C -) 500 mg PO DAILY [facility] Last Admin: 10/19/16 09:53 Dose: 500 mg Atorvastatin Calcium (Lipitor -) 10 mg PO [facility] Last Admin: 10/18/16 21:32 Dose: 10 mg Buspirone HCl 10 mg/ Buspirone (HCl 5 mg) 15 mg PO TID [facility] Last Admin: 10/19/16 13:18 Dose: 15 mg Calcium Carbonate/Cholecalciferol (Os-Christian 500+D -) 1 tab PO DAILY [facility] Last Admin: 10/19/16 09:53 Dose: 1 tab Heparin Sodium (Porcine) (Heparin -) 5,000 unit SQ TID [facility] Last Admin: 10/19/16 13:18 Dose: 5,000 unit Piperacillin Sod/Tazobactam Sod (Zosyn 3.375gm Ivpb (Pre-Docked)) 50 mls @ 100 mls/hr IVPB Q8H-IV [facility] Last Admin: 10/19/16 09:53 Dose: 100 mls/hr Levothyroxine Sodium (Synthroid -) 75 mcg PO DAILY@0700 [facility] Last Admin: 10/19/16 06:04 Dose: 75 mcg Loratadine (Claritin -) 10 mg PO [facility] Last Admin: 10/18/16 21:33 Dose: 10 mg Montelukast Sodium (Singulair -) 10 mg PO [facility] Last Admin: 10/18/16 21:32 Dose: 10 mg Ondansetron HCl (Zofran Injection) 4 mg IVPB Q6H PRN PRN Reason: NAUSEA Pantoprazole Sodium (Protonix Packets For Oral Suspension -) 20 mg PO BID [facility] Last Admin: 10/19/16 13:18 Dose: 20 mg Sodium Chloride (Sodium Chloride Tablet -) 1 gm PO TID [facility] Last Admin: 10/19/16 13:17 Dose: 1 gm Valproate Sodium (Depakene -) 1,250 mg PO HS [facility] Last Admin: 10/18/16 21:33 Dose: 1,250 mg - Objective Vital Signs: Vital Signs Temperature 98.3 F 10/19/16 14:37 Pulse Rate 67 10/19/16 14:37 Respiratory Rate 20 10/19/16 14:37 Blood Pressure 137/63 10/19/16 14:37 O2 Sat by Pulse Oximetry (%) 93 L 10/19/16 11:13 Constitutional: Yes: No Distress, Calm Eyes: Yes: Conjunctiva Clear Cardiovascular: Yes: Regular Rate and Rhythm Respiratory: Yes: Regular, CTA Bilaterally Gastrointestinal: Yes: Normal Bowel Sounds, Soft Musculoskeletal: Yes: WNL Extremities: Yes: WNL Neurological: Yes: Alert Psychiatric: Yes: Alert Labs: CBC, BMP 10/19/16 07:00 10/19/16 07:00 INR, PTT INR 1.01 (0.82-1.09) D 10/15/16 14:29 Assessment/Plan 1. Sepsis secondary to healthcare-associated pneumonia, probable aspiratio 2. History of hyponatremia 3. Hypothyroidism 4. Hyperlipidemia 5. Down syndrome with severe mental retardation patient reeived vanco and zosyn plan continue zosyn will deescalate by sun incentive mason aspiration precautions
[2016-10-19] MEDS: VALPROATE SODIUM 250 MG/5 ML UNIT DOSE CUP PO SCH (21:11)
[2016-10-19] MEDS: LORATADINE 10 MG TABLET PO SCH (21:17)
[2016-10-19] MEDS: MONTELUKAST NA 10 MG TABLET PO SCH (21:17)
[2016-10-19] MEDS: ATORVASTATIN CA 10 MG TABLET (FP) PO SCH (21:17)
[2016-10-20] MEDS: PANTOPRAZOLE SOD 40 MG SUSPENSION PACKET PO SCH (02:03)
[2016-10-20] MEDS: RANITIDINE HCL 150 MG/10 ML UNIT-DOSE CUP PO SCH ×3 (03:34→22:22)
[2016-10-20] MEDS: PIPERACILLIN/TAZOB 3.375 GM 50 ML IVPB SCH ×2 (03:34→09:27)
[2016-10-20] MEDS: HEPARIN NA (PORCINE) 5,000 UNITS/ML 1ML VIAL SQ SCH ×3 (06:33→22:23)
[2016-10-20] MEDS: LEVOTHYROXINE NA 75 MCG TABLET (FP) PO SCH (06:33)
[2016-10-20] MEDS: SODIUM CHLORIDE 1 GM TABLET PO SCH ×3 (06:33→22:22)
[2016-10-20] MEDS: BUSPIRONE HCL 10 MG, BUSPIRONE HCL 5 MG PO SCH ×3 (06:34→22:22)
[2016-10-20 07:23] LABS: MCH 30.8 pg (25.7-33.7); MCHC 32.9 g/dl (32.0-36.0); MEAN CELL VOLUME 93.7 fl (80-96); MEAN PLT VOLUME 8.7 fl (7.5-11.1); PLATELET COUNT 263 K/MM3 (134-434); RDW 20.3 % (11.6-15.6); WHITE BLOOD COUNT 8.4 K/mm3 (4.0-10.0)
[2016-10-20 07:51] LABS: ALBUMIN 2.7 g/dl (3.4-5.0); BILIRUBIN,TOTAL 0.2 mg/dL (0.2-1.0); CALCIUM 9.1 mg/dL (8.5-10.1); TOT PROT 7.7 g/dl (6.4-8.2)
[2016-10-20] MEDS ORDERED: PT OWN MED DRAWER 7, Y5N ONE ×4 (09:23→20:46)
[2016-10-20] MEDS: ASCORBIC ACID 500 MG TABLET (FP) PO SCH (09:26)
[2016-10-20] MEDS: CALCIUM 500MG/VIT-D 200 UNITS COMBO TABLET (FP) PO SCH (09:26)
[2016-10-20] MEDS: ARIPiprazole 10 MG TABLET PO SCH (09:27)
[2016-10-20 10:34] LABS: PLATELET ESTIMATE ADEQUATE (NORMAL)
[2016-10-20 10:35] LABS: ANISOCYTOSIS 1+; TARGET CELLS FEW
--- NOTE | 2016-10-20 10:50 | PN ---
Physical Exam: SUBJECTIVE: Patient seen and examined. She was more awake and energetic today. Appears back to her baseline. Will reach out to social work about possible PEG tube placement as previously recommended by GI for recurrent asp. pneumonia. [place] need [place]. OBJECTIVE: Vital Signs Period Temp Pulse Resp BP Sys/Chinchilla Pulse Ox Last 24 Hr 97.3 F-98.3 F 54-74 18-20 102-137/46-65 90-93 GENERAL: The patient is awake, and has cognitive delays (down syndrome) HEAD: Normal with no signs of trauma. EYES: sclera anicteric, conjunctiva clear. No ptosis. ENT: Ears normal, nares patent, oropharynx clear without exudates, moist mucous membranes. NECK: Trachea midline, full range of motion, supple. LUNGS: Bilateral upper lobes clear, bilateral lower lobes with diminished breath sounds. Tolerating room air, no dyspnea on exertion. HEART: Regular rate and rhythm ABDOMEN: Soft, nontender, nondistended, normoactive bowel sounds, no guarding, no rebound, no hepatosplenomegaly, no masses. EXTREMITIES: 2+ pulses, warm, well-perfused, no edema. NEUROLOGICAL: walks with one person assist/fall risk/needs hand held assistance. PSYCH: Cognitive limits secondary to MR SKIN: Warm, dry, normal turgor, no rashes or lesions noted Laboratory Results - last 24 hr 10/20/16 10/20/16 06:45 06:45 WBC 8.4 RBC 3.84 Hgb 11.9 Hct 36.0 MCV 93.7 MCHC 32.9 RDW 20.3 H Plt Count 263 D MPV 8.7 Neutrophils % 43.0 Lymphocytes % 27.0 Monocytes % 7.0 Eosinophils % 4.0 D Basophils % 0.0 Band Neutrophils 10.0 Myelocytes 7 H D Differential Comment Manual diff done Reactive Lymphocytes 2 D Platelet Estimate Adequate Anisocytosis 1+ Target Cells Few Sodium 141 Potassium 4.5 Chloride 101 Carbon Dioxide 33 H Anion Gap 7 L BUN 14 Creatinine 1.0 Creat Clearance w eGFR 58.22 Random Glucose 94 Calcium 9.1 Total Bilirubin 0.2 AST 23 D ALT 22 D Alkaline Phosphatase 93 Total Protein 7.7 Albumin 2.7 L Active Medications Generic Name Dose Route Start Last Admin Trade Name Freq PRN Reason Stop Dose Admin Acetaminophen 325 mg 10/15/16 16:24 10/17/16 00:17 Tylenol - PO 325 mg Q4H PRN Administration PAIN Albuterol/Ipratropium 1 amp 10/15/16 16:24 Duoneb - NEB Q6H PRN SHORT OF BREATH/WHEEZING Aripiprazole 20 mg 10/17/16 10:00 10/20/16 09:27 Abilify PO 20 mg DAILY WENDY Administration Ascorbic Acid 500 mg 10/16/16 10:00 10/20/16 09:26 Vitamin C - PO 500 mg DAILY WENDY Administration Atorvastatin Calcium 10 mg 10/15/16 22:00 10/19/16 21:17 Lipitor - PO 10 mg HS WENDY Administration Buspirone HCl 10 mg/ Buspirone 15 mg 10/19/16 06:00 10/20/16 06:34 HCl 5 mg PO 15 mg TID WENDY Administration Calcium Carbonate/Cholecalciferol 1 tab 10/16/16 10:00 10/20/16 09:26 Os-Christian 500+D - PO 1 tab DAILY WENDY Administration Heparin Sodium (Porcine) 5,000 unit 10/15/16 22:00 10/20/16 06:33 Heparin - SQ 5,000 unit TID WENDY Administration Piperacillin Sod/Tazobactam Sod 50 mls @ 100 mls/hr 10/16/16 02:00 10/20/16 09: 27 Zosyn 3.375gm Ivpb (Pre-Docked) IVPB 100 mls/hr Q8H-IV WENDY Administration Levothyroxine Sodium 75 mcg 10/16/16 07:00 10/20/16 06:33 Synthroid - PO 75 mcg DAILY@0700 WENDY Administration Loratadine 10 mg 10/15/16 22:00 10/19/16 21:17 Claritin - PO 10 mg HS WENDY Administration Montelukast Sodium 10 mg 10/15/16 22:00 10/19/16 21:17 Singulair - PO 10 mg HS WENDY Administration Ondansetron HCl 4 mg 10/15/16 16:54 Zofran Injection IVPB Q6H PRN NAUSEA Ranitidine HCl 150 mg 10/20/16 02:00 10/20/16 09:26 Zantac Oral Solution - PO 150 mg BID WENDY Administration Sodium Chloride 1 gm 10/15/16 22:00 10/20/16 06:33 Sodium Chloride Tablet - PO 1 gm TID WENDY Administration Valproate Sodium 1,250 mg 10/15/16 22:00 10/19/16 21:11 Depakene - PO 1,250 mg HS WENDY Administration ASSESSMENT/PLAN: Patient is a 51 year old female (from a [facility]) with a significant past medical history of MR, down syndrome, hypothyroidism and recurrent pneumonia. She was brought into to the ED on 10/15/2016 with fever of 102.9F. She was also noted to have tachycardia, leukocytosis (WBC 16.4) and lactic acid levels of 2.725. She was recently hospitalized between 09/18/2016 - 09/24/2016 with sepsis and was treated with IV Zosyn. She was discharged back to the [facility] to continue Augmentin 875mg - 125 BID for 4 more days. Will reach out to social work about possible PEG tube placement as previously recommended by GI for recurrent asp. pneumonia. Will need to obtain [place] consent. Imaging: Chest xray 10/15/2016 shows residual minimal atelectatic changes/infiltrates in right lung base, medially ID: Sepsis secondary to healthcare-associated pneumonia - improved likely due to chronic aspiration Plan: On Zosyn (day#5) as per ID Lactic Acidosis - resolved Leukocytosis - resolved TMAX 100.1F on 10/16/16, afebrile since Supportive care with duonebs, and oxygen as needed She is currently tolerating room air, able to ambulate without dyspnea Blood cultures with no growth to date UTI: Urine cultures - with proteus mirabilis - acute Plan: ID following, on Zosyn Neuro: Down Syndrome/MR Plan: At baseline, no behaviour disturbances reported, needs close monitoring, has aide at bedside On Ability 20mg daily, Buspar and Depakene Safety risk, fall risk Hematology: Anemia - resolved Plan: Monitor trend F.E.N: Fluids: tolerating PO fluids Electrolytes: Hyponatremia: resolved, on sodium tablets TID Hypothyroidism: On Synthroid 75mcgs Hyperlipidemia: on Lipitor @ hs Hyperkalemia: none on this admission Nutrition: Dysphagia Pureed Diet Consistency: [place] Thick Supplement: Ensure compact Prophylaxis: DVT: Heparin TID GI: Protonix 20mg BID Disposition: Continues to require inpatient hospitalization. Full Code Visit type - Emergency Visit Emergency Visit: Yes ED Registration Date: 10/15/16 Care time: The patient presented to the Emergency Department on the above date and was hospitalized for further evaluation of their emergent condition. - New Patient This patient is new to me today: No - Critical Care Critical Care patient: No - Discharge Referral Referred to [facility] No
--- NOTE | 2016-10-20 15:02 | PN ---
Progress Note, Physician History of Present Illness: stable no issues - Current Medication List Current Medications: Active Medications Acetaminophen (Tylenol -) 325 mg PO Q4H PRN PRN Reason: PAIN Last Admin: 10/17/16 00:17 Dose: 325 mg Albuterol/Ipratropium (Duoneb -) 1 amp NEB Q6H PRN PRN Reason: SHORT OF BREATH/WHEEZING Aripiprazole (Abilify) 20 mg PO DAILY [facility] Last Admin: 10/20/16 09:27 Dose: 20 mg Ascorbic Acid (Vitamin C -) 500 mg PO DAILY [facility] Last Admin: 10/20/16 09:26 Dose: 500 mg Atorvastatin Calcium (Lipitor -) 10 mg PO [facility] Last Admin: 10/19/16 21:17 Dose: 10 mg Buspirone HCl 10 mg/ Buspirone (HCl 5 mg) 15 mg PO TID [facility] Last Admin: 10/20/16 14:39 Dose: 15 mg Calcium Carbonate/Cholecalciferol (Os-Christian 500+D -) 1 tab PO DAILY [facility] Last Admin: 10/20/16 09:26 Dose: 1 tab Heparin Sodium (Porcine) (Heparin -) 5,000 unit SQ TID [facility] Last Admin: 10/20/16 14:40 Dose: 5,000 unit Piperacillin Sod/Tazobactam Sod (Zosyn 3.375gm Ivpb (Pre-Docked)) 50 mls @ 100 mls/hr IVPB Q8H-IV [facility] Last Admin: 10/20/16 09:27 Dose: 100 mls/hr Levothyroxine Sodium (Synthroid -) 75 mcg PO DAILY@0700 [facility] Last Admin: 10/20/16 06:33 Dose: 75 mcg Loratadine (Claritin -) 10 mg PO [facility] Last Admin: 10/19/16 21:17 Dose: 10 mg Montelukast Sodium (Singulair -) 10 mg PO [facility] Last Admin: 10/19/16 21:17 Dose: 10 mg Ondansetron HCl (Zofran Injection) 4 mg IVPB Q6H PRN PRN Reason: NAUSEA Ranitidine HCl (Zantac Oral Solution -) 150 mg PO BID [facility] Last Admin: 10/20/16 09:26 Dose: 150 mg Sodium Chloride (Sodium Chloride Tablet -) 1 gm PO TID [facility] Last Admin: 10/20/16 14:40 Dose: 1 gm Valproate Sodium (Depakene -) 1,250 mg PO HS [facility] Last Admin: 10/19/16 21:11 Dose: 1,250 mg - Objective Vital Signs: Vital Signs Temperature 97.8 F 10/20/16 14:38 Pulse Rate 67 10/20/16 14:38 Respiratory Rate 20 10/20/16 14:38 Blood Pressure 123/70 10/20/16 14:38 O2 Sat by Pulse Oximetry (%) 96 10/20/16 11:14 Constitutional: Yes: No Distress, Calm Cardiovascular: Yes: Regular Rate and Rhythm Respiratory: Yes: Regular, CTA Bilaterally Gastrointestinal: Yes: Normal Bowel Sounds, Soft Musculoskeletal: Yes: WNL Extremities: Yes: WNL Neurological: Yes: Alert Psychiatric: Yes: Alert Labs: CBC, BMP 10/20/16 06:45 10/20/16 06:45 INR, PTT INR 1.01 (0.82-1.09) D 10/15/16 14:29 Assessment/Plan 1. Sepsis secondary to healthcare-associated pneumonia, probable aspiratio 2. History of hyponatremia 3. Hypothyroidism 4. Hyperlipidemia 5. Down syndrome with severe mental retardation patient reeived vanco and zosyn plan will stop zosyn will switch to augmenti
[2016-10-20] MEDS: AMOX TR/POT CLAV 500MG/125MG TABLETS (FP) PO SCH (17:39)
[2016-10-20] MEDS: VALPROATE SODIUM 250 MG/5 ML UNIT DOSE CUP PO SCH (22:21)
[2016-10-20] MEDS: LORATADINE 10 MG TABLET PO SCH (22:22)
[2016-10-20] MEDS: ATORVASTATIN CA 10 MG TABLET (FP) PO SCH (22:22)
[2016-10-20] MEDS: MONTELUKAST NA 10 MG TABLET PO SCH (22:23)
[2016-10-21] MEDS ORDERED: PT OWN MED DRAWER 7, Y5N ONE ×2 (06:11→09:08)
[2016-10-21 06:39] VITALS: BP 104/62; TEMP 98
[2016-10-21] MEDS: BUSPIRONE HCL 10 MG, BUSPIRONE HCL 5 MG PO SCH (06:51)
[2016-10-21] MEDS: SODIUM CHLORIDE 1 GM TABLET PO SCH (06:52)
[2016-10-21] MEDS: LEVOTHYROXINE NA 75 MCG TABLET (FP) PO SCH (06:52)
[2016-10-21] MEDS: HEPARIN NA (PORCINE) 5,000 UNITS/ML 1ML VIAL SQ SCH (06:52)
[2016-10-21 07:07] LABS: MCH 30.8 pg (25.7-33.7); MEAN CELL VOLUME 93.3 fl (80-96); MEAN PLT VOLUME 8.7 fl (7.5-11.1); PLATELET COUNT 282 K/MM3 (134-434); RDW 20.3 % (11.6-15.6); WHITE BLOOD COUNT 7.2 K/mm3 (4.0-10.0)
[2016-10-21 07:36] LABS: ALBUMIN 2.6 g/dl (3.4-5.0); ANION GAP 7 (8-16); BILIRUBIN,TOTAL 0.2 mg/dL (0.2-1.0); CALCIUM 8.8 mg/dL (8.5-10.1); CO2 31 mmol/L (21-32); CREATININE 0.9 mg/dL (0.55-1.02); GLUCOSE,RANDOM 98 mg/dL (74-106); SGOT/AST 21 U/L (15-37); SGPT/ALT 22 U/L (12-78); TOT PROT 7.3 g/dl (6.4-8.2)
[2016-10-21 07:37] LABS: ALK PHOS 81 U/L (45-117)
--- NOTE | 2016-10-21 09:04 | DS ---
Physical Exam: SUBJECTIVE: Patient seen and examined. She is awake, alert, in no acute distress. Aide at bedside. OBJECTIVE: Vital Signs Period Temp Pulse Resp BP Sys/Chinchilla Pulse Ox Last 24 Hr 97.8 F-98.8 F 50-75 18-20 104-149/50-80 96-96 PHYSICAL EXAM GENERAL: The patient is awake, and has cognitive delays (down syndrome) - patient back to her baseline. HEAD: Normal with no signs of trauma. EYES: sclera anicteric, conjunctiva clear. No ptosis. ENT: Ears normal, nares patent, oropharynx clear without exudates, moist mucous membranes. NECK: Trachea midline, full range of motion, supple. LUNGS: Bilateral upper lobes clear, bilateral lower lobes with diminished breath sounds. Tolerating room air, no dyspnea on exertion. HEART: Regular rate and rhythm ABDOMEN: Soft, nontender, nondistended, normoactive bowel sounds, no guarding, no rebound, no hepatosplenomegaly, no masses. EXTREMITIES: 2+ pulses, warm, well-perfused, no edema. NEUROLOGICAL: walks with one person assist/fall risk/needs hand held assistance. PSYCH: Cognitive limits secondary to MR SKIN: Warm, dry, normal turgor, no rashes or lesions noted LABS Laboratory Results - last 24 hr 10/20/16 10/21/16 10/21/16 06:45 05:40 05:40 WBC 7.2 RBC 3.84 Hgb 11.8 Hct 35.9 MCV 93.3 MCHC 33.0 RDW 20.3 H Plt Count 282 MPV 8.7 Neutrophils % 43.0 Y Lymphocytes % 27.0 Y Monocytes % 7.0 Eosinophils % 4.0 D Basophils % 0.0 Band Neutrophils 10.0 Myelocytes 7 H D Differential Comment Manual diff done Reactive Lymphocytes 2 D Platelet Estimate Adequate Anisocytosis 1+ Target Cells Few Sodium 138 Potassium 4.8 Chloride 100 Carbon Dioxide 31 Anion Gap 7 L BUN 15 Creatinine 0.9 Creat Clearance w eGFR > 60 Random Glucose 98 Calcium 8.8 Total Bilirubin 0.2 AST 21 ALT 22 Alkaline Phosphatase 81 Total Protein 7.3 Albumin 2.6 L HOSPITAL COURSE: Date of Admission:10/15/16 Date of Discharge: 10/21/16 ASSESSMENT/PLAN: Patient is a 51 year old female (from a [facility]) with a significant past medical history of MR, down syndrome, hypothyroidism and recurrent pneumonia. She was brought into to the ED on 10/15/2016 with fever of 102.9F. She was also noted to have tachycardia, leukocytosis (WBC 16.4) and lactic acid levels of 2.725. She was recently hospitalized between 09/18/2016 - 09/24/2016 with sepsis and was treated with IV Zosyn. She was discharged back to the [facility] to continue Augmentin 875mg - 125 BID for 4 more days. Patient will need PEG tube placement as previously recommended by GI for recurrent asp. pneumonia. Will need to obtain [facility] consent. Imaging: Chest xray 10/15/2016 shows residual minimal atelectatic changes/infiltrates in right lung base, medially ID: Sepsis secondary to healthcare-associated pneumonia - resolved likely due to chronic aspiration Plan: continue on Augmentin BID for 3 more days - script sent Lactic Acidosis - resolved Leukocytosis - resolved TMAX 100.1F on 10/16/16, afebrile since She is currently tolerating room air, able to ambulate without dyspnea Blood cultures with no growth to date UTI: Urine cultures with proteus mirabilis WBC stable, afebrile, non toxic appearing, continue antibiotics Can repeat UC as outpatient once antibiotics complete Neuro: Down Syndrome/MR Plan: At baseline, no behaviour disturbances reported, needs close monitoring, has aide at bedside On Ability 20mg daily, Buspar and Depakene Safety risk, fall risk Hematology: Anemia - resolved Plan: Monitor trend F.E.N: Fluids: tolerating PO fluids Electrolytes: Hyponatremia: resolved, on sodium tablets TID Hypothyroidism: On Synthroid 75mcgs Hyperlipidemia: on Lipitor @ hs Hyperkalemia: none on this admission Nutrition: Dysphagia Pureed Diet Consistency: [place] Thick Supplement: Ensure compact Disposition: Discharge back to [facility]. 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 at a time, Other (a few tsp at a time, allowing time to pass through the esophagus,. (possibly walking during meal, after PO intake), Alternate puree with liquid. Several SMALL meals throughout the day. Pull off some of food from tray and continue to feed 15 min later. Small amounts throughout day/every hour. No PO intake within 2 hr of bedtime.) needs supervision Continue Augmentin 500mg twice per day for 3 more days Return to the ER if you experience any of the following: Shortness of breath Fevers Lethargy Can repeat urine culture as outpatient once antibiotics complete - urine was + for bacteria. Peg tube placement recommended for recurrent aspiration pneumonia. [place] need [place] consent. Disposition: HOME - Home Medications Comprehensive Discharge Medication List: Ambulatory Orders Buspirone HCl [Buspar -] 15 mg PO TID 09/05/15 Cetirizine HCl 10 mg PO HS 09/05/15 Levothyroxine [Synthroid -] 75 mcg PO DAILY 09/05/15 Lovastatin 20 mg PO DAILY 09/05/15 Alendronate Sodium [Binosto] 70 mg PO WEEKLY 09/06/15 Omeprazole [Prilosec] 20 mg PO BID 12/17/15 Montelukast Na [Singulair -] 10 mg PO HS 07/04/16 Acetaminophen [Tylenol] 325 mg PO Q6H PRN 09/18/16 Aripiprazole [Abilify] 20 mg PO DAILY 09/18/16 Ascorbate Calcium [Vitamin C] 500 mg PO DAILY 09/18/16 Sodium Chloride 1,000 mg PO TID 09/18/16 Valproate Sodium [Depakene -] 25 ml PO HS 09/18/16 Albuterol 2.5/Ipratropium 0.5 [Duoneb -] 1 amp NEB BID 10/15/16 Calcium Carbonate/Vitamin D3 [Calcium 600 + Vit D Tablet] 1 each PO DAILY Amox-Tr/K Cl [Augmentin 500-125mg Tablet -] 1 tab PO BID@0800,1730 #6 tablet Buspirone HCl [Buspar -] 15 mg PO TID tablet 10/21/16 Buspirone HCl [Buspar -] 15 mg PO TID tablet 10/21/16 Ranitidine Oral Solution [Zantac Oral Solution -] 150 mg PO BID cup 10/21/16 This patient is new to me today: No Emergency Visit: Yes ED Registration Date: 10/15/16 Care time: The patient presented to the Emergency Department on the above date and was hospitalized for further evaluation of their emergent condition. Critical Care patient: No - Discharge Referral Referred to [facility] No
[2016-10-21 09:16] LABS: METAMYELOCYTE 3 % (0-2)
[2016-10-21] MEDS: AMOX TR/POT CLAV 500MG/125MG TABLETS (FP) PO SCH (09:16)
[2016-10-21] MEDS: ARIPiprazole 10 MG TABLET PO SCH (09:17)
[2016-10-21] MEDS: CALCIUM 500MG/VIT-D 200 UNITS COMBO TABLET (FP) PO SCH (09:17)
[2016-10-21] MEDS: RANITIDINE HCL 150 MG/10 ML UNIT-DOSE CUP PO SCH (09:17)
[2016-10-21] MEDS: ASCORBIC ACID 500 MG TABLET (FP) PO SCH (09:17)
[2016-10-21 09:19] LABS: PLATELET ESTIMATE ADEQUATE (NORMAL)
[2016-10-21 10:31] VITALS: PULSE 68
== END 2016-10-21 10:42 | disposition home or self-care (01) | DRG 871 ==
LOC: JER 13:04 → JERBED 15:39 → UNDOADMIN 15:46 → J5S 18:56
PROVIDERS: ADMIT Internal Medicine; ATTEND Nurse Practitioner Family
DX: A41.9 Sepsis, unspecified organism (principal); J69.0 Pneumonitis due to inhalation of food and vomit; N39.0 Urinary tract infection, site not specified; F72 Severe intellectual disabilities; B96.4 Proteus (mirabilis) (morganii) as the cause of diseases classified elsewhere; Q90.9 Down syndrome, unspecified; F91.9 Conduct disorder, unspecified; E03.9 Hypothyroidism, unspecified; I10 Essential (primary) hypertension; E78.5 Hyperlipidemia, unspecified; R00.0 Tachycardia, unspecified; D64.9 Anemia, unspecified; D72.829 Elevated white blood cell count, unspecified
CPT/HCPCS: 36415; 71010-TC; 80048; 80053; 81003; 82550; 82803; 83605; 84484; 85025; 85610; 85730; 86850; 86900; 86901; 87040; 87086; 87186; 87254; 87804; 93005; 93010; 99285-25; J1644

== ENCOUNTER 2016-12-09 14:33 | Inpatient (IN) | payer OTHER ==
--- NOTE | 2016-12-09 15:57 | PDOC ---
History of Present Illness - General History Source: Patient Exam Limitations: Clinical Condition - History of Present Illness Initial Comments: 12/09/16 15:21 The patient is a 51-year-old woman, from [facility], accompanied by home health aide, with a significant past medical history of Down -syndrome, hypercholesterolemia, hyponatremia, hypothyroidism, recurrent Pneumonia (on aspiration precautions) who presents to the emergency department via for further evaluation of cold-like symptoms. Upon ER arrival, patient was noted to have a temperature of 102.7, heart rate of 103 and hypoxic to 93% on room air. Patient is non-verbal at baseline, thus history was obtained by home health aide, who takes care of the patient daily. As per home health aide, for the past couple of days, the patient has been noted to endorsed a cough and pt seems to be tilting her head to one side for the past day or so. home health aide expresses concern, as the patient is typically very active. No decrease appetite. No noted aspirations when cough/eating. This morning, the patient was found to have a fever, and advised to present to the ED. As per [facility] , no sick contacts at the [facility]. Patient was in his ED on November 11 2015 in respiratory distress and was admitted for sepsis and pneumonia. No fever, chills, generalized weakness. No abdominal pain, nausea, vomiting, diarrhea. No shortness of breath. Allergies: Naltrexone Past Surgical History: Bilateral cataract surgery (2007) Social History: No tobacco, ETOH or recreational drug use. Primary Care Physician: Dr. Hanson <Cindy Dang - Last Filed: 12/09/16 17:10> <Hayden Cloud - Last Filed: 12/10/16 20:24> - General Chief Complaint: Cold Symptoms Stated Complaint: HIGH FEVER Time Seen by Provider: 12/09/16 15:21 Past History <Cindy Dang - Last Filed: 12/09/16 17:10> - Past Medical History Asthma: Yes Hypercholesterolemia: Yes Psychiatric Problems: Yes (INTELLECTUAL DISABILITY, BEHAVIOR DISORDER) Thyroid Disease: Yes (hypo) - Surgical History Abdominal Surgery: No - Immunization History Immunization Up to Date: Yes - Psycho/Social/Smoking Cessation Hx Anxiety: No Suicidal Ideation: No Smoking History: Never smoked Have you smoked in the past 12 months: No Information on smoking cessation initiated: No Hx Alcohol Use: No Drug/Substance Use Hx: No Substance Use Type: None Hx Substance Use Treatment: No <Uri Cloudan - Last Filed: 12/10/16 20:24> - Past Medical History Allergies/Adverse Reactions: Allergies Allergy/AdvReac Type Severity Reaction Status Date / Time naltrexone HCl [From Trexan] Allergy Unknown Verified 12/09/16 14:49 Home Medications: Ambulatory Orders Acetaminophen [Tylenol] 325 mg PO Q4H PRN 12/09/16 Albuterol 2.5/Ipratropium 0.5 [Duoneb -] 1 amp NEB BID 12/09/16 Alendronate Sodium [Binosto] 70 mg PO WEEKLY 12/09/16 Aripiprazole [Abilify] 20 mg PO DAILY 12/09/16 Ascorbate Calcium [Vitamin C] 500 mg PO DAILY 12/09/16 Buspirone HCl [Buspar -] 15 mg PO TID 12/09/16 Calcium Carbonate/Vitamin D3 [Calcium 600 + Vit D Tablet] 1 each PO DAILY Cetirizine HCl [Zyrtec -] 10 mg PO DAILY 12/09/16 Levothyroxine [Synthroid -] 75 mcg PO DAILY 12/09/16 Lovastatin 20 mg PO DAILY 12/09/16 Montelukast Na [Singulair -] 10 mg PO HS 12/09/16 Omeprazole 20 mg PO DAILY 12/09/16 Review of Systems - Review of Systems Able to Perform ROS?: No Comments:: 12/09/16 15:22 Limited as patient is non-verbal. <Cindy Dang - Last Filed: 12/09/16 17:10> *Physical Exam - Vital Signs Last Vital Signs Temp Pulse Resp BP Pulse Ox 102.7 F H 103 H 18 0/0 93 L 12/09/16 14:43 12/09/16 14:43 12/09/16 14:43 12/09/16 14:43 12/09/16 14:43 - Physical Exam Comments: 12/09/16 15:23 GENERAL: awake, alert, looking around spontaneously HEAD: Normocephalic, atraumatic. EYES: extraocular movements intact, sclera anicteric, conjunctiva clear. ENT: dry mucus membranes, NECK: hypertertrophy of L SCM, No assymetry appreciated of the oropharynx, neck is supple,no cervical lymphadenopthy noted. LUNGS: Scant crackles at the left base. HEART: tachycardic, without murmur, rub or gallop. ABDOMEN: Soft, nontender, normoactive bowel sounds. No guarding, no rebound.No CVA tenderness EXTREMITIES: Normal range of motion, no edema. No clubbing or cyanosis. No cords, erythema, or tenderness. NEUROLOGICAL: No facial assymetry, Non-verbal. moving all 4 extremities spontaneously and symmetrically PSYCH: Normal mood, normal affect. SKIN: Warm, Dry, normal turgor. <Cindy Dang - Last Filed: 12/09/16 17:10> - Vital Signs Last Vital Signs Temp Pulse Resp BP Pulse Ox 102.7 F H 103 H 18 0/0 93 L 12/09/16 14:43 12/09/16 14:43 12/09/16 14:43 12/09/16 14:43 12/09/16 14:43 <Hayden Cloud - Last Filed: 12/10/16 20:24> Heart Score/ECG Review - ECG Impressions Comment:: 12/09/16 16:51 Twelve-lead EKG was performed and reviewed by me. There is normal sinus rhythm with a normal rate. Rate of 99 The axis is normal. The intervals are normal. There is normal R wave progression Nonspecific T wave abnormality <Hayden Cloud - Last Filed: 12/10/16 20:24> ED Treatment Course - LABORATORY CBC & Chemistry Diagram: 12/09/16 14:53 12/09/16 14:53 - ADDITIONAL ORDERS Additional order review: Laboratory Results 12/09/16 14:53 INR 1.18 H PTT (Actin FS) 28.5 12/09/16 14:53 RBC 3.36 L MCV 95.2 MCHC 32.2 RDW 22.6 H MPV 9.1 Neutrophils % Y Lymphocytes % Y <Cindy Dang - Last Filed: 12/09/16 17:10> - LABORATORY CBC & Chemistry Diagram: 12/10/16 06:35 12/10/16 06:35 - RADIOLOGY Radiology Studies Ordered: Category Date Time Status CHEST X-RAY PORTABLE* [RAD] Stat Radiology 12/09/16 15:37 Ordered <Hayden Cloud - Last Filed: 12/10/16 20:24> Medical Decision Making - Medical Decision Making 12/09/16 15:57 51y F hx of down syndrome, recurrent pna/aspiration pna, presents with fever, hypoxia - pt was otherwise well yesterday and this morning and her 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 history limited as pt is nonverbal. on exam pt noted to be mildly hypoxic and has scant crackels at the bases b/l. suspect influenza vs. pna will ck labs, influenza, cxr will give tylenol for fever will reassess, likely admission 12/09/16 17:17 pt also with some torticolis - will obtain ct head/neck to r/o mass/abscess pt noted for significant leuckoytosis pt written for broad sepctrum abx (vanc, zosyn, levaquin) cxr shows some bibasilar infiltrates will sign out to dr. joshi to fu with CT results <Hayden Cloud - Last Filed: 12/10/16 20:24> *DC/Admit/Observation/Transfer - Attestations Scribe Attestion: 12/09/16 15:23 Documentation prepared by Cindy Dang, acting as medical claims specialist for Hayden Cloud MD. <Cindy Dang - Last Filed: 12/09/16 17:10> <Hayden Cloud - Last Filed: 12/10/16 20:24> Diagnosis at time of Disposition: Pneumonia, Leukocytosis, Mental retardation - Referrals
[2016-12-09] MEDS ORDERED: ACETAMINOPHEN 325 MG TABLET (FP) PO ONE (16:38)
[2016-12-09] MEDS ORDERED: ACETAMINOPHEN 1000 MG/100 ML VIAL (NON FORMULARY) IVPB ONE ×3 (16:38→16:56)
[2016-12-09 16:43] LABS: MCH 30.6 pg (25.7-33.7); MCHC 32.2 g/dl (32.0-36.0); MEAN CELL VOLUME 95.2 fl (80-96); MEAN PLT VOLUME 9.1 fl (7.5-11.1); PLATELET COUNT 316 K/MM3 (134-434); RDW 22.6 % (11.6-15.6); WHITE BLOOD COUNT 22.8 K/mm3 (4.0-10.0)
[2016-12-09 16:56] LABS: INR 1.18 (0.82-1.09)
[2016-12-09 16:59] LABS: ACTIVATED PTT 28.5 SECONDS (26.9-34.4)
[2016-12-09 17:05] LABS: URINE APPEARANCE CLEAR; URINE BILIRUBIN NEGATIVE (NEGATIVE); URINE BLOOD NEGATIVE (NEGATIVE); URINE COLOR YELLOW; URINE GLUCOSE (UA) NEGATIVE (NEGATIVE); URINE KETONE TRACE (NEGATIVE); URINE LEUK ESTERASE NEGATIVE (NEGATIVE); URINE NITRITE NEGATIVE (NEGATIVE); URINE PROTEIN NEGATIVE (NEGATIVE); URINE UROBILINOGEN 2.0 E.U/dl E.U./dl (0.2-1.0)
[2016-12-09] MEDS ORDERED: VANCOMYCIN 1,000 MG in DEXTROSE 5%-WATER - 250 ML IVPB ONE (17:16)
[2016-12-09] MEDS ORDERED: PIPERACILLIN/TAZOB 4.5 GM/100 ML PRE-DOCKED IVPB ONE (17:16)
[2016-12-09] MEDS ORDERED: LEVOFLOXACIN 750 MG IVPB 150 ML IVPB ONE ×2 (17:16→18:30)
[2016-12-09 17:23] LABS: VENOUS PH 7.38 (7.32-7.42)
[2016-12-09 17:24] LABS: VENOUS BLOOD GAS HCO3 26.7 meq/L (19-25)
[2016-12-09 18:07] LABS: PLATELET ESTIMATE ADEQUATE (NORMAL)
[2016-12-09 18:08] LABS: ANISOCYTOSIS 2+; HYPOCHROMIA 1+; MICROCYTOSIS 1+
[2016-12-09] MEDS ORDERED: PIPERACILLIN/TAZOB 4.5 GM 100 ML IVPB ONE (18:30)
[2016-12-09] MEDS ORDERED: VANCOMYCIN 1 GRAM (PRE-DOCKED) 250 ML IVPB ONE (18:30)
[2016-12-09 18:37] LABS: ALBUMIN 2.6 g/dl (3.4-5.0); ANION GAP 8 (8-16); BILIRUBIN,TOTAL 0.5 mg/dL (0.2-1.0); CALCIUM 8.3 mg/dL (8.5-10.1); CO2 30 mmol/L (21-32); GLUCOSE,RANDOM 76 mg/dL (74-106); SGOT/AST 15 U/L (15-37); SGPT/ALT 13 U/L (12-78); TOT PROT 6.9 g/dl (6.4-8.2)
[2016-12-09 18:40] LABS: ALK PHOS 64 U/L (45-117); TROPONIN I < 0.02 ng/ml (0.00-0.05)
--- NOTE | 2016-12-09 21:39 | PDOC ---
*Physical Exam - Vital Signs Last Vital Signs Temp Pulse Resp BP Pulse Ox 102.7 F H 103 H 18 0/0 93 L 12/09/16 14:43 12/09/16 14:43 12/09/16 14:43 12/09/16 14:43 12/09/16 14:43 ED Treatment Course - LABORATORY CBC & Chemistry Diagram: 12/09/16 14:53 12/09/16 17:30 - ADDITIONAL ORDERS Additional order review: Laboratory Results 12/09/16 12/09/16 12/09/16 17:30 17:30 17:15 INR PTT (Actin FS) VBG pH 7.38 POC VBG pCO2 46.2 POC VBG pO2 32.0 D Mixed VBG HCO3 26.7 H Sodium 142 Potassium 4.5 Chloride 104 Carbon Dioxide 30 Anion Gap 8 BUN 12 Creatinine 1.0 D Creat Clearance w eGFR 58.22 Random Glucose 76 D Lactic Acid Calcium 8.3 L Total Bilirubin 0.5 D AST 15 ALT 13 D Alkaline Phosphatase 64 D Creatine Kinase 37 Troponin I < 0.02 Total Protein 6.9 Albumin 2.6 L Urine Color Urine Appearance Urine pH Ur Specific [place] Urine Protein Urine Glucose (UA) Urine Ketones Urine Blood Urine Nitrite Urine Bilirubin Urine Urobilinogen Ur Leukocyte Esterase Blood Type B POSITIVE Antibody Screen Negative Spec Expiration Date 12/09/16 12/09/16 12/09/16 14:53 14:53 14:53 INR PTT (Actin FS) VBG pH POC VBG pCO2 POC VBG pO2 Mixed VBG HCO3 Sodium Cancelled Potassium Cancelled Chloride Cancelled Carbon Dioxide Cancelled Anion Gap Cancelled BUN Cancelled Creatinine Cancelled Creat Clearance w eGFR Cancelled Random Glucose Cancelled Lactic Acid 1.095 Calcium Cancelled Total Bilirubin Cancelled AST Cancelled ALT Cancelled Alkaline Phosphatase Cancelled Creatine Kinase Cancelled Troponin I Cancelled Total Protein Cancelled Albumin Cancelled Urine Color Urine Appearance Urine pH Ur Specific [place] Urine Protein Urine Glucose (UA) Urine Ketones Urine Blood Urine Nitrite Urine Bilirubin Urine Urobilinogen Ur Leukocyte Esterase Blood Type Cancelled Antibody Screen Cancelled Spec Expiration Date Cancelled 12/09/16 12/09/16 14:53 14:53 INR 1.18 H PTT (Actin FS) 28.5 VBG pH POC VBG pCO2 POC VBG pO2 Mixed VBG HCO3 Sodium Potassium Chloride Carbon Dioxide Anion Gap BUN Creatinine Creat Clearance w eGFR Random Glucose Lactic Acid Calcium Total Bilirubin AST ALT Alkaline Phosphatase Creatine Kinase Troponin I Total Protein Albumin Urine Color Yellow Urine Appearance Clear Urine pH 8.0 D Ur Specific [place] 1.020 Urine Protein Negative Urine Glucose (UA) Negative Urine Ketones Trace H Urine Blood Negative Urine Nitrite Negative Urine Bilirubin Negative Urine Urobilinogen 2.0 e.u/dl H Ur Leukocyte Esterase Negative Blood Type Antibody Screen Spec Expiration Date 12/09/16 14:53 Influenza Types A,B Antigen (MARY) - Final Nasopharyngeal Swab - Final 12/09/16 14:53 RBC 3.36 L MCV 95.2 MCHC 32.2 RDW 22.6 H MPV 9.1 Neutrophils % 76.0 D Lymphocytes % 8.0 Monocytes % 6.0 D - Medications Given in the ED: ED Medications Discontinued Medications Generic Name Dose Route Start Last Admin Trade Name Freq PRN Reason Stop Dose Admin Acetaminophen 650 mg 12/09/16 16:56 12/09/16 18:25 Ofirmev Injection - IVPB 12/09/16 16:57 Not Given ONCE ONE Acetaminophen 550 mg 12/09/16 16:56 12/09/16 18:25 Ofirmev Injection - IVPB 12/09/16 16:57 550 mg ONCE ONE Administration Diphenhydramine HCl 25 mg 12/09/16 19:10 12/09/16 19:38 Benadryl Injection - IVPUSH 12/09/16 19:11 25 mg ONCE ONE Administration Levofloxacin 150 mls @ 100 mls/hr 12/09/16 17:16 12/09/16 20:36 Levaquin 750 Mg Premixed Ivpb - IVPB 12/09/16 18:45 100 mls/hr ONCE ONE Administration Piperacillin Sod/Tazobactam Sod 4.5 gm 12/09/16 17:16 12/09/16 20:10 Zosyn 4.5gm Ivpb (Pre-Docked) IVPB 12/09/16 17:17 4.5 gm ONCE ONE Administration *DC/Admit/Observation/Transfer Diagnosis at time of Disposition: Mental retardation Pneumonia Qualifiers: Pneumonia type: due to unspecified organism Laterality: unspecified laterality Lung location: lower lobe of lung Qualified Code(s): J18.1 - Lobar pneumonia, unspecified organism Leukocytosis Qualifiers: Leukocytosis type: unspecified Qualified Code(s): D72.829 - Elevated white blood cell count, unspecified - Discharge Dispostion Admit: Yes - Referrals Referrals: Indira Hanson [Primary Care Provider] - - Patient Instructions - Post Discharge Activity
--- NOTE | 2016-12-09 23:28 | HP ---
CHIEF COMPLAINT: " Fever 103F" PCP: Dr. Hanson HISTORY OF PRESENT ILLNESS: History obtained from intensive care ambulance paramedic at bed side Patient is a 51-year-old female, resident of [facility], was brought to the ED after she developed fever of 103F. As per the intensive care ambulance paramedic, patient had fever x 1 day and dry cough since 2 days. She mentions no change in behavior, patient is at baseline- mute, self abusive, agitative on/off, needs help in all daily activities, understands few sign language and obeys few commands. Patient has a h/o recurrent aspiration due to pneumonia. small animal caretaker says patient is on thick puree diet, feeds herself and tries to eat very fast which may be the reason for her frequent aspiration. Since yesterday, intensive care ambulance paramedic has noticed that patient has been tilting her head on the right side at all times which is unusual for her. No ear discharge or recent ear infection. No h/o diarrhoea or constipation. Recent hospitalization at [facility] on 11/10/16 admitted with the diagnosis of Sepsis secondary to Pneumonia and was discharged on Augmentin and steroids for 3 days. ER course was notable for: (1) Temperature 102.7 F; Tachycardic 103 bpm, Hypoxia 93 spo2 in RA; Leukocytosis 22.8; H/H 10.3/32 (2) CXR- Right upper lobe infiltrate; Bibasilar infiltrates (3) Benadryl, IV Tylenol; IV Levofloxacin 750mg; IV Vancomycin, IV zosyn. Recent Travel: PAST MEDICAL HISTORY: Down syndrome, HLD, hypothyroidism, hyponatremia, recurrent pneumonia PAST SURGICAL HISTORY: b/l cataract surgery 2007 Social History: Smoking: Never Alcohol: Never Drugs: Never Family History: Unknown Allergies naltrexone HCl [From Trexan] Allergy (Unknown, Verified 12/09/16 14:49) HOME MEDICATIONS: Home Medications Medication Instructions Recorded Acetaminophen [Tylenol] 325 mg PO Q4H PRN 12/09/16 Albuterol 2.5/Ipratropium 0.5 1 amp NEB BID 12/09/16 [Duoneb -] Alendronate Sodium [Binosto] 70 mg PO WEEKLY 12/09/16 Aripiprazole [Abilify] 20 mg PO DAILY 12/09/16 Ascorbate Calcium [Vitamin C] 500 mg PO DAILY 12/09/16 Buspirone HCl [Buspar -] 15 mg PO TID 12/09/16 Calcium Carbonate/Vitamin D3 1 each PO DAILY 12/09/16 [Calcium 600 + Vit D Tablet] Cetirizine HCl [Zyrtec -] 10 mg PO DAILY 12/09/16 Levothyroxine [Synthroid -] 75 mcg PO DAILY 12/09/16 Lovastatin 20 mg PO DAILY 12/09/16 Montelukast Na [Singulair -] 10 mg PO HS 12/09/16 Omeprazole 20 mg PO DAILY 12/09/16 REVIEW OF SYSTEMS CONSTITUTIONAL: Present: Fever Absent: chills, diaphoresis, generalized weakness, malaise, loss of appetite, weight change HEENT: Absent: rhinorrhea, nasal congestion, throat pain, throat swelling, difficulty swallowing, mouth swelling, ear pain, eye pain, visual changes CARDIOVASCULAR: Absent: chest pain, syncope, palpitations, irregular heart rate, lightheadedness , peripheral edema RESPIRATORY: Absent: cough, shortness of breath, dyspnea with exertion, orthopnea, wheezing, stridor, hemoptysis GASTROINTESTINAL: Absent: abdominal pain, abdominal distension, nausea, vomiting, diarrhea, constipation, melena, hematochezia GENITOURINARY: Absent: dysuria, frequency, urgency, hesitancy, hematuria, flank pain, genital pain MUSCULOSKELETAL: Absent: myalgia, arthralgia, joint swelling, back pain, neck pain SKIN: Absent: rash, itching, pallor HEMATOLOGIC/IMMUNOLOGIC: Absent: easy bleeding, easy bruising, lymphadenopathy, frequent infections ENDOCRINE: Absent: unexplained weight gain, unexplained weight loss, heat intolerance, cold intolerance NEUROLOGIC: Absent: headache, focal weakness or paresthesias, dizziness, unsteady gait, seizure, mental status changes, bladder or bowel incontinence PSYCHIATRIC: Absent: anxiety, depression, suicidal or homicidal ideation, hallucinations. PHYSICAL EXAMINATION GENERAL: Patient is sitting comforably in bed, Awake, alert, at baseline, in no acute distress. HEAD: Normal with no signs of trauma. EYES: EOM intact, no pallor or icterus EARS, NOSE, THROAT: Ears normal. Moist mucous membranes. NECK: Tilted on the right side, uncooperative for detailed exam. LUNGS: B/L equal air entry, Bibasilar crackles, no wheeze. HEART: Regular rate and rhythm, normal S1 and S2 without murmur, rub or gallop. ABDOMEN: Soft, nontender, not distended, normoactive bowel sounds, no guarding, no rebound, no masses. No hepatomegaly or splenomegaly. MUSCULOSKELETAL: Normal range of motion at all joints. No bony deformities or tenderness. No CVA tenderness. UPPER EXTREMITIES: 2+ pulses, warm, well-perfused. No cyanosis. No clubbing. No peripheral edema. LOWER EXTREMITIES: 2+ pulses, warm, well-perfused. No calf tenderness. No peripheral edema. NEUROLOGICAL: Cranial nerves II-XII intact. Speech-mute. Gait not observed PSYCHIATRIC: Uncooperative, Poor eye contact. SKIN: Warm, dry, normal turgor, no rashes or lesions noted, normal capillary refill. ASSESSMENT/PLAN: Patient is a 51-year-old female, resident of [facility], with significant past medical history of Down syndrome, HLD, hypothyroidism, hyponatremia, recurrent pneumonia was brought to the ED after she developed fever of 103F. # Sepsis secondary to HCAP Patient presented with fever (Tmax 103F) x 1 day; dry cough H/o recurrent pneumonia due to aspiration Recent hospitalization at [facility] on 11/10/16 admitted with the diagnosis of Sepsis secondary to Pneumonia and was discharged on Augmentin and steroids for 3 days. On arrival, patient's Temperature was 102.7 F; Tachycardic 103 bpm, Hypoxia 93 spo2 in RA; Leukocytosis 22.8; Normal lactic acid CXR- Right upper lobe infiltrate; Bibasilar infiltrates Benadryl, IV Tylenol; IV Levofloxacin 750mg; IV Vancomycin, IV zosyn. Admitted in Med-Surg IV NS @ 83mls/hr IV Vancomycin and IV Zosyn to be continued ID consult placed Nasal oxygen PRN Blood culture pending urine for Legionella antigen pending # Aspiration precaution MBS 07/2016 revealed trace aspiration on thick nectar but severely impaired esoph emptying without peristalsis, very slow passage with esophagus filling up with a few bites Dyphagia puree diet-thick Feeding only during sitting position # Hyperlipidemia Continue statin 20mg Daily # Down syndrome with (mute, self abusive, agitative on/off) Continue Aripiprazole; Buspirone 15mg PO TID # Hypothyroidism continue levothyroxine 75 mcg # Normocytic anemia H/H 10.3/32 If Hb <7g/dl, transfuse blood # FEN IV NS @ 83 mls/hr Electrolytes to be repeated tomorrow Dysphagia puree diet # Prophylaxis For DVT- On SCDs For GI- Not indicated # Code status: Full Code # Dispo: Admitted in Med-Surg. Duration of stay unknown Illness, Investigation and Plan of care explained to the patient's intensive care ambulance paramedic. She verbalized understanding. Case discussed with Dr. Thomas. Visit type - Emergency Visit Emergency Visit: Yes ED Registration Date: 12/09/16 Care time: The patient presented to the Emergency Department on the above date and was hospitalized for further evaluation of their emergent condition. - New Patient This patient is new to me today: Yes Date on this admission: 12/09/16 - Critical Care Critical Care patient: No
[2016-12-09] MEDS ORDERED: ACETAMINOPHEN 325 MG TABLET (FP) PO PRN (23:31)
[2016-12-09] MEDS ORDERED: ALBUTEROL SO4 2.5/IPRATROPIUM 0.5 INH SOL 3 ML VIAL.NEB. NEB SCH (23:45)
--- NOTE | 2016-12-10 00:42 | PN ---
<Juan Pablo Thomas - Last Filed: 12/10/16 00:41> Teaching Attending Note Name of Resident: Sylvie Siddiqui ATTENDING PHYSICIAN STATEMENT I saw and evaluated the patient. I reviewed the resident's note and discussed the case with the resident. I agree with the resident's findings and plan as documented. SUBJECTIVE: OBJECTIVE: ASSESSMENT AND PLAN: <KeiraDanny - Last Filed: 12/10/16 01:45> Teaching Attending Note ATTENDING PHYSICIAN STATEMENT I saw and evaluated the patient. I reviewed the resident's note and discussed the case with the resident. I agree with the resident's findings and plan as documented. SUBJECTIVE: The patient is a 51-year-old woman, from [facility], accompanied by home health aide, with a significant past medical history of Down -syndrome, hypercholesterolemia, hyponatremia, hypothyroidism, recurrent Pneumonia (on aspiration precautions) who presented to the emergency department via for further evaluation of cold-like symptoms. Upon ER arrival, patient was noted to have a temperature of 102.7, heart rate of 103 and hypoxic to 93% on room air. Patient is non-verbal at baseline, thus history was obtained by home health aide, who takes care of the patient daily. As per home health aide, for the past couple of days, the patient has been noted to endorse a cough and patient seems to be tilting her head to the right side for the past day or so. No decreased appetite. No noted aspirations when cough/eating. As per home health aide, no sick contacts at the custodial. Allergies: Naltrexone Past Surgical History: Bilateral cataract surgery (2007) Social History: No tobacco, ETOH or recreational drug use. Primary Care Physician: Dr. Hanson OBJECTIVE: Vital Signs: Last Vital Signs Temp Pulse Resp BP Pulse Ox 98.9 F 74 19 105/58 97 12/10/16 00:55 12/10/16 00:55 12/10/16 00:55 12/10/16 00:55 12/10/16 00:55 GENERAL: (+) Dysmorphic features consistent with Downs syndrome Non verbal. Awake, in no acute distress HEENT: PERRLA, EOMI. Moist mucosa. LUNGS: (+) poor respiratory effort. Questionable crackles at right base. HEART: Regular rate and rhythm, normal S1 and S2, no murmurs, rubs or gallops, peripheral pulses normal and equal bilaterally. ABDOMEN: Soft, nontender, normoactive bowel sounds. No guarding, no rebound. No masses EXTREMITIES: Normal inspection, Normal range of motion, no edema. No clubbing or cyanosis. No focal findings in upper/lower extremities. NEUROLOGICAL: (+) limited exam due to patient cooperation. SKIN: Warm, Dry, normal turgor, no rashes or lesions noted. Labs: CBCD WBC 22.8 K/mm3 (4.0-10.0) H D 12/09/16 14:53 RBC 3.36 M/mm3 (3.60-5.2) L 12/09/16 14:53 Hgb 10.3 GM/dL (10.7-15.3) L 12/09/16 14:53 Hct 32.0 % (32.4-45.2) L 12/09/16 14:53 MCV 95.2 fl (80-96) 12/09/16 14:53 MCHC 32.2 g/dl (32.0-36.0) 12/09/16 14:53 RDW 22.6 % (11.6-15.6) H 12/09/16 14:53 Plt Count 316 K/MM3 (134-434) D 12/09/16 14:53 MPV 9.1 fl (7.5-11.1) 12/09/16 14:53 CMP Sodium 142 mmol/L (136-145) 12/09/16 17:30 Potassium 4.5 mmol/L (3.5-5.1) 12/09/16 17:30 Chloride 104 mmol/L (98-107) 12/09/16 17:30 Carbon Dioxide 30 mmol/L (21-32) 12/09/16 17:30 Anion Gap 8 (8-16) 12/09/16 17:30 BUN 12 mg/dL (7-18) 12/09/16 17:30 Creatinine 1.0 mg/dL (0.55-1.02) D 12/09/16 17:30 Creat Clearance w eGFR 58.22 (>60) 12/09/16 17:30 Calcium 8.3 mg/dL (8.5-10.1) L 12/09/16 17:30 Total Bilirubin 0.5 mg/dL (0.2-1.0) D 12/09/16 17:30 AST 15 U/L (15-37) 12/09/16 17:30 ALT 13 U/L (12-78) D 12/09/16 17:30 Alkaline Phosphatase 64 U/L (45-117) D 12/09/16 17:30 Total Protein 6.9 g/dl (6.4-8.2) 12/09/16 17:30 Albumin 2.6 g/dl (3.4-5.0) L 12/09/16 17:30 Imaging: EXAM#: TYPE/EXAM: RESULT: [id number] RAD/CHEST X-RAY PORTABLE* Chest: Sepsis Since the prior study of 11/11/2016, the right upper lobe infiltrate has resolved. There are bibasilar infiltrates with weak inspiration and right chin artifact. Follow-up recommended Reported By: Varinder Loza MD EXAM#: TYPE/EXAM: RESULT: [id number] CT/HEAD CT WITHOUT CONTRAST Cranial CT without contrast CLINICAL INFORMATION: evaluate for CVA There is no evidence of intracranial hemorrhage. No discrete infarct is identified within the limitations of CT. The intracranial structures demonstrate no definite interval change in comparison to a previous CT exam of 07/31/2016. No obvious mass lesion is noted. There is no extra-axial fluid collection. Note is again made of mild to moderate dilatation of the ventricular system which may be on the basis of central atrophy versus stable communicating hydrocephalus. Unless otherwise clinically indicated correlate with close follow-up CT. 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 Interval development of opacification of the right maxillary sinus noted probably on the basis of chronic or subacute sinusitis. Note is again made of prominent hyperdensity involving the posterior half of the right ocular globe possibly on the basis of retinal detachment. IMPRESSION: No CT evidence of acute intracranial pathology. Note is again made of mild to moderate ventricular dilatation as discussed above. Interval development of right maxillary sinus opacification is seen consistent with chronic or subacute sinusitis. Abnormal density is again noted within the right ocular globe possibly due to retinal detachment. Ophthalmology consultation is suggested. Cerumen is noted within the external auditory canals bilaterally. Reported By: Chang Woodall MD EXAM#: TYPE/EXAM: RESULT: [id number] CT/SOFT TISSUE NECK CT WITH CONTR Neck soft tissue CT (with contrast) CLINICAL INFORMATION: evaluate for neck mass/abscess; torticollis Multiplanar imaging was performed following the intravenous administration of nonionic contrast. No discrete mass lesion, fluid collection or abnormal contrast enhancement is identified. Severe multilevel cervical disc and facet joint changes are noted. 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 In comparison to a cranial CT study of 2015 note is made of interval development of complete opacification of a mildly hypoplastic right maxillary sinus as well as moderate opacification of the right ethmoid sinus consistent with chronic versus subacute sinusitis. The head is noted to be turned rightward which may be on the basis of cord torticollis. No atlantoaxial subluxation is visualized. IMPRESSION: No definite mass lesion or fluid collection is identified. Severe multilevel cervical degenerative disc and facet joint changes are visualized. Interval development of paranasal sinus disease as discussed above. The partially imaged upper lobes demonstrate bilateral interstitial thickening suggestive of infiltrates with mild improvement in comparison to a chest CT exam of 07/31/2016. Alternatively this finding may be recurrent in nature. Reported By: Chang Woodall MD ASSESSMENT AND PLAN : Who presents with fever and found to have a white count of 22. Examine notable for right basal crackles and possible findings on chest x-ray. Patient likely with recurrent pneumonia possibly secondary to aspiration. Cultures have been obtain. Will treat with zosyn, follow up cultures, and observation. Admit to observation. Documentation prepared by Danny Crockett, acting as biomedical engineering internship for Dr. Juan Pablo Thomas MD.
[2016-12-10 02:28] VITALS: BMI 20.7
[2016-12-10] MEDS: SODIUM CHLORIDE 1,000 ML IV SCH (02:47)
[2016-12-10] MEDS ORDERED: PIPERACILLIN/TAZOB 3.375 GM/50 ML PRE-DOCKED IVPB ONE ×2 (04:00→10:00)
[2016-12-10 07:38] LABS: BASOPHIL 0.5 % (0-2.0); EOSINOPHIL 0.4 % (0-4.5); MCH 30.9 pg (25.7-33.7); MCHC 32.5 g/dl (32.0-36.0); MEAN CELL VOLUME 94.9 fl (80-96); MEAN PLT VOLUME 8.6 fl (7.5-11.1); NEUTROPHILS 81.8 % (42.8-82.8); PLATELET COUNT 238 K/MM3 (134-434); RDW 21.3 % (11.6-15.6); WHITE BLOOD COUNT 12.1 K/mm3 (4.0-10.0)
[2016-12-10] MEDS: busPIRone HCL 10 MG TABLET (FP) PO SCH ×3 (07:45→22:07)
[2016-12-10] MEDS: LEVOTHYROXINE NA 75 MCG TABLET (FP) PO SCH (07:45)
[2016-12-10 07:56] LABS: ALBUMIN 2.1 g/dl (3.4-5.0); CALCIUM 7.8 mg/dL (8.5-10.1); PHOSPHOROUS 2.4 mg/dL (2.5-4.9)
[2016-12-10 07:59] LABS: BILIRUBIN,TOTAL 0.8 mg/dL (0.2-1.0); CREATININE 1.1 mg/dL (0.55-1.02)
[2016-12-10 08:01] LABS: ACTIVATED PTT 28.2 SECONDS (26.9-34.4)
[2016-12-10 08:02] LABS: INR 1.25 (0.82-1.09); PROTHROMBIN TIME (PATIENT) 13.8 SEC (9.98-11.88)
--- NOTE | 2016-12-10 09:56 | MSN ---
Progress Note (short form) - Note Progress Note: SUBJECTIVE: Pt seen and examined at bedside. RUSS overnight. Pt is nonverbal but algorithm design engineer present and pt history and present illness discussed with her. She states she has noticed that the pt has been more fatigued and less active the past couple days with more time spent in bed. She thinks the pt looks more pale as well. She has not noticed sputum production with the patients chronic cough. No change in feedings and no change in bowel or bladder. Active Medications Generic Name Dose Route Start Last Admin Trade Name Freq PRN Reason Stop Dose Admin Acetaminophen 650 mg 12/09/16 23:31 Tylenol - PO Q6H PRN FEVER OR PAIN Albuterol/Ipratropium 1 amp 12/09/16 23:45 Duoneb - NEB BID WENDY Aripiprazole 20 mg 12/10/16 10:00 Abilify PO DAILY WENDY Ascorbic Acid 500 mg 12/10/16 10:00 Vitamin C - PO DAILY WENDY Buspirone HCl 15 mg 12/10/16 06:00 12/10/16 07:45 Buspar - PO 15 mg TID WENDY Administration Calcium Carbonate/Cholecalciferol 1 tab 12/10/16 10:00 Os-Christian 500+D - PO DAILY WENDY Sodium Chloride 1,000 mls @ 83 mls/hr 12/09/16 23:45 12/10/16 02:47 Normal Saline - IV 83 mls/hr ASDIR WENDY Administration Vancomycin HCl 250 mls @ 150 mls/hr 12/10/16 18:00 Vancomycin (Pre-Docked) IVPB DAILY@1800 [facility] Protocol Levothyroxine Sodium 75 mcg 12/10/16 07:00 12/10/16 07:45 Synthroid - PO 75 mcg ACBK WENDY Administration Loratadine 10 mg 12/10/16 10:00 Claritin - PO DAILY WENDY Montelukast Sodium 10 mg 12/10/16 22:00 Singulair - PO HS WENDY Non-Formulary Medication 20 mg 12/10/16 10:00 Lovastatin [Lovastatin] PO DAILY WENDY Pantoprazole Sodium 20 mg 12/10/16 10:00 Protonix - PO DAILY WENDY Piperacillin Sod/Tazobactam Sod 3.375 gm 12/10/16 10:00 Zosyn 3.375gm Ivpb (Pre-Docked) IVPB 12/10/16 10:01 ONCE ONE Protocol OBJECTIVE: Vital Signs Period Temp Pulse Resp BP Sys/Chinchilla Pulse Ox Last 24 Hr 97.6 F-102.7 F 73-103 18-19 0-135/0-58 93-97 GENERAL: Awake, alert, nonverbal, calm with 1 episode of self abuse NECK: -JVD HEAD: Tilted to the R, NC, AT, EOMI HEART: RRR +S1/S2, -murmurs/rubs/gallops LUNGS: Bibasilar crackles, -wheezing/rhonchi CBC, BMP 12/10/16 06:35 12/10/16 06:35 Microbiology 12/09/16 14:53 Influenza Types A,B Antigen (MARY) - Final Nasopharyngeal Swab - Final CXR (12/09/16): Bibasilar infiltrates with blunting of BL angles, resolution of RUL infiltrate when compared to CXR on 11/11/[address] (12/09/16): No acute pathology, + ventricular dilation, mild maxillary sinus opacification, abnormal R ocular globe density Soft Tissue Neck CT (12/09/16): - mass/fluid collection, severe cervical degenerative disc disease A/P: Pt is a 51 yo F resident of [facility] with a PMHx of Down syndrome, HLD, hypothyroidism, hyponatremia, and recurrent pneumonia, who presents to the ED after having a recorded fever of 103F. 1. Sepsis 2/2 to HCAP -Hx of recurrent admissions for sepsis 2/2 pneumonia -? aspiration pneumonias -Levaquin, Vanc, Zosyn given in ED -Continue IV Vanc -NS @83cc/hr -Repeat LA -Nasal O2 prn -Blood Cx pending -Urine Ag pending -ID consult pending 2. Aspiration precautions -Pt is on thick puree diet at nursing facility -MBS (07/2016): trace aspiration with thick nectar but severely impaired esophageal emptying -Swallow evaluation pending to see if pt needs repeat MBS 3. Torticollis -Recurring head tilt whenever pt becomes sick according to algorithm design engineer -Noticed the same thing before last admission one month ago to [facility] -Observe for improvement 4. Normocytic anemia -Hgb baseline seems to be below nml based on previous admissions (~10g/dL) -Iron studies pending 5. Hypophosphatemia -Replete with sodium phosphate piggyback 6. HLD -Continue Lovastatin 20mg PO daily 7. Down syndrome (mute, self abusive, agitated on/off) -Continue Aripiprazole 20mg PO daily -Continue Buspirone 15mg PO TID 8. Hypothyroidism -Continue Synthroid 75mcg PO daily 9. FEN -IVF with NS @83cc/hr -Replete hypophosphatemia -Thick pureed diet 10. DVT ppx -SCDs -Heparin 5000U SQ BID 11. Dispo -Admitted to Med-Surg. Duration of stay unknown Chang Wray, MS3 Problem List - Problems (1) Aspiration into respiratory tract (2) Leukocytosis (3) Pneumonia (4) Hyperlipidemia (5) Acute onset sepsis (6) HCAP (healthcare-associated pneumonia) (7) Sepsis (8) Down's syndrome (9) Hypothyroidism
[2016-12-10] MEDS ORDERED: PATIENT'S OWN MEDICATION (NON-FORMULARY) (Cetirizine Hcl 10 MG) PO SCH (10:00)
[2016-12-10] MEDS ORDERED: PATIENT'S OWN MEDICATION (NON-FORMULARY) (Ascorbate Calcium [Vitamin C] 500 MG) PO SCH (10:00)
[2016-12-10] MEDS ORDERED: PATIENT'S OWN MEDICATION (NON-FORMULARY) (Omeprazole 20 MG) PO SCH (10:00)
[2016-12-10] MEDS ORDERED: ARIPiprazole 20 MG TABLET PO SCH (10:00)
[2016-12-10] MEDS: ASCORBIC ACID 500 MG TABLET (FP) PO SCH (11:16)
[2016-12-10] MEDS: CALCIUM 500MG/VIT-D 200 UNITS COMBO TABLET (FP) PO SCH (11:16)
[2016-12-10] MEDS: PANTOPRAZOLE 20 MG TABLET (FP) PO SCH (11:17)
[2016-12-10] MEDS: LORATADINE 10 MG TABLET PO SCH (11:17)
[2016-12-10] MEDS ORDERED: PT OWN MED DRAWER 7, Y5N ONE ×4 (11:19→21:01)
--- NOTE | 2016-12-10 13:16 | PN ---
Physical Exam: SUBJECTIVE: Patient seen and examined Pt is awake, alert, non verbal, looks comfortble with aid at bedside feeling her no fever or chills mild non productive cough no n/v no sob OBJECTIVE: Vital Signs Period Temp Pulse Resp BP Sys/Chinchilla Pulse Ox Last 24 Hr 97.6 F-98.9 F 73-81 18-19 99-135/44-58 97-97 GENERAL: The patient is awake, alert, in no acute distress. HEAD: Normal with no signs of trauma. NECK: Trachea midline, full range of motion, supple. LUNGS: b/l basal rales to auscultation bilaterally, no wheezes, no accessory muscle use. HEART: Regular rate and rhythm, S1, S2 with systolic murmur 3/6, no rub or gallop. ABDOMEN: Soft, nontender, nondistended, normoactive bowel sounds, no guarding, no rebound, no hepatosplenomegaly, no masses. EXTREMITIES: 2+ pulses, warm, well-perfused, no edema. NEUROLOGICAL: Normal speech, gait not observed. PSYCH: Normal mood, normal affect. SKIN: Warm, dry, normal turgor, no rashes or lesions noted Laboratory Results - last 24 hr 12/10/16 12/10/16 12/10/16 06:35 06:35 06:35 WBC 12.1 H D RBC 2.97 L Hgb 9.2 L D Hct 28.2 L MCV 94.9 MCHC 32.5 RDW 21.3 H Plt Count 238 D MPV 8.6 Neutrophils % 81.8 Lymphocytes % 7.9 L Monocytes % 9.4 Eosinophils % 0.4 D Basophils % 0.5 D INR 1.25 H PTT (Actin FS) 28.2 Sodium 139 Potassium 3.6 Chloride 101 Carbon Dioxide 30 Anion Gap 8 BUN 13 Creatinine 1.1 H Creat Clearance w eGFR 52.16 Random Glucose 88 Calcium 7.8 L Phosphorus 2.4 L Magnesium 2.0 Total Bilirubin 0.8 D AST 14 L ALT 10 L D Alkaline Phosphatase 57 Total Protein 6.0 L Albumin 2.1 L Active Medications Generic Name Dose Route Start Last Admin Trade Name Freq PRN Reason Stop Dose Admin Acetaminophen 650 mg 12/09/16 23:31 Tylenol - PO Q6H PRN FEVER OR PAIN Albuterol/Ipratropium 1 amp 12/09/16 23:45 Duoneb - NEB BID WENDY Aripiprazole 20 mg 12/10/16 12:12 Abilify PO DAILY WENDY Ascorbic Acid 500 mg 12/10/16 10:00 12/10/16 11:16 Vitamin C - PO 500 mg DAILY WENDY Administration Buspirone HCl 15 mg 12/10/16 06:00 12/10/16 07:45 Buspar - PO 15 mg TID WENDY Administration Calcium Carbonate/Cholecalciferol 1 tab 12/10/16 10:00 12/10/16 11:16 Os-Christian 500+D - PO 1 tab DAILY WENDY Administration Sodium Chloride 1,000 mls @ 83 mls/hr 12/09/16 23:45 12/10/16 02:47 Normal Saline - IV 83 mls/hr ASDIR WENDY Administration Vancomycin HCl 250 mls @ 150 mls/hr 12/10/16 18:00 Vancomycin (Pre-Docked) IVPB DAILY@1800 [facility] Protocol Levothyroxine Sodium 75 mcg 12/10/16 07:00 12/10/16 07:45 Synthroid - PO 75 mcg ACBK WENDY Administration Loratadine 10 mg 12/10/16 10:00 12/10/16 11:17 Claritin - PO 10 mg DAILY WENDY Administration Montelukast Sodium 10 mg 12/10/16 22:00 Singulair - PO HS WENDY Non-Formulary Medication 20 mg 12/10/16 10:00 Lovastatin [Lovastatin] PO DAILY WENDY Pantoprazole Sodium 20 mg 12/10/16 10:00 12/10/16 11:17 Protonix - PO 20 mg DAILY WENDY Administration CBC, BMP 12/10/16 06:35 12/10/16 06:35 Microbiology 12/09/16 14:53 Nasopharyngeal Swab Influenza Types A,B Antigen (MARY) - Final 12/09/16 14:53 Nasopharyngeal Swab - Final ASSESSMENT/PLAN: 51 year old female with pmh of down syndrome, Hypothyroidism, recurrent pneumonia from [facility] long-term presented to the ED with fever, and non productive. She was found to have tachycardia, leukocytosis and new bibalisar infiltrates on CXR . Sepsis rt to HCAP likely due Aspiration In ED received Levaquin, Vancomycin, Zosyn Stat Zosyn 3.375 gm IV once dose this am ID consulted Dr Liam MCKINNON at 83 ml/h O2 prn, keep O2 sat 90% Follow blood culture Follow up Urine for pNA antigen Speech therapist consulted, No change in diet right now, small bites, assist with feeding. Aspiration precaution Hyperlipidemia Constinue Lovastain 20mg po daily hypothyroidism Synthoid 75mcg daily Po Down syndrome with behavioral disorder Continue abilify and Buspirone Normocytic anemia hgb 9.2, was 10.3 yesterday Likely due to dilution close to baseline will repeat CBC in am FEN Fluid: NS at 83 ml;/h Electrolytes: no abdnormaliteis Nutrition: Dysphagia puree diet DVT Prophylaxis: SCD Disposition: keep in hospital pending antibiotic treatment Visit type - Emergency Visit Emergency Visit: Yes ED Registration Date: 12/09/16 Care time: The patient presented to the Emergency Department on the above date and was hospitalized for further evaluation of their emergent condition. - New Patient This patient is new to me today: Yes Date on this admission: 12/10/16 - Critical Care Critical Care patient: No - Discharge Referral Referred to [facility] Med P.C.: No
--- NOTE | 2016-12-10 13:54 | CONSULT ---
Admitting History and Physical - Primary Care Physician PCP: Juan Pablo Thomas - Admission History of Present Illness: Well known to me from multiple admissions with SOB/Pna. Recent MBS, 05/15/17 was surprisingly good . Only mild aspiration noted with self drinking of thin liquid, with a responsive cough. If PNA related to aspiration, I suspect it occurs with self feeding. Staff at [facility] and [facility] educated feeding pt to reduce impulsive intake, adversely affecting oral/pharyngeal coordination of swallowing function. Pudding thick liquid continued at [facility]. The d/c rec on last admission was puree and nectar thick liquid, small amounts throughout the day as pt had demonstrated impaired esophageal emptying in the past with risk of retrograde aspiration. ] Pt loves to eat and becomes self combative if she is hungry and unhappy. 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) Pulmonary: Yes: Pneumonia Gastrointestinal: Yes: Other (see CT-chest results regarding esophageal dilation ) Endocrine: Yes: Hypothyroidism - Smoking History Smoking history: Never smoked Have you smoked in the past 12 months: No - Alcohol/Substance Use Hx Alcohol Use: No History of Substance Use: reports: None - Social History ADL: Support Services Occupation: disabled History of Recent Travel: No History - Admission Reason For Visit: LEUKOCYTOSIS/HEALTHCARE ACQ PNEUMONIA - Diagnostics X-ray: Report Reviewed - General Mental Status: Awake and Alert, Able to Follow Commands (simple) Attention: Intact Ability to Follow Directions: Fair Head/Neck Control: WFL - Hearing Hearing: Normal Speech Evaluation - Communication Primary Language: IRANIAN Communication: Yes: Simple Responses (simple sign language to communicate wants/ needs) Oral Expression Ability: Yes: Non-Verbal (but vocal) - Speech Characteristics Voice Loudness: Normal Voice Phonatory-based Quality: Yes: Normal - Language/Auditory Comprehension Observation: Comprehends Conversational Speech: Yes (understands some directives ) - Swallow Evaluation/Bedside Assessment Current Nutritional Intake: Dysphagia Pureed, Honey Textured Liquids Oral Secretions: Yes: WFL Dentition: Yes: Edentulous Facial Symmetry at Rest: Symmetrical Facial Symmetry on Retraction: Symmetrical Smile: Normal Lingual Movement: Normal, Symmetric Laryngeal Movement: Able to Palpate Rate of Intake: Impulsive Labial Seal: WFL Oral Prep Time: WFL A-P Transit: WFL Pocketing: None Coughing/Throat Clear: No Change in Voice: No Recommendations - Speech Evaluation, Impression/Plan Impression: Case discussed with resident. MBS performed recently. Risk of aspiration if self feeding impulsively, or larger meals with risk of retrograde aspiration if esophaguas does not empty quickly. - Dysphagia Impressions/Plan Dysphagia Impressions: Mild Impairment *Silent aspiration: cannot be R/O at bedside Dysphagia Treatment Plan: 1/2 tsp. at a time, Elevate HOB during feed, OOB for meals, OOB for 1 h. after meals, Other (feed slowly. several smaller meals throughout the day. No continuous drinking. Singl;e sips.) - Recommendations Diet Consistency: Dysphagia Pureed Medication Administration: Crushed with applesauce Liquids: Scott Thick Supplement: Other (Ensure compact b/n meals)
--- NOTE | 2016-12-10 14:46 | PN ---
Teaching Attending Note Name of Resident: Silverio Franco ATTENDING PHYSICIAN STATEMENT I saw and evaluated the patient. I reviewed the resident's note and discussed the case with the resident. I agree with the resident's findings and plan as documented. SUBJECTIVE:resting comfortable. nonverbal OBJECTIVE: Last Vital Signs Temp Pulse Resp BP Pulse Ox 98.1 F 73 18 135/55 97 12/10/16 06:00 12/10/16 06:00 12/10/16 06:00 12/10/16 06:00 12/10/16 00:55 General NAD CV S1 S2 RRR no murmur/rub/gallop Lungs CTA B/L anteriorly no wheezing ASSESSMENT AND PLAN: 51yo F with PMH Downs syndrome, hypothyroid and dyslipidemia presented to the ER and was admitted for further evaluation of their emergent condition 1. Sepsis due to HCAP vs aspiration PNA- Tm 102.7. recently treated for PNA. started on Vanco/Zosyn and IVF. ID consulted for further abx recommendations. swallow eval to see if aspiration risk. MBS done 5 months ago. f/u Cx 2. Normocytic anemia -dilutional component. appears to be around baseline Hgb. no indication for transfusion 3. Hypophosphatemia- Neutraphos po 4. DALE- likely due to sepsis. on IVF. avoid nephrotoxic medications 5. DVT ppx- will start hep sq
--- NOTE | 2016-12-10 14:55 | CONSULT ---
Consult Consult Specialty:: infectious diseases Reason for Consultation:: pneumonia,leukocytosis - History of Present Illness Chief Complaint: sob,hypoxic History of Present Illness: 51-year-old female, resident of [facility], was brought to the ED after she developed fever of 103F. As per the career placement specialist, patient had fever x 1 day and dry cough since 2 days. She mentions no change in behavior, patient is at baseline- mute, self abusive, agitative on/off, needs help in all daily activities, understands few sign language and obeys few commands. Patient has a h/o recurrent aspiration due to pneumonia. Since yesterday, career placement specialist has noticed that patient has been tilting her head on the right side at all times which is unusual for her. No ear discharge or recent ear infection. No h/o diarrhoea or constipation. 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) Pulmonary: Yes: Pneumonia Gastrointestinal: Yes: Other (see CT-chest results regarding esophageal dilation ) Endocrine: Yes: Hypothyroidism - Alcohol/Substance Use Hx Alcohol Use: No History of Substance Use: reports: None - Smoking History Smoking history: Never smoked Have you smoked in the past 12 months: No - Social History ADL: Support Services Occupation: disabled History of Recent Travel: No Home Medications - Allergies Allergies/Adverse Reactions: Allergies Allergy/AdvReac Type Severity Reaction Status Date / Time naltrexone HCl [From Trexan] Allergy Unknown Verified 12/09/16 14:49 - Home Medications Home Medications: Ambulatory Orders Acetaminophen [Tylenol] 325 mg PO Q4H PRN 12/09/16 Albuterol 2.5/Ipratropium 0.5 [Duoneb -] 1 amp NEB BID 12/09/16 Alendronate Sodium [Binosto] 70 mg PO WEEKLY 12/09/16 Aripiprazole [Abilify] 20 mg PO DAILY 12/09/16 Ascorbate Calcium [Vitamin C] 500 mg PO DAILY 12/09/16 Buspirone HCl [Buspar -] 15 mg PO TID 12/09/16 Calcium Carbonate/Vitamin D3 [Calcium 600 + Vit D Tablet] 1 each PO DAILY Cetirizine HCl [Zyrtec -] 10 mg PO DAILY 12/09/16 Levothyroxine [Synthroid -] 75 mcg PO DAILY 12/09/16 Lovastatin 20 mg PO DAILY 12/09/16 Montelukast Na [Singulair -] 10 mg PO HS 12/09/16 Omeprazole 20 mg PO DAILY 12/09/16 Review of Systems Unable to obtain ROS, reason: unable to obtain Physical Exam Vital Signs: Vital Signs Temperature 98.1 F 12/10/16 06:00 Pulse Rate 73 12/10/16 06:00 Respiratory Rate 18 12/10/16 06:00 Blood Pressure 135/55 12/10/16 06:00 O2 Sat by Pulse Oximetry (%) 97 12/10/16 00:55 Constitutional: Yes: Mild Distress, Other (looks tired and fatigued) Eyes: Yes: Conjunctiva Clear Cardiovascular: Yes: Regular Rate and Rhythm Respiratory: Yes: Poor Air Entry, Rhonchi Gastrointestinal: Yes: Normal Bowel Sounds, Soft Musculoskeletal: Yes: WNL Extremities: Yes: WNL Neurological: Yes: Alert, Other Psychiatric: Yes: Alert, Other Labs: CBC, BMP 12/10/16 06:35 12/10/16 06:35 Imaging - Results Chest X-ray: Report Reviewed, Image Reviewed Cat Scan: Report Reviewed, Image Reviewed Assessment/Plan Patient is a 51-year-old female, resident of [facility], with significant past medical history of Down syndrome, HLD, hypothyroidism, hyponatremia, recurrent pneumonia was brought to the ED after she developed fever of 103F. # Sepsis secondary to HCAP # Aspiration precaution # Hyperlipidemia # Down syndrome with (mute, self abusive, agitative on/off) # Hypothyroidism # Normocytic anemia plan will start on zosyn ]aspiration precautions continue to monitor wbc rest as per team
[2016-12-10] MEDS ORDERED: NAPH,MB-DB/K PH,MBDB POWDER PACKET PO ONE (15:00)
[2016-12-10] MEDS: PIPERACILLIN/TAZOB 3.375 GM 50 ML IVPB SCH ×2 (15:13→22:07)
[2016-12-10] MEDS ORDERED: ALBUTEROL SO4 0.083% IH SOL 2.5 MG/3 ML VIAL.NEB. NEB PRN (15:57)
--- NOTE | 2016-12-10 17:36 | EKG ---
Test Reason : Blood Pressure : / mmHG Vent. Rate : 099 BPM Atrial Rate : 099 BPM P-R Int : 130 ms QRS Dur : 076 ms QT Int : 314 ms P-R-T Axes : 051 026 074 degrees QTc Int : 402 ms NORMAL SINUS RHYTHM NONSPECIFIC T WAVE ABNORMALITY ABNORMAL ECG WHEN COMPARED WITH ECG OF 10-NOV-2016 14:13, Confirmed by ALBERTO FELICIANO MD ([id number]) on 12/10/2016 5:35:46 PM Referred By: Confirmed By:ALBERTO FELICIANO MD
[2016-12-10] MEDS ORDERED: VANCOMYCIN 1 GRAM (PRE-DOCKED) 250 ML IVPB SCH (18:00)
[2016-12-10] MEDS: HEPARIN NA (PORCINE) 5,000 UNITS/ML 1ML VIAL SQ SCH (22:08)
[2016-12-10] MEDS: MONTELUKAST NA 10 MG TABLET PO SCH (22:08)
[2016-12-11] MEDS: SODIUM CHLORIDE 1,000 ML IV SCH (01:26)
[2016-12-11] MEDS: PIPERACILLIN/TAZOB 3.375 GM 50 ML IVPB SCH ×3 (03:03→17:49)
[2016-12-11] MEDS ORDERED: PT OWN MED DRAWER 7, Y5N ONE ×4 (06:01→22:14)
[2016-12-11] MEDS: ALBUTEROL SO4 2.5/IPRATROPIUM 0.5 INH SOL 3 ML VIAL.NEB. NEB SCH ×4 (06:29→18:03)
[2016-12-11] MEDS: LEVOTHYROXINE NA 75 MCG TABLET (FP) PO SCH (06:33)
[2016-12-11] MEDS: busPIRone HCL 10 MG TABLET (FP) PO SCH ×3 (06:33→22:18)
--- NOTE | 2016-12-11 08:10 | PN ---
Physical Exam: SUBJECTIVE: Patient seen and examined Pt is eating with sitter feeding her occasional coughing non productive per sitter the patient is better but still slower than her normal self Pt had fever overnight Tmax 101.4 OBJECTIVE: Vital Signs Period Temp Pulse Resp BP Sys/Chinchilla Pulse Ox Last 24 Hr 97.3 F-101.4 F 52-84 18-20 77-130/41-75 94-94 GENERAL: The patient is awake, alert, in no acute distress. HEAD: Normal with no signs of trauma. NECK: Trachea midline, full range of motion, supple. LUNGS: b/l basal rales to auscultation bilaterally, no wheezes, no accessory muscle use. HEART: Regular rate and rhythm, S1, S2 with systolic murmur 3/6, no rub or gallop. ABDOMEN: Soft, nontender, nondistended, normoactive bowel sounds, no guarding, no rebound, no hepatosplenomegaly, no masses. EXTREMITIES: 2+ pulses, warm, well-perfused, no edema. NEUROLOGICAL: Normal speech, gait not observed. PSYCH: Normal mood, normal affect. SKIN: Warm, dry, normal turgor, no rashes or lesions noted Laboratory Results - last 24 hr 12/10/16 06:35 INR 1.25 H PTT (Actin FS) 28.2 Active Medications Generic Name Dose Route Start Last Admin Trade Name Freq PRN Reason Stop Dose Admin Acetaminophen 650 mg 12/09/16 23:31 12/10/16 22:08 Tylenol - PO 650 mg Q6H PRN Administration FEVER OR PAIN Albuterol Sulfate 1 amp 12/10/16 15:57 Ventolin 0.083% Nebulizer Soln - NEB Q4H PRN SHORT OF BREATH/WHEEZING Albuterol/Ipratropium 1 amp 12/10/16 18:00 12/11/16 06:29 Duoneb - NEB 1 amp QIDR WENDY Administration Aripiprazole 20 mg 12/10/16 12:12 Abilify PO DAILY WENDY Ascorbic Acid 500 mg 12/10/16 10:00 12/10/16 11:16 Vitamin C - PO 500 mg DAILY WENDY Administration Buspirone HCl 15 mg 12/10/16 06:00 12/11/16 06:33 Buspar - PO 15 mg TID WENDY Administration Calcium Carbonate/Cholecalciferol 1 tab 12/10/16 10:00 12/10/16 11:16 Os-Christian 500+D - PO 1 tab DAILY WENDY Administration Heparin Sodium (Porcine) 5,000 unit 12/10/16 22:00 12/10/16 22:08 Heparin - SQ 5,000 unit BID WENDY Administration Sodium Chloride 1,000 mls @ 83 mls/hr 12/09/16 23:45 12/11/16 01:26 Normal Saline - IV 83 mls/hr ASDIR WENDY Administration Piperacillin Sod/Tazobactam Sod 50 mls @ 100 mls/hr 12/10/16 15:00 12/11/16 03: 03 Zosyn 3.375gm Ivpb (Pre-Docked) IVPB 100 mls/hr Q8H-IV WENDY Administration Protocol Levothyroxine Sodium 75 mcg 12/10/16 07:00 12/11/16 06:33 Synthroid - PO 75 mcg ACBK WENDY Administration Loratadine 10 mg 12/10/16 10:00 12/10/16 11:17 Claritin - PO 10 mg DAILY WENDY Administration Montelukast Sodium 10 mg 12/10/16 22:00 12/10/16 22:08 Singulair - PO 10 mg HS WENDY Administration Non-Formulary Medication 20 mg 12/10/16 10:00 Lovastatin [Lovastatin] PO DAILY WENDY Pantoprazole Sodium 20 mg 12/10/16 10:00 12/10/16 11:17 Protonix - PO 20 mg DAILY WENDY Administration CBC, BMP 12/10/16 06:35 12/10/16 06:35 Microbiology 12/09/16 14:53 Nasopharyngeal Swab Influenza Types A,B Antigen (MARY) - Final 12/09/16 14:53 Nasopharyngeal Swab - Final 12/09/16 14:53 Nasopharyngeal Swab Respiratory Virus Panel - Preliminary 12/09/16 14:53 Blood - Peripheral Venous Blood Culture - Preliminary NO GROWTH OBTAINED AFTER 24 HOURS, INCUBATION TO CONTINUE FOR 4 DAYS. 12/09/16 14:53 Blood - Peripheral Venous Blood Culture - Preliminary NO GROWTH OBTAINED AFTER 24 HOURS, INCUBATION TO CONTINUE FOR 4 DAYS. ASSESSMENT/PLAN: 51 year old female with pmh of down syndrome, Hypothyroidism, recurrent pneumonia from [facility] presented to the ED with fever, and non productive. She was found to have tachycardia, leukocytosis and new bibalisar infiltrates on CXR . Sepsis rt to HCAP likely due Aspiration In ED received Levaquin, Vancomycin, Zosyn on Zosyn 3.375 gm IV q8h day 2. had fever last night, still coughing, still slower than normal per home health aid that knows her baseline, lung sounds still with rales at base. ID consulted Dr Liam MCKINNON at 83 ml/, will decrease to 42ml/h O2 prn, keep O2 sat 90% Follow blood culture Follow up Urine for pNA antigen Speech therapist consulted, No change in diet right now, small bites, assist with feeding. Aspiration precaution Hyperlipidemia Constinue Lovastain 20mg po daily hypothyroidism Synthoid 75mcg daily Po Down syndrome with behavioral disorder Continue abilify and Buspirone Normocytic anemia hgb 9.2, was 10.3 yesterday Likely due to dilution close to baseline pending am labs will repeat CBC in am FEN Fluid: NS at 42ml/h Electrolytes: no abnormalities Nutrition: Dysphagia puree diet DVT Prophylaxis: SCD Disposition: keep in hospital until clinical improvement of sepsis/pneumonia, continue Iv antibiotics Visit type - Emergency Visit Emergency Visit: Yes ED Registration Date: 12/09/16 Care time: The patient presented to the Emergency Department on the above date and was hospitalized for further evaluation of their emergent condition. - New Patient This patient is new to me today: Yes - Critical Care Critical Care patient: No - Discharge Referral Referred to [facility] Med P.C.: No
[2016-12-11] MEDS ORDERED: SODIUM CHLORIDE 1,000 ML IV SCH (08:23)
[2016-12-11 08:38] LABS: MCH 31.6 pg (25.7-33.7); MCHC 33.2 g/dl (32.0-36.0); MEAN CELL VOLUME 95.3 fl (80-96); MEAN PLT VOLUME 8.7 fl (7.5-11.1); PLATELET COUNT 230 K/MM3 (134-434); RDW 21.1 % (11.6-15.6); WHITE BLOOD COUNT 8.5 K/mm3 (4.0-10.0)
[2016-12-11 09:10] LABS: CALCIUM 7.3 mg/dL (8.5-10.1); MAGNESIUM 2.2 mg/dL (1.8-2.4)
[2016-12-11 09:12] LABS: CREATININE 0.8 mg/dL (0.55-1.02); PHOSPHOROUS 2.8 mg/dL (2.5-4.9)
[2016-12-11] MEDS: CALCIUM 500MG/VIT-D 200 UNITS COMBO TABLET (FP) PO SCH (09:37)
[2016-12-11] MEDS: ASCORBIC ACID 500 MG TABLET (FP) PO SCH (09:37)
[2016-12-11] MEDS: PANTOPRAZOLE 20 MG TABLET (FP) PO SCH (09:37)
[2016-12-11] MEDS: LORATADINE 10 MG TABLET PO SCH (09:38)
[2016-12-11] MEDS: ARIPiprazole 10 MG TABLET PO SCH (09:39)
[2016-12-11] MEDS: HEPARIN NA (PORCINE) 5,000 UNITS/ML 1ML VIAL SQ SCH ×2 (09:40→22:18)
--- NOTE | 2016-12-11 11:31 | MSN ---
Progress Note (short form) - Note Progress Note: SUBJECTIVE: Pt seen and examined at bedside. RUSS overnight. Pt had recorded fevers of 101.4 and 100.4 ON. Pt received Tylenol which brought the fever down when temperature taken this morning. Pt is nonverbal but director of campus recreation present and pt history and present illness discussed with her. She states that since her last discharge from [facility] last month the pt has not been feeding herself. Instead the pt's caretakers are doing the oral feedings. This is the protocol recommended upon discharge last admission. Active Medications Generic Name Dose Route Start Last Admin Trade Name Freq PRN Reason Stop Dose Admin Acetaminophen 650 mg 12/09/16 23:31 12/10/16 22:08 Tylenol - PO 650 mg Q6H PRN Administration FEVER OR PAIN Albuterol Sulfate 1 amp 12/10/16 15:57 Ventolin 0.083% Nebulizer Soln - NEB Q4H PRN SHORT OF BREATH/WHEEZING Albuterol/Ipratropium 1 amp 12/10/16 18:00 12/11/16 06:29 Duoneb - NEB 1 amp QIDR WENDY Administration Aripiprazole 20 mg 12/10/16 12:12 12/11/16 09:39 Abilify PO 20 mg DAILY WENDY Administration Ascorbic Acid 500 mg 12/10/16 10:00 12/11/16 09:37 Vitamin C - PO 500 mg DAILY WENDY Administration Buspirone HCl 15 mg 12/10/16 06:00 12/11/16 06:33 Buspar - PO 15 mg TID WENDY Administration Calcium Carbonate/Cholecalciferol 1 tab 12/10/16 10:00 12/11/16 09:37 Os-Christian 500+D - PO 1 tab DAILY WENDY Administration Heparin Sodium (Porcine) 5,000 unit 12/10/16 22:00 12/11/16 09:40 Heparin - SQ 5,000 unit BID WENDY Administration Piperacillin Sod/Tazobactam Sod 50 mls @ 100 mls/hr 12/10/16 15:00 12/11/16 09: 41 Zosyn 3.375gm Ivpb (Pre-Docked) IVPB 100 mls/hr Q8H-IV WENDY Administration Protocol Sodium Chloride 1,000 mls @ 42 mls/hr 12/11/16 08:23 12/11/16 09:40 Normal Saline - IV Not Given ASDIR WENDY Levothyroxine Sodium 75 mcg 12/10/16 07:00 12/11/16 06:33 Synthroid - PO 75 mcg ACBK WENDY Administration Loratadine 10 mg 12/10/16 10:00 12/11/16 09:38 Claritin - PO 10 mg DAILY WENDY Administration Montelukast Sodium 10 mg 12/10/16 22:00 12/10/16 22:08 Singulair - PO 10 mg HS WENDY Administration Non-Formulary Medication 20 mg 12/10/16 10:00 Lovastatin [Lovastatin] PO DAILY WENDY Pantoprazole Sodium 20 mg 12/10/16 10:00 12/11/16 09:37 Protonix - PO 20 mg DAILY WENDY Administration OBJECTIVE: Vital Signs Period Temp Pulse Resp BP Sys/Chinchilla Pulse Ox Last 24 Hr 97.3 F-101.4 F 52-84 20-20 90-130/45-75 94 GENERAL: Awake, alert, nonverbal, calm NECK: -JVD HEAD: Tilted to the R, NC, AT, EOMI HEART: RRR, +S1/S2, + systolic murmur > @RUSB, -rubs/gallops LUNGS: Bibasilar crackles, -wheezing/rhonchi CBC, BMP 12/11/16 08:00 12/11/16 07:35 Microbiology 12/09/16 14:53 Urine Culture - Final Urine - Urine Clean Catch NO GROWTH OBTAINED 12/09/16 14:53 Blood Culture - Preliminary Blood - Peripheral Venous NO GROWTH OBTAINED AFTER 24 HOURS, INCUBATION TO CONTINUE FOR 4 DAYS. 12/09/16 14:53 Blood Culture - Preliminary Blood - Peripheral Venous NO GROWTH OBTAINED AFTER 24 HOURS, INCUBATION TO CONTINUE FOR 4 DAYS. 12/09/16 14:53 Respiratory Virus Panel - Preliminary Nasopharyngeal Swab A/P: Pt is a 51 yo F resident of [facility] with a PMHx of Down syndrome, HLD, hypothyroidism, hyponatremia, and recurrent pneumonia, who presents to the ED after having a recorded fever of 103F. Pt was found to be septic upon admission. 1. Sepsis 2/2 to HCAP vs. aspiration PNA -Hx of recurrent admissions for sepsis 2/2 PNA -? aspiration pneumonias. Before last discharge from [facility], pt was feeding herself and has a habit to eat very quickly, increasing her risk of aspiration. Since last discharge, caretakers have been doing the pt's feedings in order to decrease this risk -Levaquin, Vanc, Zosyn given in ED -ID consult appreciated. DC IV Vanc. Continue IV Zosyn 3.375g Q8H (day 2) -NS @83cc/hr -Nasal O2 prn -Blood Cx NGTD x24hrs -Urine Cx NGTD -Urine Ag pending 2. Aspiration precautions -Pt is on thick puree diet at nursing facility. Cont with that diet in hospital -MBS (07/2016): trace aspiration with thick nectar but severely impaired esophageal emptying. Small, frequent feedings were recommended -Swallow evaluation appreciated. No need for MBS this admission. Continue current diet with director of campus recreation feedings 3. Normocytic anemia -Hgb baseline seems to be below nml based on previous admissions (~10g/dL) -Iron studies pending 4. DALE -Likely 2/2 sepsis -Resolved 5. Hypophosphatemia -Resolved 6. Torticollis -Recurring head tilt whenever pt becomes sick according to director of campus recreation -Noticed the same thing before last admission one month ago to [facility] -Observe for improvement 7. HLD -Continue Lovastatin 20mg PO daily 8. Down syndrome (mute, self abusive, agitated on/off) -Continue Aripiprazole 20mg PO daily -Continue Buspirone 15mg PO TID 9. Hypothyroidism -Continue Synthroid 75mcg PO daily 10. FEN -IVF with NS @83cc/hr -BMP WNL. Continue to monitor and replete as needed -Thick pureed diet 11. DVT ppx -SCDs -Heparin 5000U SQ BID 12. Dispo -Admitted to Med-Surg. Duration of stay unknown. Will need full course of IV ABX. Chang Wray, MS3 Problem List - Problems (1) Aspiration into respiratory tract (2) Leukocytosis (3) Pneumonia (4) Hyperlipidemia (5) Acute onset sepsis (6) HCAP (healthcare-associated pneumonia) (7) Sepsis (8) Down's syndrome (9) Hypothyroidism
--- NOTE | 2016-12-11 12:47 | PN ---
Progress Note, [employer] - Note Progress Note: Selected Entries 12/10/16 12/10/16 12/10/16 00:55 06:00 09:00 Breakfast Lunch Supper Temperature 98.9 F 98.1 F 97.5 F L 12/10/16 12/10/16 12/10/16 15:03 18:57 21:03 Breakfast 50% Lunch 75% Supper 75% Temperature 98.2 F 101.4 F H 12/10/16 12/11/16 12/11/16 22:00 01:00 05:00 Breakfast Lunch Supper Temperature 100.4 F H 97.5 F L 97.3 F L Laboratory Tests 12/10/16 12/11/16 06:35 08:00 WBC 12.1 H D 8.5 Overtly tolerating diet. Reviewed swallowing recommendations again with detention aid, and staff.
--- NOTE | 2016-12-11 14:14 | PN ---
Teaching Attending Note Name of Resident: Silverio Franco ATTENDING PHYSICIAN STATEMENT I saw and evaluated the patient. I reviewed the resident's note and discussed the case with the resident. I agree with the resident's findings and plan as documented. SUBJECTIVE:resting comfortable, nonverbal OBJECTIVE: Last Vital Signs Temp Pulse Resp BP Pulse Ox 97.3 F L 52 L 20 91/45 94 L 12/11/16 05:00 12/11/16 05:00 12/11/16 05:00 12/11/16 05:00 12/10/16 21:00 General NAD CV S1 S2 RRR no murmur/rub/gallop Lungs CTA B/L anteriorly no wheezing ASSESSMENT AND PLAN: 51yo F with PMH Downs syndrome, hypothyroid and dyslipidemia presented to the ER and was admitted for further evaluation of their emergent condition 1. Sepsis due to HCAP vs aspiration PNA-afebrile. vanco d/c and currently only on zosyn. will d/c IVF as eating well. aspiration precautions when eating. no self feeding.. f/u Cx 2. Normocytic anemia -dilutional component. appears to be around baseline Hgb. no indication for transfusion 3. Hypophosphatemia- resolved 4. DALE- likely due to sepsis. resolved. avoid nephrotoxic medications 5. DVT ppx- hep sq
--- NOTE | 2016-12-11 15:27 | PN ---
Progress Note, Physician History of Present Illness: patient starting to look better still with cough - Current Medication List Current Medications: Active Medications Acetaminophen (Tylenol -) 650 mg PO Q6H PRN PRN Reason: FEVER OR PAIN Last Admin: 12/10/16 22:08 Dose: 650 mg Albuterol Sulfate (Ventolin 0.083% Nebulizer Soln -) 1 amp NEB Q4H PRN PRN Reason: SHORT OF BREATH/WHEEZING Albuterol/Ipratropium (Duoneb -) 1 amp NEB QIDR [facility] Last Admin: 12/11/16 11:15 Dose: Not Given Aripiprazole (Abilify) 20 mg PO DAILY [facility] Last Admin: 12/11/16 09:39 Dose: 20 mg Ascorbic Acid (Vitamin C -) 500 mg PO DAILY [facility] Last Admin: 12/11/16 09:37 Dose: 500 mg Buspirone HCl (Buspar -) 15 mg PO TID [facility] Last Admin: 12/11/16 14:42 Dose: 15 mg Calcium Carbonate/Cholecalciferol (Os-Christian 500+D -) 1 tab PO DAILY [facility] Last Admin: 12/11/16 09:37 Dose: 1 tab Heparin Sodium (Porcine) (Heparin -) 5,000 unit SQ BID [facility] Last Admin: 12/11/16 09:40 Dose: 5,000 unit Piperacillin Sod/Tazobactam Sod (Zosyn 3.375gm Ivpb (Pre-Docked)) 50 mls @ 100 mls/hr IVPB Q8H-IV [facility] PRN Reason: Protocol Last Admin: 12/11/16 09:41 Dose: 100 mls/hr Levothyroxine Sodium (Synthroid -) 75 mcg PO ACBK [facility] Last Admin: 12/11/16 06:33 Dose: 75 mcg Loratadine (Claritin -) 10 mg PO DAILY [facility] Last Admin: 12/11/16 09:38 Dose: 10 mg Montelukast Sodium (Singulair -) 10 mg PO HS [facility] Last Admin: 12/10/16 22:08 Dose: 10 mg Non-Formulary Medication (Lovastatin [Lovastatin]) 20 mg PO DAILY [facility] Pantoprazole Sodium (Protonix -) 20 mg PO DAILY [facility] Last Admin: 12/11/16 09:37 Dose: 20 mg - Objective Vital Signs: Vital Signs Temperature 97.5 F L 12/11/16 14:25 Pulse Rate 66 12/11/16 14:25 Respiratory Rate 20 12/11/16 05:00 Blood Pressure 128/70 12/11/16 14:25 O2 Sat by Pulse Oximetry (%) 94 L 12/10/16 21:00 Constitutional: Yes: No Distress, Calm Cardiovascular: Yes: Regular Rate and Rhythm Respiratory: Yes: Regular, Poor Air Entry (bases), Rhonchi Gastrointestinal: Yes: Normal Bowel Sounds, Soft Musculoskeletal: Yes: WNL Extremities: Yes: WNL Neurological: Yes: Alert, Other Psychiatric: Yes: Alert, Other Labs: CBC, BMP 12/11/16 08:00 12/11/16 07:35 INR, PTT INR 1.25 (0.82-1.09) H 12/10/16 06:35 Assessment/Plan Patient is a 51-year-old female, resident of [facility], with significant past medical history of Down syndrome, HLD, hypothyroidism, hyponatremia, recurrent pneumonia was brought to the ED after she developed fever of 103F. # Sepsis secondary to HCAP # Aspiration precaution # Hyperlipidemia # Down syndrome with (mute, self abusive, agitative on/off) # Hypothyroidism # Normocytic anemia plan continue abx wbc normalized aspiration precautions
[2016-12-11] MEDS: MONTELUKAST NA 10 MG TABLET PO SCH (22:18)
[2016-12-12] MEDS: ALBUTEROL SO4 2.5/IPRATROPIUM 0.5 INH SOL 3 ML VIAL.NEB. NEB SCH ×4 (00:21→19:02)
[2016-12-12] MEDS: PIPERACILLIN/TAZOB 3.375 GM 50 ML IVPB SCH ×3 (02:12→18:23)
[2016-12-12] MEDS ORDERED: PT OWN MED DRAWER 7, Y5N ONE ×2 (05:56→11:28)
[2016-12-12] MEDS: LEVOTHYROXINE NA 75 MCG TABLET (FP) PO SCH (06:39)
[2016-12-12] MEDS: busPIRone HCL 10 MG TABLET (FP) PO SCH ×3 (06:39→22:12)
[2016-12-12] MEDS: HEPARIN NA (PORCINE) 5,000 UNITS/ML 1ML VIAL SQ SCH ×2 (11:30→22:12)
[2016-12-12] MEDS: CALCIUM 500MG/VIT-D 200 UNITS COMBO TABLET (FP) PO SCH (11:30)
[2016-12-12] MEDS: LORATADINE 10 MG TABLET PO SCH (11:30)
[2016-12-12] MEDS: ASCORBIC ACID 500 MG TABLET (FP) PO SCH (11:30)
[2016-12-12] MEDS: PANTOPRAZOLE 20 MG TABLET (FP) PO SCH (11:30)
[2016-12-12] MEDS: ARIPiprazole 10 MG TABLET PO SCH (11:31)
--- NOTE | 2016-12-12 11:37 | PN ---
Progress Note, [employer] - Note Progress Note: Selected Entries 12/10/16 12/10/16 12/10/16 00:55 06:00 09:00 Breakfast Lunch Supper Temperature 98.9 F 98.1 F 97.5 F L 12/10/16 12/10/16 12/10/16 15:03 18:57 21:03 Breakfast 50% Lunch 75% Supper 75% Temperature 98.2 F 101.4 F H 12/10/16 12/11/16 12/11/16 22:00 01:00 05:00 Breakfast Lunch Supper Temperature 100.4 F H 97.5 F L 97.3 F L Laboratory Tests 12/10/16 12/11/16 06:35 08:00 WBC 12.1 H D 8.5 Selected Entries 12/09/16 12/09/16 12/10/16 14:43 23:29 00:55 Breakfast Lunch Supper Temperature 102.7 F H 97.6 F 98.9 F 12/10/16 12/10/16 12/10/16 06:00 09:00 15:03 Breakfast Lunch Supper Temperature 98.1 F 97.5 F L 98.2 F 12/10/16 12/10/16 12/11/16 21:03 22:00 01:00 Breakfast Lunch Supper Temperature 101.4 F H 100.4 F H 97.5 F L 12/11/16 12/11/16 12/11/16 05:00 09:00 14:25 Breakfast 75% Lunch 75% Supper Temperature 97.3 F L 97.8 F 97.5 F L 12/11/16 12/12/16 12/12/16 21:12 05:00 10:10 Breakfast 75% Lunch Supper 75% Temperature 99.9 F H 99.8 F H Laboratory Tests 12/10/16 12/11/16 06:35 08:00 WBC 12.1 H D 8.5 Overtly tolerating diet. Reviewed swallowing recommendations again with new fci aid, and staff.
--- NOTE | 2016-12-12 13:04 | MSN ---
Progress Note (short form) - Note Progress Note: SUBJECTIVE: Pt seen and examined at bedside. RUSS overnight. Pt had recorded fevers of 101.4 and 100.4 ON. Pt received Tylenol which brought the fever down when temperature taken this morning. Pt is nonverbal but grip assembler present and pt history and present illness discussed with her. She states that since her last discharge from [facility] last month the pt has not been feeding herself. Instead the pt's caretakers are doing the oral feedings. This is the protocol recommended upon discharge last admission. Active Medications Generic Name Dose Route Start Last Admin Trade Name Freq PRN Reason Stop Dose Admin Acetaminophen 650 mg 12/09/16 23:31 12/10/16 22:08 Tylenol - PO 650 mg Q6H PRN Administration FEVER OR PAIN Albuterol Sulfate 1 amp 12/10/16 15:57 Ventolin 0.083% Nebulizer Soln - NEB Q4H PRN SHORT OF BREATH/WHEEZING Albuterol/Ipratropium 1 amp 12/10/16 18:00 12/12/16 11:33 Duoneb - NEB 1 amp QIDR [facility]END[facility] Administration Aripiprazole 20 mg 12/10/16 12:12 12/12/16 11:31 Abilify PO 20 mg DAILY WEND[facility] Administration Ascorbic Acid 500 mg 12/10/16 10:00 12/12/16 11:30 Vitamin C - PO 500 mg DAILY [facility]END[facility] Administration Buspirone HCl 15 mg 12/10/16 06:00 12/12/16 06:39 Buspar - PO 15 mg TID WENDY Administration Calcium Carbonate/Cholecalciferol 1 tab 12/10/16 10:00 12/12/16 11:30 Os-Christian 500+D - PO 1 tab DAILY [facility] Administration Heparin Sodium (Porcine) 5,000 unit 12/10/16 22:00 12/12/16 11:30 Heparin - SQ 5,000 unit BID [facility]ENDY Administration Piperacillin Sod/Tazobactam Sod 50 mls @ 100 mls/hr 12/10/16 15:00 12/12/16 11: 30 Zosyn 3.375gm Ivpb (Pre-Docked) IVPB 100 mls/hr Q8H-IV W[facility] Administration Protocol Levothyroxine Sodium 75 mcg 12/10/16 07:00 12/12/16 06:39 Synthroid - PO 75 mcg ACBK [facility] Administration Loratadine 10 mg 12/10/16 10:00 12/12/16 11:30 Claritin - PO 10 mg DAILY [facility] Administration Montelukast Sodium 10 mg 12/10/16 22:00 12/11/16 22:18 Singulair - PO 10 mg HS [facility]Y Administration Non-Formulary Medication 20 mg 12/10/16 10:00 Lovastatin [Lovastatin] PO DAILY [facility] Pantoprazole Sodium 20 mg 12/10/16 10:00 12/12/16 11:30 Protonix - PO 20 mg DAILY [facility]END[facility] Administration OBJECTIVE: Vital Signs Period Temp Pulse Resp BP Sys/Chinchilla Pulse Ox Last 24 Hr 97.5 F-99.9 F 66-106 20-20 126-140/56-77 93 GENERAL: Awake, alert, nonverbal, calm NECK: -JVD HEAD: NC, AT, EOMI, -scleral icterus/injection HEART: RRR, +S1/S2, + systolic murmur > @RUSB, -rubs/gallops LUNGS: Bibasilar crackles, -wheezing/rhonchi CBC, BMP 12/11/16 08:00 12/11/16 07:35 Microbiology 12/09/16 14:53 Blood Culture - Preliminary Blood - Peripheral Venous NO GROWTH OBTAINED AFTER 48 HOURS, INCUBATION TO CONTINUE FOR 3 DAYS. 12/09/16 14:53 Blood Culture - Preliminary Blood - Peripheral Venous NO GROWTH OBTAINED AFTER 48 HOURS, INCUBATION TO CONTINUE FOR 3 DAYS. 12/09/16 14:53 Urine Culture - Final Urine - Urine Clean Catch NO GROWTH OBTAINED A/P: Pt is a 51 yo F resident of [facility] with a PMHx of Down syndrome, HLD, hypothyroidism, hyponatremia, and recurrent pneumonia, who presents to the ED after having a recorded fever of 103F. Pt was found to be septic upon admission. 1. Sepsis 2/2 to HCAP vs. aspiration PNA -Improving with normalized WBC and no recorded fevers x24hrs -Hx of recurrent admissions for sepsis 2/2 PNA -? aspiration pneumonias. Before last discharge from [facility], pt was feeding herself and has a habit to eat very quickly, increasing her risk of aspiration. Since last discharge, caretakers have been doing the pt's feedings in order to decrease this risk -Levaquin, Vanc, Zosyn given in ED -ID consult appreciated. DC IV Vanc. Continue IV Zosyn 3.375g Q8H (day 3). Need to find out from ID if 5 vs. 7 days IV ABX -IVF stopped -Nasal O2 prn -Blood Cx NGTD x48hrs -Urine Cx NGTD -Urine Ag pending 2. Aspiration precautions -Pt is on thick puree diet at nursing facility. Cont with that diet in hospital -MBS (07/2016): trace aspiration with thick nectar but severely impaired esophageal emptying. Small, frequent feedings were recommended -Swallow evaluation appreciated. No need for MBS this admission. Continue current diet with grip assembler feedings 3. Normocytic anemia -Hgb baseline seems to be below nml based on previous admissions (~10g/dL) 4. DALE -Likely 2/2 sepsis -Resolved 5. Hypophosphatemia -Resolved 6. Torticollis -Recurring head tilt whenever pt becomes sick according to grip assembler -Noticed the same thing before last admission one month ago to [facility] -Observe for improvement 7. HLD -Continue Lovastatin 20mg PO daily 8. Down syndrome (mute, self abusive, agitated on/off) -Continue Aripiprazole 20mg PO daily -Continue Buspirone 15mg PO TID 9. Hypothyroidism -Continue Synthroid 75mcg PO daily 10. FEN -IVF stopped. Pt is tolerating PO diet and HD stable -BMP WNL. Continue to monitor and replete as needed -Thick pureed diet 11. DVT ppx -SCDs -Heparin 5000U SQ BID 12. Dispo -Admitted to Med-Surg. Duration of stay unknown. Will need full course of IV ABX (5 vs. 7 days) Chang Wray, MS3 Problem List - Problems (1) Aspiration into respiratory tract (2) Leukocytosis (3) Pneumonia (4) Hyperlipidemia (5) Acute onset sepsis (6) HCAP (healthcare-associated pneumonia) (7) Sepsis (8) Down's syndrome (9) Hypothyroidism
--- NOTE | 2016-12-12 15:35 | PN ---
Progress Note, Physician History of Present Illness: patient starting to look better still with cough no new issues - Current Medication List Current Medications: Active Medications Acetaminophen (Tylenol -) 650 mg PO Q6H PRN PRN Reason: FEVER OR PAIN Last Admin: 12/10/16 22:08 Dose: 650 mg Albuterol Sulfate (Ventolin 0.083% Nebulizer Soln -) 1 amp NEB Q4H PRN PRN Reason: SHORT OF BREATH/WHEEZING Albuterol/Ipratropium (Duoneb -) 1 amp NEB QIDR [facility] Last Admin: 12/12/16 11:33 Dose: 1 amp Aripiprazole (Abilify) 20 mg PO DAILY [facility] Last Admin: 12/12/16 11:31 Dose: 20 mg Ascorbic Acid (Vitamin C -) 500 mg PO DAILY [facility] Last Admin: 12/12/16 11:30 Dose: 500 mg Buspirone HCl (Buspar -) 15 mg PO TID [facility] Last Admin: 12/12/16 13:59 Dose: 15 mg Calcium Carbonate/Cholecalciferol (Os-Christian 500+D -) 1 tab PO DAILY [facility] Last Admin: 12/12/16 11:30 Dose: 1 tab Heparin Sodium (Porcine) (Heparin -) 5,000 unit SQ BID [facility] Last Admin: 12/12/16 11:30 Dose: 5,000 unit Piperacillin Sod/Tazobactam Sod (Zosyn 3.375gm Ivpb (Pre-Docked)) 50 mls @ 100 mls/hr IVPB Q8H-IV [facility]ENDY PRN Reason: Protocol Last Admin: 12/12/16 11:30 Dose: 100 mls/hr Levothyroxine Sodium (Synthroid -) 75 mcg PO ACBK [facility] Last Admin: 12/12/16 06:39 Dose: 75 mcg Loratadine (Claritin -) 10 mg PO DAILY [facility] Last Admin: 12/12/16 11:30 Dose: 10 mg Montelukast Sodium (Singulair -) 10 mg PO HS [facility] Last Admin: 12/11/16 22:18 Dose: 10 mg Non-Formulary Medication (Lovastatin [Lovastatin]) 20 mg PO DAILY [facility] Pantoprazole Sodium (Protonix -) 20 mg PO DAILY [facility] Last Admin: 12/12/16 11:30 Dose: 20 mg - Objective Vital Signs: Vital Signs Temperature 97.3 F L 12/12/16 14:02 Pulse Rate 68 12/12/16 14:02 Respiratory Rate 20 12/12/16 09:00 Blood Pressure 130/65 12/12/16 14:02 O2 Sat by Pulse Oximetry (%) 93 L 12/11/16 21:00 Constitutional: Yes: No Distress, Calm Cardiovascular: Yes: Regular Rate and Rhythm Respiratory: Yes: Regular, Rhonchi Gastrointestinal: Yes: Normal Bowel Sounds, Soft Musculoskeletal: Yes: WNL Extremities: Yes: WNL Neurological: Yes: Alert Psychiatric: Yes: Alert Labs: CBC, BMP 12/11/16 08:00 12/11/16 07:35 INR, PTT INR 1.25 (0.82-1.09) H 12/10/16 06:35 Assessment/Plan Patient is a 51-year-old female, resident of [facility], with significant past medical history of Down syndrome, HLD, hypothyroidism, hyponatremia, recurrent pneumonia was brought to the ED after she developed fever of 103F. # Sepsis secondary to HCAP # Aspiration precaution # Hyperlipidemia # Down syndrome with (mute, self abusive, agitative on/off) # Hypothyroidism # Normocytic anemia plan continue abx wbc normalized aspiration precautions incentive mason if possible
--- NOTE | 2016-12-12 15:36 | PN ---
Teaching Attending Note Name of Resident: Silverio Franco ATTENDING PHYSICIAN STATEMENT I saw and evaluated the patient. I reviewed the resident's note and discussed the case with the resident. I agree with the resident's findings and plan as documented. SUBJECTIVE:alert, resting comfortable OBJECTIVE: Last Vital Signs Temp Pulse Resp BP Pulse Ox 97.3 F L 68 20 130/65 93 L 12/12/16 14:02 12/12/16 14:02 12/12/16 09:00 12/12/16 14:02 12/11/16 21:00 General NAD CV S1 S2 RRR no murmur/rub/gallop Lungs CTA B/L anteriorly no wheezing ASSESSMENT AND PLAN: 51yo F with PMH Downs syndrome, hypothyroid and dyslipidemia presented to the ER and was admitted for further evaluation of their emergent condition 1. Sepsis due to HCAP vs aspiration PNA-afebrile. desaturated earlier to 80% now 98% on 2L NC. will try to titrate down as tolerated. on Zosyn day 3. plan for 5 days of abx then transition to po. 2. Normocytic anemia -dilutional component. appears to be around baseline Hgb. no indication for transfusion 3. Hypophosphatemia- resolved 4. DALE- likely due to sepsis. resolved. avoid nephrotoxic medications 5. DVT ppx- hep sq
--- NOTE | 2016-12-12 15:38 | PN ---
Addendum entered and electronically signed by Silverio Franco RES 12/12/16 17: 43: GENERAL: The patient is awake, alert, in no acute distress. HEAD: Normal with no signs of trauma. NECK: Trachea midline, full range of motion, supple. LUNGS: b/l basal rales to auscultation bilaterally, no wheezes, no accessory muscle use. HEART: Regular rate and rhythm, S1, S2 with systolic murmur 3/6, no rub or gallop. ABDOMEN: Soft, nontender, nondistended, normoactive bowel sounds, no guarding, no rebound, no hepatosplenomegaly, no masses. EXTREMITIES: 2+ pulses, warm, well-perfused, no edema. NEUROLOGICAL: non verbal, gait not observed. PSYCH: Normal mood, normal affect. SKIN: Warm, dry, normal turgor, no rashes or lesions noted Original Note: Physical Exam: SUBJECTIVE: Patient seen and examined Pt is awake, more active than yesterday, non verbal no fever overnight Pt is still coughing, non productive Pt is sitting in bed with sitter at bedside OBJECTIVE: Vital Signs Period Temp Pulse Resp BP Sys/Chinchilla Pulse Ox Last 24 Hr 97.3 F-99.9 F 63-106 20-20 100-140/56-77 93 GENERAL: The patient is awake, alert, in no acute distress. HEAD: Normal with no signs of trauma. ENT: Ears normal, nares patent, oropharynx clear without exudates, moist mucous membranes. NECK: Trachea midline, full range of motion, supple. LUNGS: Breath sounds equal, clear to auscultation bilaterally, no wheezes, no crackles, no accessory muscle use. HEART: Regular rate and rhythm, S1, S2 without murmur, rub or gallop. ABDOMEN: Soft, nontender, nondistended, normoactive bowel sounds, no guarding, no rebound, no hepatosplenomegaly, no masses. EXTREMITIES: 2+ pulses, warm, well-perfused, no edema. NEUROLOGICAL: Normal speech, gait not observed. PSYCH: Normal mood, normal affect. SKIN: Warm, dry, normal turgor, no rashes or lesions noted Active Medications Generic Name Dose Route Start Last Admin Trade Name Freq PRN Reason Stop Dose Admin Acetaminophen 650 mg 12/09/16 23:31 12/10/16 22:08 Tylenol - PO 650 mg Q6H PRN Administration FEVER OR PAIN Albuterol Sulfate 1 amp 12/10/16 15:57 Ventolin 0.083% Nebulizer Soln - NEB Q4H PRN SHORT OF BREATH/WHEEZING Albuterol/Ipratropium 1 amp 12/10/16 18:00 12/12/16 11:33 Duoneb - NEB 1 amp QIDR [facility] Administration Aripiprazole 20 mg 12/10/16 12:12 12/12/16 11:31 Abilify PO 20 mg DAILY [facility] Administration Ascorbic Acid 500 mg 12/10/16 10:00 12/12/16 11:30 Vitamin C - PO 500 mg DAILY W[facility] Administration Buspirone HCl 15 mg 12/10/16 06:00 12/12/16 13:59 Buspar - PO 15 mg TID WENDY Administration Calcium Carbonate/Cholecalciferol 1 tab 12/10/16 10:00 12/12/16 11:30 Os-Christian 500+D - PO 1 tab DAILY [facility] Administration Heparin Sodium (Porcine) 5,000 unit 12/10/16 22:00 12/12/16 11:30 Heparin - SQ 5,000 unit BID [facility] Administration Piperacillin Sod/Tazobactam Sod 50 mls @ 100 mls/hr 12/10/16 15:00 12/12/16 11: 30 Zosyn 3.375gm Ivpb (Pre-Docked) IVPB 100 mls/hr Q8H-IV [facility] Administration Protocol Levothyroxine Sodium 75 mcg 12/10/16 07:00 12/12/16 06:39 Synthroid - PO 75 mcg ACBK [facility] Administration Loratadine 10 mg 12/10/16 10:00 12/12/16 11:30 Claritin - PO 10 mg DAILY [facility] Administration Montelukast Sodium 10 mg 12/10/16 22:00 12/11/16 22:18 Singulair - PO 10 mg HS [facility] Administration Non-Formulary Medication 20 mg 12/10/16 10:00 Lovastatin [Lovastatin] PO DAILY [facility] Pantoprazole Sodium 20 mg 12/10/16 10:00 12/12/16 11:30 Protonix - PO 20 mg DAILY [facility] Administration CBC, BMP 12/11/16 08:00 12/11/16 07:35 Microbiology 12/09/16 14:53 Urine - Urine Clean Catch Urine Culture - Final NO GROWTH OBTAINED 12/09/16 14:53 Nasopharyngeal Swab Influenza Types A,B Antigen (MARY) - Final 12/09/16 14:53 Nasopharyngeal Swab - Final 12/09/16 14:53 Nasopharyngeal Swab Respiratory Virus Panel - Preliminary 12/09/16 14:53 Blood - Peripheral Venous Blood Culture - Preliminary NO GROWTH OBTAINED AFTER 72 HOURS, INCUBATION TO CONTINUE FOR 2 DAYS. 12/09/16 14:53 Blood - Peripheral Venous Blood Culture - Preliminary NO GROWTH OBTAINED AFTER 72 HOURS, INCUBATION TO CONTINUE FOR 2 DAYS. ASSESSMENT/PLAN: 51 year old female with pmh of down syndrome, Hypothyroidism, recurrent pneumonia from [facility] presented to the ED with fever, and non productive. She was found to have tachycardia, leukocytosis and new bibalisar infiltrates on CXR . Sepsis rt to HCAP likely due Aspiration In ED received Levaquin, Vancomycin, Zosyn on Zosyn 3.375 gm IV q8h day 3 Will give a toltal of 5 days of Iv antibiotics ID consulted Dr Liam RODRIGUEZ IV fluid O2 prn, keep O2 sat 90% Follow blood culture Speech therapist consulted, No change in diet right now, small bites, assist with feeding. Aspiration precaution Hyperlipidemia Continue Protonix 20mg po daily hypothyroidism Synthoid 75mcg daily Po Down syndrome with behavioral disorder Continue abilify and Buspirone Normocytic anemia today 9.0, hgb 9.2, was 10.3 before Likely due to dilution close to baseline will repeat CBC in am FEN Fluid: npo Electrolytes: no abnormalities Nutrition: Dysphagia puree diet DVT Prophylaxis: SCD Disposition: keep in hospital until clinical improvement of sepsis/pneumonia, continue Iv antibiotics Visit type - Emergency Visit Emergency Visit: Yes ED Registration Date: 12/09/16 Care time: The patient presented to the Emergency Department on the above date and was hospitalized for further evaluation of their emergent condition. - New Patient This patient is new to me today: Yes - Critical Care Critical Care patient: No - Discharge Referral Referred to [facility] Med P.C.: No
[2016-12-12] MEDS: ATORVASTATIN CA 10 MG TABLET (FP) PO SCH (22:12)
[2016-12-12] MEDS: MONTELUKAST NA 10 MG TABLET PO SCH (22:12)
[2016-12-13] MEDS: ALBUTEROL SO4 2.5/IPRATROPIUM 0.5 INH SOL 3 ML VIAL.NEB. NEB SCH ×4 (00:10→18:27)
[2016-12-13] MEDS: PIPERACILLIN/TAZOB 3.375 GM 50 ML IVPB SCH ×3 (01:32→17:09)
[2016-12-13] MEDS: busPIRone HCL 10 MG TABLET (FP) PO SCH ×3 (05:53→21:38)
[2016-12-13] MEDS: LEVOTHYROXINE NA 75 MCG TABLET (FP) PO SCH (06:02)
[2016-12-13] MEDS ORDERED: PT OWN MED DRAWER 7, Y5N ONE ×2 (09:36→13:33)
[2016-12-13] MEDS: LORATADINE 10 MG TABLET PO SCH (09:39)
[2016-12-13] MEDS: ASCORBIC ACID 500 MG TABLET (FP) PO SCH (09:39)
[2016-12-13] MEDS: PANTOPRAZOLE 20 MG TABLET (FP) PO SCH (09:39)
[2016-12-13] MEDS: HEPARIN NA (PORCINE) 5,000 UNITS/ML 1ML VIAL SQ SCH ×2 (09:39→21:39)
[2016-12-13] MEDS: CALCIUM 500MG/VIT-D 200 UNITS COMBO TABLET (FP) PO SCH (09:39)
[2016-12-13] MEDS: ARIPiprazole 10 MG TABLET PO SCH (09:40)
--- NOTE | 2016-12-13 12:53 | PN ---
Progress Note, COLLEGE SPECIALIST - Note Progress Note: Selected Entries 12/11/16 12/11/16 12/11/16 01:00 05:00 09:00 Breakfast Lunch Supper Temperature 97.5 F L 97.3 F L 97.8 F 12/11/16 12/11/16 12/12/16 14:25 21:12 05:00 Breakfast Lunch Supper Temperature 97.5 F L 99.9 F H 99.8 F H 12/12/16 12/12/16 12/12/16 09:00 10:10 14:02 Breakfast 75% Lunch 75% Supper Temperature 97.3 F L 97.3 F L 12/12/16 12/12/16 12/13/16 18:00 22:00 06:00 Breakfast Lunch Supper 75% Temperature 97.7 F 98.3 F 97.7 F 12/13/16 10:00 Breakfast Lunch Supper Temperature 98.2 F Sleeping. Sw rec reviewed with darcy.
--- NOTE | 2016-12-13 13:21 | MSN ---
Progress Note (short form) - Note Progress Note: SUBJECTIVE: Pt seen and examined at bedside. RUSS overnight. Pt appeared more agitated this morning. Pt has been receiving breathing treatments with Duonebs and Singulair. Pt was on NC when examined. Active Medications Generic Name Dose Route Start Last Admin Trade Name Freq PRN Reason Stop Dose Admin Acetaminophen 650 mg 12/09/16 23:31 12/10/16 22:08 Tylenol - PO 650 mg Q6H PRN Administration FEVER OR PAIN Albuterol Sulfate 1 amp 12/10/16 15:57 Ventolin 0.083% Nebulizer Soln - NEB Q4H PRN SHORT OF BREATH/WHEEZING Albuterol/Ipratropium 1 amp 12/10/16 18:00 12/13/16 11:44 Duoneb - NEB 1 amp QIDR WENDY Administration Aripiprazole 20 mg 12/10/16 12:12 12/13/16 09:40 Abilify PO 20 mg DAILY WENDY Administration Ascorbic Acid 500 mg 12/10/16 10:00 12/13/16 09:39 Vitamin C - PO 500 mg DAILY WENDY Administration Atorvastatin Calcium 10 mg 12/12/16 22:00 12/12/16 22:12 Lipitor - PO 10 mg HS WENDY Administration Buspirone HCl 15 mg 12/10/16 06:00 12/13/16 05:53 Buspar - PO 15 mg TID WENDY Administration Calcium Carbonate/Cholecalciferol 1 tab 12/10/16 10:00 12/13/16 09:39 Os-Christian 500+D - PO 1 tab DAILY WENDY Administration Heparin Sodium (Porcine) 5,000 unit 12/10/16 22:00 12/13/16 09:39 Heparin - SQ 5,000 unit BID WENDY Administration Piperacillin Sod/Tazobactam Sod 50 mls @ 100 mls/hr 12/10/16 15:00 12/13/16 09: 39 Zosyn 3.375gm Ivpb (Pre-Docked) IVPB 100 mls/hr Q8H-IV WENDY Administration Protocol Levothyroxine Sodium 75 mcg 12/10/16 07:00 12/13/16 06:02 Synthroid - PO 75 mcg ACBK WENDY Administration Loratadine 10 mg 12/10/16 10:00 12/13/16 09:39 Claritin - PO 10 mg DAILY WENDY Administration Montelukast Sodium 10 mg 12/10/16 22:00 12/12/16 22:12 Singulair - PO 10 mg HS WENDY Administration Pantoprazole Sodium 20 mg 12/10/16 10:00 12/13/16 09:39 Protonix - PO 20 mg DAILY WENDY Administration OBJECTIVE: Vital Signs Period Temp Pulse Resp BP Sys/Chinchilla Pulse Ox Last 24 Hr 97.3 F-98.3 F 62-70 18-18 122-130/58-68 95-97 GENERAL: Awake, alert, nonverbal, calm NECK: -JVD HEAD: NC, AT, EOMI, -scleral icterus/injection HEART: RRR, +S1/S2, + systolic murmur > @RUSB, -rubs/gallops LUNGS: Bibasilar crackles, -wheezing/rhonchi CBC, BMP 12/11/16 08:00 12/11/16 07:35 Microbiology 12/12/16 18:00 Legionella Antigen - Final Urine For Antigen Detection Streptococcus pneumoniae Antigen (M - Final 12/09/16 14:53 Blood Culture - Preliminary Blood - Peripheral Venous NO GROWTH OBTAINED AFTER 72 HOURS, INCUBATION TO CONTINUE FOR 2 DAYS. 12/09/16 14:53 Blood Culture - Preliminary Blood - Peripheral Venous NO GROWTH OBTAINED AFTER 72 HOURS, INCUBATION TO CONTINUE FOR 2 DAYS. A/P: Pt is a 51 yo F resident of [facility] with a PMHx of Down syndrome, HLD, hypothyroidism, hyponatremia, and recurrent pneumonia, who presents to the ED after having a recorded fever of 103F. Pt was found to be septic upon admission. 1. Sepsis 2/2 to HCAP vs. aspiration PNA -Improving with normalized WBC and no recorded fevers x48hrs -Hx of recurrent admissions for sepsis 2/2 PNA -? aspiration pneumonias. Before last discharge from [facility], pt was feeding herself and has a habit to eat very quickly, increasing her risk of aspiration. Since last discharge, caretakers have been doing the pt's feedings in order to decrease this risk -Levaquin, Vanc, Zosyn given in ED -ID consult appreciated. DC IV Vanc. Continue IV Zosyn 3.375g Q8H (day 4). ID wants 5 days IV ABX with transition to PO ABX for discharge. Follow ID recs -IVF stopped -Nasal O2 prn. Sat was 95% with 2L NC this morning during rounds. Will attempt to wean off NC and perform pre and post. Pt is not on supplemental O2 at [facility] -Blood Cx NGTD x72hrs -Urine Cx NGTD -Urine Ag negative 2. Aspiration precautions -Pt is on thick puree diet at nursing facility. Cont with that diet in hospital -MBS (07/2016): trace aspiration with thick nectar but severely impaired esophageal emptying. Small, frequent feedings were recommended -Swallow evaluation appreciated. No need for MBS this admission. Continue current diet with dishwasher busser feedings 3. Normocytic anemia -Hgb baseline seems to be below nml based on previous admissions (~10g/dL) 4. DALE -Likely 2/2 sepsis -Resolved 5. Hypophosphatemia -Resolved 6. Torticollis -Recurring head tilt whenever pt becomes sick according to dishwasher busser -Noticed the same thing before last admission one month ago to [facility] -Observe for improvement 7. HLD -Continue Lovastatin 20mg PO daily 8. Down syndrome (mute, self abusive, agitated on/off) -Continue Aripiprazole 20mg PO daily -Continue Buspirone 15mg PO TID 9. Hypothyroidism -Continue Synthroid 75mcg PO daily 10. FEN -IVF stopped. Pt is tolerating PO diet and HD stable -BMP WNL. Continue to monitor and replete as needed -Thick pureed diet 11. DVT ppx -SCDs -Heparin 5000U SQ BID 12. Dispo -Admitted to Med-Surg. Possible discharge Friday (12/16) morning. -[facility] has met with pt and dishwasher busser and has discussed possibility of being discharged to different nursing facility for increased care of medical needs. Will follow. Chang Wray, MS3 Problem List - Problems (1) Aspiration into respiratory tract (2) Leukocytosis (3) Pneumonia (4) Hyperlipidemia (5) Acute onset sepsis (6) HCAP (healthcare-associated pneumonia) (7) Sepsis (8) Down's syndrome (9) Hypothyroidism
--- NOTE | 2016-12-13 14:59 | PN ---
Physical Exam: SUBJECTIVE: Patient seen and examined Pt is very active NO s/s of active distress no n/v Still having cough non productive Was on room air this morning OBJECTIVE: Vital Signs Period Temp Pulse Resp BP Sys/Chinchilla Pulse Ox Last 24 Hr 97.7 F-98.3 F 62-70 18-18 122-130/58-68 95-97 GENERAL: The patient is awake, alert, in no acute distress. HEAD: Normal with no signs of trauma. NECK: Trachea midline, full range of motion, supple. LUNGS: mininal b/l basal rales to auscultation bilaterally, no wheezes, no accessory muscle use. HEART: Regular rate and rhythm, S1, S2 with systolic murmur 3/6, no rub or gallop. ABDOMEN: Soft, nontender, nondistended, normoactive bowel sounds, no guarding, no rebound, no hepatosplenomegaly, no masses. EXTREMITIES: 2+ pulses, warm, well-perfused, no edema. NEUROLOGICAL: non verbal, gait not observed. PSYCH: Normal mood, normal affect. SKIN: Warm, dry, normal turgor, no rashes or lesions noted Active Medications Generic Name Dose Route Start Last Admin Trade Name Freq PRN Reason Stop Dose Admin Acetaminophen 650 mg 12/09/16 23:31 12/10/16 22:08 Tylenol - PO 650 mg Q6H PRN Administration FEVER OR PAIN Albuterol Sulfate 1 amp 12/10/16 15:57 Ventolin 0.083% Nebulizer Soln - NEB Q4H PRN SHORT OF BREATH/WHEEZING Albuterol/Ipratropium 1 amp 12/10/16 18:00 12/13/16 11:44 Duoneb - NEB 1 amp QIDR WENDY Administration Aripiprazole 20 mg 12/10/16 12:12 12/13/16 09:40 Abilify PO 20 mg DAILY WENDY Administration Ascorbic Acid 500 mg 12/10/16 10:00 12/13/16 09:39 Vitamin C - PO 500 mg DAILY WENDY Administration Atorvastatin Calcium 10 mg 12/12/16 22:00 12/12/16 22:12 Lipitor - PO 10 mg HS WENDY Administration Buspirone HCl 15 mg 12/10/16 06:00 12/13/16 13:44 Buspar - PO 15 mg TID WENDY Administration Calcium Carbonate/Cholecalciferol 1 tab 12/10/16 10:00 12/13/16 09:39 Os-Christian 500+D - PO 1 tab DAILY WENDY Administration Heparin Sodium (Porcine) 5,000 unit 12/10/16 22:00 12/13/16 09:39 Heparin - SQ 5,000 unit BID WENDY Administration Piperacillin Sod/Tazobactam Sod 50 mls @ 100 mls/hr 12/10/16 15:00 12/13/16 09: 39 Zosyn 3.375gm Ivpb (Pre-Docked) IVPB 100 mls/hr Q8H-IV WENDY Administration Protocol Levothyroxine Sodium 75 mcg 12/10/16 07:00 12/13/16 06:02 Synthroid - PO 75 mcg ACBK WENDY Administration Loratadine 10 mg 12/10/16 10:00 12/13/16 09:39 Claritin - PO 10 mg DAILY WENDY Administration Montelukast Sodium 10 mg 12/10/16 22:00 12/12/16 22:12 Singulair - PO 10 mg HS WENDY Administration Pantoprazole Sodium 20 mg 12/10/16 10:00 12/13/16 09:39 Protonix - PO 20 mg DAILY WENDY Administration CBC, BMP 12/11/16 08:00 12/11/16 07:35 ASSESSMENT/PLAN: 51 year old female with pmh of down syndrome, Hypothyroidism, recurrent pneumonia from [facility] presented to the ED with fever, and non productive. She was found to have tachycardia, leukocytosis and new bibalisar infiltrates on CXR . Sepsis rt to HCAP likely due Aspiration In ED received Levaquin, Vancomycin, Zosyn on Zosyn 3.375 gm IV q8h day 4 Will give a total of 5 days of Iv antibiotics ID consulted Dr Wheeler O2 prn, keep O2 sat 90% Follow blood culture Speech therapist consulted, No change in diet right now, small bites, assist with feeding. Aspiration precaution Hyperlipidemia Continue Protonix 20mg po daily hypothyroidism Synthoid 75mcg daily Po Down syndrome with behavioral disorder Continue abilify and Buspirone Normocytic anemia last hgb 9.0, hgb 9.2, was 10.3 before Likely due to dilution close to baseline FEN Fluid: none Electrolytes: no abnormalities Nutrition: Dysphasia puree diet DVT Prophylaxis: SCD Disposition: Pt showed clinical improvement of sepsis/pneumonia, continue Iv antibiotics until completion. Visit type - Emergency Visit Emergency Visit: Yes ED Registration Date: 12/09/16 Care time: The patient presented to the Emergency Department on the above date and was hospitalized for further evaluation of their emergent condition. - New Patient This patient is new to me today: Yes - Critical Care Critical Care patient: No - Discharge Referral Referred to [facility] No
--- NOTE | 2016-12-13 15:07 | PN ---
Progress Note, Physician History of Present Illness: stable better breathing well still coughing minimal sputum now - Current Medication List Current Medications: Active Medications Acetaminophen (Tylenol -) 650 mg PO Q6H PRN PRN Reason: FEVER OR PAIN Last Admin: 12/10/16 22:08 Dose: 650 mg Albuterol Sulfate (Ventolin 0.083% Nebulizer Soln -) 1 amp NEB Q4H PRN PRN Reason: SHORT OF BREATH/WHEEZING Albuterol/Ipratropium (Duoneb -) 1 amp NEB QIDR [facility] Last Admin: 12/13/16 11:44 Dose: 1 amp Aripiprazole (Abilify) 20 mg PO DAILY [facility] Last Admin: 12/13/16 09:40 Dose: 20 mg Ascorbic Acid (Vitamin C -) 500 mg PO DAILY [facility] Last Admin: 12/13/16 09:39 Dose: 500 mg Atorvastatin Calcium (Lipitor -) 10 mg PO HS [facility] Last Admin: 12/12/16 22:12 Dose: 10 mg Buspirone HCl (Buspar -) 15 mg PO TID [facility] Last Admin: 12/13/16 13:44 Dose: 15 mg Calcium Carbonate/Cholecalciferol (Os-Christian 500+D -) 1 tab PO DAILY [facility] Last Admin: 12/13/16 09:39 Dose: 1 tab Heparin Sodium (Porcine) (Heparin -) 5,000 unit SQ BID [facility] Last Admin: 12/13/16 09:39 Dose: 5,000 unit Piperacillin Sod/Tazobactam Sod (Zosyn 3.375gm Ivpb (Pre-Docked)) 50 mls @ 100 mls/hr IVPB Q8H-IV WENDY PRN Reason: Protocol Last Admin: 12/13/16 09:39 Dose: 100 mls/hr Levothyroxine Sodium (Synthroid -) 75 mcg PO ACBK [facility] Last Admin: 12/13/16 06:02 Dose: 75 mcg Loratadine (Claritin -) 10 mg PO DAILY [facility] Last Admin: 12/13/16 09:39 Dose: 10 mg Montelukast Sodium (Singulair -) 10 mg PO HS [facility] Last Admin: 12/12/16 22:12 Dose: 10 mg Pantoprazole Sodium (Protonix -) 20 mg PO DAILY [facility] Last Admin: 12/13/16 09:39 Dose: 20 mg - Objective Vital Signs: Vital Signs Temperature 97.8 F 12/13/16 14:49 Pulse Rate 65 12/13/16 14:49 Respiratory Rate 18 12/13/16 10:00 Blood Pressure 130/65 12/13/16 14:49 O2 Sat by Pulse Oximetry (%) 95 12/13/16 11:43 Constitutional: Yes: No Distress, Calm Cardiovascular: Yes: Regular Rate and Rhythm Respiratory: Yes: Regular, Poor Air Entry Gastrointestinal: Yes: Normal Bowel Sounds, Soft Musculoskeletal: Yes: WNL Extremities: Yes: WNL Neurological: Yes: Alert, Other Psychiatric: Yes: Alert Labs: CBC, BMP 12/11/16 08:00 12/11/16 07:35 INR, PTT INR 1.25 (0.82-1.09) H 12/10/16 06:35 Assessment/Plan Patient is a 51-year-old female, resident of [facility], with significant past medical history of Down syndrome, HLD, hypothyroidism, hyponatremia, recurrent pneumonia was brought to the ED after she developed fever of 103F. # Sepsis secondary to HCAP # Aspiration precaution # Hyperlipidemia # Down syndrome with (mute, self abusive, agitative on/off) # Hypothyroidism # Normocytic anemia plan continue abx wbc normalized aspiration precautions incentive mason if possible will start deescalating from friday
--- NOTE | 2016-12-13 15:23 | PN ---
Teaching Attending Note Name of Resident: Silverio Franco ATTENDING PHYSICIAN STATEMENT I saw and evaluated the patient. I reviewed the resident's note and discussed the case with the resident. I agree with the resident's findings and plan as documented. SUBJECTIVE:resting comfortable. non-verbal OBJECTIVE: Last Vital Signs Temp Pulse Resp BP Pulse Ox 97.8 F 65 18 130/65 95 12/13/16 14:49 12/13/16 14:49 12/13/16 10:00 12/13/16 14:49 12/13/16 11:43 General NAD Lungs CTA B/L anteriorly no wheezing ASSESSMENT AND PLAN: 51yo F with PMH Downs syndrome, hypothyroid and dyslipidemia presented to the ER and was admitted for further evaluation of their emergent condition 1. Sepsis due to HCAP vs aspiration PNA-afebrile. now 98% on 2L NC. will try to titrate down as tolerated. on Zosyn day 4. plan for 5 days of abx then transition to po. 2. Normocytic anemia -dilutional component. appears to be around baseline Hgb. no indication for transfusion 3. Hypophosphatemia- resolved 4. DALE- likely due to sepsis. resolved. avoid nephrotoxic medications 5. DVT ppx- hep sq
[2016-12-13] MEDS: ATORVASTATIN CA 10 MG TABLET (FP) PO SCH (21:39)
[2016-12-13] MEDS: MONTELUKAST NA 10 MG TABLET PO SCH (21:39)
[2016-12-14] MEDS: ALBUTEROL SO4 2.5/IPRATROPIUM 0.5 INH SOL 3 ML VIAL.NEB. NEB SCH ×4 (00:27→18:08)
[2016-12-14] MEDS: PIPERACILLIN/TAZOB 3.375 GM 50 ML IVPB SCH ×3 (01:39→18:01)
[2016-12-14] MEDS: LEVOTHYROXINE NA 75 MCG TABLET (FP) PO SCH (06:05)
[2016-12-14] MEDS: busPIRone HCL 10 MG TABLET (FP) PO SCH ×3 (06:05→22:09)
[2016-12-14] MEDS: PATIENT'S OWN MEDICATION (NON-FORMULARY) (Lovastatin [Lovastatin] 20 MG) PO SCH ×2 (07:38→07:47)
[2016-12-14] MEDS ORDERED: PT OWN MED DRAWER 7, Y5N ONE ×2 (09:34→22:08)
[2016-12-14] MEDS: LORATADINE 10 MG TABLET PO SCH (09:42)
[2016-12-14] MEDS: ASCORBIC ACID 500 MG TABLET (FP) PO SCH (09:42)
[2016-12-14] MEDS: PANTOPRAZOLE 20 MG TABLET (FP) PO SCH (09:42)
[2016-12-14] MEDS: HEPARIN NA (PORCINE) 5,000 UNITS/ML 1ML VIAL SQ SCH ×2 (09:42→22:09)
[2016-12-14] MEDS: CALCIUM 500MG/VIT-D 200 UNITS COMBO TABLET (FP) PO SCH (09:42)
[2016-12-14] MEDS: ARIPiprazole 10 MG TABLET PO SCH (09:43)
--- NOTE | 2016-12-14 13:22 | PN ---
Progress Note, Physician History of Present Illness: stable looks much better still cough present with greenish sputum - Current Medication List Current Medications: Active Medications Acetaminophen (Tylenol -) 650 mg PO Q6H PRN PRN Reason: FEVER OR PAIN Last Admin: 12/10/16 22:08 Dose: 650 mg Albuterol Sulfate (Ventolin 0.083% Nebulizer Soln -) 1 amp NEB Q4H PRN PRN Reason: SHORT OF BREATH/WHEEZING Albuterol/Ipratropium (Duoneb -) 1 amp NEB QIDR COUNTS INCLUDE 234 BEDS AT THE [facility] Last Admin: 12/14/16 11:34 Dose: 1 amp Aripiprazole (Abilify) 20 mg PO DAILY COUNTS INCLUDE 234 BEDS AT THE [facility] Last Admin: 12/14/16 09:43 Dose: 20 mg Ascorbic Acid (Vitamin C -) 500 mg PO DAILY COUNTS INCLUDE 234 BEDS AT THE [facility] Last Admin: 12/14/16 09:42 Dose: 500 mg Atorvastatin Calcium (Lipitor -) 10 mg PO HS COUNTS INCLUDE 234 BEDS AT THE [facility] Last Admin: 12/13/16 21:39 Dose: 10 mg Buspirone HCl (Buspar -) 15 mg PO TID COUNTS INCLUDE 234 BEDS AT THE [facility] Last Admin: 12/14/16 06:05 Dose: 15 mg Calcium Carbonate/Cholecalciferol (Os-Christian 500+D -) 1 tab PO DAILY COUNTS INCLUDE 234 BEDS AT THE [facility] Last Admin: 12/14/16 09:42 Dose: 1 tab Heparin Sodium (Porcine) (Heparin -) 5,000 unit SQ BID COUNTS INCLUDE 234 BEDS AT THE [facility] Last Admin: 12/14/16 09:42 Dose: 5,000 unit Piperacillin Sod/Tazobactam Sod (Zosyn 3.375gm Ivpb (Pre-Docked)) 50 mls @ 100 mls/hr IVPB Q8H-IV WENDY PRN Reason: Protocol Last Admin: 12/14/16 09:43 Dose: 100 mls/hr Levothyroxine Sodium (Synthroid -) 75 mcg PO ACBK COUNTS INCLUDE 234 BEDS AT THE [facility] Last Admin: 12/14/16 06:05 Dose: 75 mcg Loratadine (Claritin -) 10 mg PO DAILY COUNTS INCLUDE 234 BEDS AT THE [facility] Last Admin: 12/14/16 09:42 Dose: 10 mg Montelukast Sodium (Singulair -) 10 mg PO HS COUNTS INCLUDE 234 BEDS AT THE [facility] Last Admin: 12/13/16 21:39 Dose: 10 mg Pantoprazole Sodium (Protonix -) 20 mg PO DAILY COUNTS INCLUDE 234 BEDS AT THE [facility] Last Admin: 12/14/16 09:42 Dose: 20 mg - Objective Vital Signs: Vital Signs Temperature 97.8 F 12/14/16 11:00 Pulse Rate 98 H 12/14/16 12:05 Respiratory Rate 20 12/14/16 11:00 Blood Pressure 103/68 12/14/16 11:00 O2 Sat by Pulse Oximetry (%) 92 L 12/14/16 12:05 Constitutional: Yes: No Distress, Calm Cardiovascular: Yes: Regular Rate and Rhythm Respiratory: Yes: Regular, CTA Bilaterally Gastrointestinal: Yes: Normal Bowel Sounds, Soft Musculoskeletal: Yes: WNL Extremities: Yes: WNL Neurological: Yes: Alert Psychiatric: Yes: Alert Labs: CBC, BMP 12/11/16 08:00 12/11/16 07:35 INR, PTT INR 1.25 (0.82-1.09) H 12/10/16 06:35 Assessment/Plan Patient is a 51-year-old female, resident of [facility], with significant past medical history of Down syndrome, HLD, hypothyroidism, hyponatremia, recurrent pneumonia was brought to the ED after she developed fever of 103F. # Sepsis secondary to HCAP # Aspiration precaution # Hyperlipidemia # Down syndrome with (mute, self abusive, agitative on/off) # Hypothyroidism # Normocytic anemia plan continue abx wbc normalized aspiration precautions incentive mason if possible
--- NOTE | 2016-12-14 16:04 | PN ---
Progress Note (short form) - Note Progress Note: non-verbal. resting comfortable Current Medications Generic Name Dose Route Start Last Admin Trade Name Freq PRN Reason Stop Dose Admin Acetaminophen 650 mg 12/09/16 23:31 12/10/16 22:08 Tylenol - PO 650 mg Q6H PRN Administration FEVER OR PAIN Albuterol Sulfate 1 amp 12/10/16 15:57 Ventolin 0.083% Nebulizer Soln - NEB Q4H PRN SHORT OF BREATH/WHEEZING Albuterol/Ipratropium 1 amp 12/10/16 18:00 12/14/16 11:34 Duoneb - NEB 1 amp QIDR WENDY Administration Aripiprazole 20 mg 12/10/16 12:12 12/14/16 09:43 Abilify PO 20 mg DAILY WENDY Administration Ascorbic Acid 500 mg 12/10/16 10:00 12/14/16 09:42 Vitamin C - PO 500 mg DAILY WENDY Administration Atorvastatin Calcium 10 mg 12/12/16 22:00 12/13/16 21:39 Lipitor - PO 10 mg HS WENDY Administration Buspirone HCl 15 mg 12/10/16 06:00 12/14/16 13:57 Buspar - PO 15 mg TID WENDY Administration Calcium Carbonate/Cholecalciferol 1 tab 12/10/16 10:00 12/14/16 09:42 Os-Christian 500+D - PO 1 tab DAILY WENDY Administration Heparin Sodium (Porcine) 5,000 unit 12/10/16 22:00 12/14/16 09:42 Heparin - SQ 5,000 unit BID WENDY Administration Piperacillin Sod/Tazobactam Sod 50 mls @ 100 mls/hr 12/10/16 15:00 12/14/16 09: 43 Zosyn 3.375gm Ivpb (Pre-Docked) IVPB 100 mls/hr Q8H-IV WENDY Administration Protocol Levothyroxine Sodium 75 mcg 12/10/16 07:00 12/14/16 06:05 Synthroid - PO 75 mcg ACBK WENDY Administration Loratadine 10 mg 12/10/16 10:00 12/14/16 09:42 Claritin - PO 10 mg DAILY WENDY Administration Montelukast Sodium 10 mg 12/10/16 22:00 12/13/16 21:39 Singulair - PO 10 mg HS WENDY Administration Pantoprazole Sodium 20 mg 12/10/16 10:00 12/14/16 09:42 Protonix - PO 20 mg DAILY WENDY Administration Last Vital Signs Temp Pulse Resp BP Pulse Ox 97.5 F L 85 20 103/37 92 L 12/14/16 15:05 12/14/16 15:05 12/14/16 15:05 12/14/16 15:05 12/14/16 12:05 General NAD CV S1 S2 + Lungs CTA B/L anteriorly no wheezing ASSESSMENT AND PLAN: 51yo F with PMH Downs syndrome, hypothyroid and dyslipidemia presented to the ER and was admitted for further evaluation of their emergent condition 1. Sepsis due to HCAP vs aspiration PNA-afebrile. saturating well on RA. does not qualify for home O2. on 5. abx per ID. plan to transition to po on friday per ID 2. Normocytic anemia -dilutional component. appears to be around baseline Hgb. no indication for transfusion 3. Hypophosphatemia- resolved 4. DALE- likely due to sepsis. resolved. avoid nephrotoxic medications 5. DVT ppx- hep sq Visit type - Emergency Visit Emergency Visit: Yes ED Registration Date: 12/09/16 Care time: The patient presented to the Emergency Department on the above date and was hospitalized for further evaluation of their emergent condition. - New Patient This patient is new to me today: No - Critical Care Critical Care patient: No - Discharge Referral Referred to [facility] No
[2016-12-14] MEDS: ATORVASTATIN CA 10 MG TABLET (FP) PO SCH (22:09)
[2016-12-14] MEDS: MONTELUKAST NA 10 MG TABLET PO SCH (22:09)
[2016-12-15] MEDS: ALBUTEROL SO4 2.5/IPRATROPIUM 0.5 INH SOL 3 ML VIAL.NEB. NEB SCH ×4 (00:06→18:26)
[2016-12-15] MEDS: PIPERACILLIN/TAZOB 3.375 GM 50 ML IVPB SCH ×3 (02:00→18:59)
[2016-12-15] MEDS ORDERED: PT OWN MED DRAWER 7, Y5N ONE ×4 (06:01→22:10)
[2016-12-15] MEDS: LEVOTHYROXINE NA 75 MCG TABLET (FP) PO SCH (06:02)
[2016-12-15] MEDS: busPIRone HCL 10 MG TABLET (FP) PO SCH ×3 (06:03→22:14)
[2016-12-15] MEDS: ARIPiprazole 10 MG TABLET PO SCH (11:33)
[2016-12-15] MEDS: LORATADINE 10 MG TABLET PO SCH (11:33)
[2016-12-15] MEDS: PANTOPRAZOLE 20 MG TABLET (FP) PO SCH (11:34)
[2016-12-15] MEDS: HEPARIN NA (PORCINE) 5,000 UNITS/ML 1ML VIAL SQ SCH ×2 (11:34→22:16)
[2016-12-15] MEDS: ASCORBIC ACID 500 MG TABLET (FP) PO SCH (11:34)
[2016-12-15] MEDS: CALCIUM 500MG/VIT-D 200 UNITS COMBO TABLET (FP) PO SCH (11:34)
--- NOTE | 2016-12-15 13:57 | PN ---
Progress Note (short form) - Note Progress Note: non-verbal. resting comfortable Current Medications Generic Name Dose Route Start Last Admin Trade Name Freq PRN Reason Stop Dose Admin Acetaminophen 650 mg 12/09/16 23:31 12/10/16 22:08 Tylenol - PO 650 mg Q6H PRN Administration FEVER OR PAIN Albuterol Sulfate 1 amp 12/10/16 15:57 Ventolin 0.083% Nebulizer Soln - NEB Q4H PRN SHORT OF BREATH/WHEEZING Albuterol/Ipratropium 1 amp 12/10/16 18:00 12/15/16 11:29 Duoneb - NEB 1 amp QIDR WENDY Administration Aripiprazole 20 mg 12/10/16 12:12 12/15/16 11:33 Abilify PO 20 mg DAILY WENDY Administration Ascorbic Acid 500 mg 12/10/16 10:00 12/15/16 11:34 Vitamin C - PO 500 mg DAILY WENDY Administration Atorvastatin Calcium 10 mg 12/12/16 22:00 12/14/16 22:09 Lipitor - PO 10 mg HS WENDY Administration Buspirone HCl 15 mg 12/10/16 06:00 12/15/16 06:03 Buspar - PO 15 mg TID WENDY Administration Calcium Carbonate/Cholecalciferol 1 tab 12/10/16 10:00 12/15/16 11:34 Os-Christian 500+D - PO 1 tab DAILY WENDY Administration Heparin Sodium (Porcine) 5,000 unit 12/10/16 22:00 12/15/16 11:34 Heparin - SQ 5,000 unit BID WENDY Administration Piperacillin Sod/Tazobactam Sod 50 mls @ 100 mls/hr 12/10/16 15:00 12/15/16 11: 32 Zosyn 3.375gm Ivpb (Pre-Docked) IVPB 100 mls/hr Q8H-IV WENDY Administration Protocol Levothyroxine Sodium 75 mcg 12/10/16 07:00 12/15/16 06:02 Synthroid - PO 75 mcg ACBK WENDY Administration Loratadine 10 mg 12/10/16 10:00 12/15/16 11:33 Claritin - PO 10 mg DAILY WENDY Administration Montelukast Sodium 10 mg 12/10/16 22:00 12/14/16 22:09 Singulair - PO 10 mg HS WENDY Administration Pantoprazole Sodium 20 mg 12/10/16 10:00 12/15/16 11:34 Protonix - PO 20 mg DAILY WENDY Administration Last Vital Signs Temp Pulse Resp BP Pulse Ox 98.0 F 53 L 20 109/56 92 L 12/15/16 06:00 12/15/16 11:28 12/15/16 06:00 12/15/16 06:00 12/15/16 11:28 General NAD CV S1 S2 + Lungs CTA B/L anteriorly no wheezing ASSESSMENT AND PLAN: 51yo F with PMH Downs syndrome, hypothyroid and dyslipidemia presented to the ER and was admitted for further evaluation of their emergent condition 1. Sepsis due to HCAP vs aspiration PNA-afebrile. desaturated on RA earlier requiring 2L NC to mantain spO2 >90 %. currently saturating 97% on RA. if desaturates again will check to see if qualifies for home O2 tomorrow. on Zosyn day 6. abx per ID. will complete abx course tomorrow. 2. Normocytic anemia -dilutional component. appears to be around baseline Hgb. no indication for transfusion 3. Hypophosphatemia- resolved 4. DALE- likely due to sepsis. resolved. avoid nephrotoxic medications 5. DVT ppx- hep sq Visit type - Emergency Visit Emergency Visit: Yes ED Registration Date: 12/09/16 Care time: The patient presented to the Emergency Department on the above date and was hospitalized for further evaluation of their emergent condition. - New Patient This patient is new to me today: No - Critical Care Critical Care patient: No - Discharge Referral Referred to [facility] Med [facility] No
--- NOTE | 2016-12-15 15:59 | PN ---
Progress Note, Physician History of Present Illness: stable looks much better cough decreasing - Current Medication List Current Medications: Active Medications Acetaminophen (Tylenol -) 650 mg PO Q6H PRN PRN Reason: FEVER OR PAIN Last Admin: 12/10/16 22:08 Dose: 650 mg Albuterol/Ipratropium (Duoneb -) 1 amp NEB QIDR [facility] Last Admin: 12/15/16 11:29 Dose: 1 amp Aripiprazole (Abilify) 20 mg PO DAILY [facility] Last Admin: 12/15/16 11:33 Dose: 20 mg Ascorbic Acid (Vitamin C -) 500 mg PO DAILY [facility] Last Admin: 12/15/16 11:34 Dose: 500 mg Atorvastatin Calcium (Lipitor -) 10 mg PO HS [facility] Last Admin: 12/14/16 22:09 Dose: 10 mg Buspirone HCl (Buspar -) 15 mg PO TID [facility] Last Admin: 12/15/16 15:06 Dose: 15 mg Calcium Carbonate/Cholecalciferol (Os-Christian 500+D -) 1 tab PO DAILY [facility] Last Admin: 12/15/16 11:34 Dose: 1 tab Heparin Sodium (Porcine) (Heparin -) 5,000 unit SQ BID [facility] Last Admin: 12/15/16 11:34 Dose: 5,000 unit Piperacillin Sod/Tazobactam Sod (Zosyn 3.375gm Ivpb (Pre-Docked)) 50 mls @ 100 mls/hr IVPB Q8H-IV [facility] PRN Reason: Protocol Last Admin: 12/15/16 11:32 Dose: 100 mls/hr Levothyroxine Sodium (Synthroid -) 75 mcg PO ACBK [facility] Last Admin: 12/15/16 06:02 Dose: 75 mcg Loratadine (Claritin -) 10 mg PO DAILY [facility] Last Admin: 12/15/16 11:33 Dose: 10 mg Montelukast Sodium (Singulair -) 10 mg PO HS [facility] Last Admin: 12/14/16 22:09 Dose: 10 mg Pantoprazole Sodium (Protonix -) 20 mg PO DAILY [facility] Last Admin: 12/15/16 11:34 Dose: 20 mg - Objective Vital Signs: Vital Signs Temperature 98.2 F 12/15/16 08:30 Pulse Rate 53 L 12/15/16 11:28 Respiratory Rate 18 12/15/16 08:30 Blood Pressure 104/49 12/15/16 08:30 O2 Sat by Pulse Oximetry (%) 92 L 12/15/16 11:28 Constitutional: Yes: No Distress, Calm Cardiovascular: Yes: Regular Rate and Rhythm Respiratory: Yes: Regular, CTA Bilaterally Gastrointestinal: Yes: Normal Bowel Sounds, Soft Musculoskeletal: Yes: WNL Extremities: Yes: WNL Neurological: Yes: Alert, Oriented Psychiatric: Yes: Alert Labs: CBC, BMP 12/11/16 08:00 12/11/16 07:35 INR, PTT INR 1.25 (0.82-1.09) H 12/10/16 06:35 Assessment/Plan Patient is a 51-year-old female, resident of [facility], with significant past medical history of Down syndrome, HLD, hypothyroidism, hyponatremia, recurrent pneumonia was brought to the ED after she developed fever of 103F. # Sepsis secondary to HCAP # Aspiration precaution # Hyperlipidemia # Down syndrome with (mute, self abusive, agitative on/off) # Hypothyroidism # Normocytic anemia plan continue abx wbc normalized aspiration precautions incentive mason if possible stop abx tomorrow
[2016-12-15] MEDS: ATORVASTATIN CA 10 MG TABLET (FP) PO SCH (22:14)
[2016-12-15] MEDS: MONTELUKAST NA 10 MG TABLET PO SCH (22:16)
[2016-12-16] MEDS: PIPERACILLIN/TAZOB 3.375 GM 50 ML IVPB SCH ×2 (01:35→10:03)
[2016-12-16] MEDS: LEVOTHYROXINE NA 75 MCG TABLET (FP) PO SCH (06:15)
[2016-12-16] MEDS: busPIRone HCL 10 MG TABLET (FP) PO SCH ×2 (06:15→13:59)
[2016-12-16] MEDS ORDERED: PT OWN MED DRAWER 7, Y5N ONE ×4 (09:57→13:53)
[2016-12-16] MEDS: ASCORBIC ACID 500 MG TABLET (FP) PO SCH (10:02)
[2016-12-16] MEDS: ARIPiprazole 10 MG TABLET PO SCH (10:02)
[2016-12-16] MEDS: LORATADINE 10 MG TABLET PO SCH (10:02)
[2016-12-16] MEDS: CALCIUM 500MG/VIT-D 200 UNITS COMBO TABLET (FP) PO SCH (10:02)
[2016-12-16] MEDS: HEPARIN NA (PORCINE) 5,000 UNITS/ML 1ML VIAL SQ SCH (10:02)
[2016-12-16] MEDS: PANTOPRAZOLE 20 MG TABLET (FP) PO SCH (10:02)
--- NOTE | 2016-12-16 11:04 | DS ---
Physical Exam: SUBJECTIVE: Patient seen and examined Pt is awake, alert, non verbal Pt is very active, interactive today, at baseline No fever, no chills No chest pain or son no cough eating well Home health aid at bedside Pt is off oxygen OBJECTIVE: Vital Signs Period Temp Pulse Resp BP Sys/Chinchilla Pulse Ox Last 24 Hr 97.8 F-98 F 53-88 18-18 100-105/55-58 92-95 PHYSICAL EXAM GENERAL: The patient is awake, alert, in no acute distress. HEAD: Normal with no signs of trauma. NECK: Trachea midline, full range of motion, supple. LUNGS: clear to auscultation bilaterally, no wheezes, no accessory muscle use. HEART: Regular rate and rhythm, S1, S2 with systolic murmur 3/6, no rub or gallop. ABDOMEN: Soft, nontender, nondistended, normoactive bowel sounds, no guarding, no rebound, no hepatosplenomegaly, no masses. EXTREMITIES: 2+ pulses, warm, well-perfused, no edema. NEUROLOGICAL: non verbal, gait not observed. PSYCH: Normal mood, normal affect. SKIN: Warm, dry, normal turgor, no rashes or lesions noted LABS CBC, BMP 12/11/16 08:00 12/11/16 07:35 HOSPITAL COURSE: Date of Admission:12/09/16 Patient is a 51-year-old female, resident of [facility], was brought to the ED after she developed fever of 103F. As per the certified caregiver, patient had fever x 1 day and dry cough since 2 days. She mentions no change in behavior, patient is at baseline- mute, self abusive, agitative on/off, needs help in all daily activities, understands few sign language and obeys few commands. Patient has a h/o recurrent aspiration due to pneumonia. property caretaker says patient is on thick puree diet, feeds herself and tries to eat very fast which may be the reason for her frequent aspiration. Since yesterday, certified caregiver has noticed that patient has been tilting her head on the right side at all times which is unusual for her. No ear discharge or recent ear infection.No h/o diarrhoea or constipation. Recent hospitalization at [facility] on 11/10/16 admitted with the diagnosis of Sepsis secondary to Pneumonia and was discharged on Augmentin and steroids for 3 days. ER course was notable for: (1) Temperature 102.7 F; Tachycardic 103 bpm, Hypoxia 93 spo2 in RA; Leukocytosis 22.8; H/H 10.3/32 (2) CXR- Right upper lobe infiltrate; Bibasilar infiltrates (3) Benadryl, IV Tylenol; IV Levofloxacin 750mg; IV Vancomycin, IV zosyn. 51 year old female with pmh of down syndrome, Hypothyroidism, recurrent pneumonia from [facility] presented to the ED with fever, and non productive. She was found to have tachycardia, leukocytosis and new bibalisar infiltrates on CXR . Patient was dignosed with Sepsis rt to HCAP likely due Aspiration. In ED received Levaquin, Vancomycin, Zosyn. ID was consulted Dr Wheeler. He reccomends Zosyn IV, Pt completed at full course of 7 days Iv antibiotics. No need for PO on discharge. Blood culture was negative. O2 was administered prn, keep O2 sat 90%. Pt no longer needs oxygen she had been stable off oxygen in last 24hours. Speech therapist was consulted, No change in diet right now, small bites, assist with feeding. Aspiration precaution. Pt has history of Hyperlipidemia. We Continue Protonix 20mg po daily. Pt has h/o hypothyroidism, we Synthoid 75mcg daily Po. Pt has Down syndrome with behavioral disorder, We Continued abilify and Buspirone. Pt had Normocytic anemia, it was Likely due to dilution, Hgb was close to baseline and remained stable. Pt had DALE which was likely due to sepsis which was resolved with IV fluid. Follow up with PCP within 1 week of discharge. Pt may resume home medications. Date of Discharge: 12/16/16 Minutes to complete discharge: 40 Discharge Summary Reason For Visit: LEUKOCYTOSIS/HEALTHCARE ACQ PNEUMONIA Current Active Problems Aspiration into respiratory tract (Acute) Leukocytosis (Acute) Pneumonia (Acute) Hyperlipidemia (Chronic) Hyponatremia (Chronic) Mental retardation (Chronic) Condition: Stable - Instructions Diet, Activity, Other Instructions: Discharge to Custodial Resume home activity Resume Home diet Resume Home medication Follow up with Primary care physician within 1 week Per Speech therapist Patient has Mild Impairment and cannot rule out silent aspiration at bedside. Patient need to get assistance whenb eating. Eat 1/2 tsp. at a time, Elevate Head of bed during feed, Out Of Bed for meals, Out Of Bed for 1 hour after meals,. Feed slowly. several smaller meals throughout the day. No continuous drinking. Single sips She recommends for the patient to be on Dysphagia Puree, with medications Crushed with applesauce and liquids [place] Thick. Supplement may be Ensure compact between meals You start having fever, chills, cough, productive sputum, shortness of breath, fatigue, these could be sign of a lung infection, please come back to the emergency department or follow up with you primary care physician Referrals: Indira Hanson [Primary Care Provider] - [facility]position[facility] - Home Medications Comprehensive Discharge Medication List: Ambulatory Orders Acetaminophen [Tylenol] 325 mg PO Q4H PRN 12/09/16 Albuterol 2.5/Ipratropium 0.5 [Duoneb -] 1 amp NEB BID 12/09/16 Alendronate Sodium [Binosto] 70 mg PO WEEKLY 12/09/16 Aripiprazole [Abilify] 20 mg PO DAILY 12/09/16 Ascorbate Calcium [Vitamin C] 500 mg PO DAILY 12/09/16 Buspirone HCl [Buspar -] 15 mg PO TID 12/09/16 Calcium Carbonate/Vitamin D3 [Calcium 600 + Vit D Tablet] 1 each PO DAILY Cetirizine HCl [Zyrtec -] 10 mg PO DAILY 12/09/16 Levothyroxine [Synthroid -] 75 mcg PO DAILY 12/09/16 Lovastatin 20 mg PO DAILY 12/09/16 Montelukast Na [Singulair -] 10 mg PO HS 12/09/16 Omeprazole 20 mg PO DAILY 12/09/16 Albuterol Sulfate Inhaler - [Ventolin HFA Inhaler -] 1 - 2 inh PO Q4H PRN #1 inhaler 12/16/16 This patient is new to me today: Yes Date on this admission: 12/16/16 Emergency Visit: Yes ED Registration Date: 12/09/16 Care time: The patient presented to the Emergency Department on the above date and was hospitalized for further evaluation of their emergent condition. Critical Care patient: No - Discharge Referral Referred to [facility] Med P.C.: No
--- NOTE | 2016-12-16 11:12 | PN ---
Teaching Attending Note Name of Resident: Silverio Franco ATTENDING PHYSICIAN STATEMENT I saw and evaluated the patient. I reviewed the resident's note and discussed the case with the resident. I agree with the resident's findings and plan as documented. SUBJECTIVE:resting comfortable OBJECTIVE: Last Vital Signs Temp Pulse Resp BP Pulse Ox 97.8 F 68 18 105/58 95 12/16/16 06:00 12/16/16 06:00 12/16/16 06:00 12/16/16 06:00 12/15/16 22:00 General NAD CV S1 S2 + Lungs CTA B/L anteriorly no wheezing ASSESSMENT AND PLAN: 51yo F with PMH Downs syndrome, hypothyroid and dyslipidemia presented to the ER and was admitted for further evaluation of their emergent condition 1. Sepsis due to HCAP vs aspiration PNA-afebrile. no repeated episodes of desaturation. completes 7 day course of zosyn today. no need for oral abx. 2. Normocytic anemia -dilutional component. appears to be around baseline Hgb. no indication for transfusion 3. Hypophosphatemia- resolved 4. DALE- likely due to sepsis. resolved. avoid nephrotoxic medications 5. DVT ppx- hep sq 6. d/c to [facility]
[2016-12-16 11:31] VITALS: BP 90/54; PULSE 71; TEMP 96.7
== END 2016-12-16 14:15 | disposition home or self-care (01) | DRG 871 ==
LOC: JER 14:33 → JERBED 21:39 → UNDOADMIN 23:10 → J6S 12-10 01:34
PROVIDERS: ADMIT Internal Medicine; ATTEND Internal Medicine
DX: A41.9 Sepsis, unspecified organism (principal); J69.0 Pneumonitis due to inhalation of food and vomit; E87.1 Hypo-osmolality and hyponatremia; N17.9 Acute kidney failure, unspecified; Q90.9 Down syndrome, unspecified; E78.00 Pure hypercholesterolemia, unspecified; E03.9 Hypothyroidism, unspecified; F78 Other intellectual disabilities; F91.8 Other conduct disorders; D72.829 Elevated white blood cell count, unspecified; D64.9 Anemia, unspecified; M43.6 Torticollis; E83.39 Other disorders of phosphorus metabolism
CPT/HCPCS: 36415; 70450-TC; 70491-TC; 71010-TC; 80048; 80053; 81003; 82550; 82803; 83605; 83735; 84100; 84484; 85025; 85027; 85610; 85730; 86850; 86900; 86901; 87040; 87086; 87254; 87804; 87899; 93005; 93010; 94640; 94761; 99285-25; J1644